=== PATIENT | male | born 1950 | race Caucasian/White ===

== ENCOUNTER 2021-01-14 12:41 | Inpatient (IN) ==
[2021-01-14] MEDS: MAGNESIUM SULFATE / D5W 1 GM/100 ML BAG IV SCH ×4 (13:26→14:55)
[2021-01-14] MEDS: METOPROLOL TARTRATE 1 MG/ML VIAL IV PRN ×3 (13:26→18:02)
--- NOTE | 2021-01-14 13:27 | XRay Report ---
XR chest 1V portable HISTORY: Atypical Chest Pain COMPARISON: None. FINDINGS: The cardiac silhouette is mildly enlarged. There is a tortuous thoracic aorta. No focal russell g consolidations to suggest pneumonia. No evidence for pulmonary edema. No pleural effusions. No pneu mothorax. Right retrocardiac linear density may represent a normal pulmonary vessel or subsegmental a telectasis. IMPRESSION: Mild cardiomegaly. Otherwise, no acute process within the chest. ACT 112: Negative or not required by law. Electronically signed by: Onel Tracy M.D. 01/14/2021 1:26 PM
[2021-01-14 13:32] LABS: Basophils # (auto) 0.01 K/uL (0-0.2); Basophils % (auto) 0.1 %; Hematocrit (blood only) 45.2 % (42-52); Hemoglobin 15.1 g/dL (14.0-18.0); Immature Granulocytes # (auto) 0.06 K/uL (0.00-0.02); Immature Granulocytes % (auto) 0.5 %; Lymphocytes # (auto) 2.52 K/uL (1.2-3.4); Lymphocytes % (auto) 22.1 %; Mean Corpuscular Hemoglobin 32.4 pg (25-34); Mean Corpuscular Hgb Conc 33.4 g/dL (32-36); Mean Platelet Volume 12.5 fL (7.4-10.4); Neutrophils # (auto) 8.01 K/uL (1.4-6.5); Neutrophils % (auto) 70.3 %; Platelet Count 274 K/uL (130-400); RDW Coefficient of Variation 13.9 % (11.5-14.5); RDW Standard Deviation 49.3 fL (36.4-46.3); Red Blood Count 4.66 M/uL (4.7-6.1)
[2021-01-14 13:39] LABS: INR 1.1 (0.9-1.1); Partial Thromboplastin Time 25.2 Seconds (21.0-31.0); Prothrombin Time 11.3 Seconds (9.0-12.0)
[2021-01-14 13:48] LABS: Albumin Level 3.7 gm/dl (3.4-5.0); BUN Creatinine Ratio 20.4 (10-20); Calcium 8.8 mg/dl (8.5-10.1); Creatinine Clr Calc Pharmacy 78.2 ml/min; Est GFR (Non-African American) 66.4 ml/min; Potassium 4.3 mmol/L (3.5-5.1)
[2021-01-14 14:03] LABS: Albumin Globulin Ratio 1.5 (0.9-2); Creatine Kinase MB 4.1 ng/ml (0.5-3.6); Globulin 2.5 gm/dl (2.5-4.0); Total Protein 6.2 gm/dl (6.4-8.2); Troponin I 0.048 ng/ml (0-0.045)
[2021-01-14] MEDS ORDERED: Heparin IV Adult Wt-Based Standard *NO* Bolus Protocol IV ONE (14:03)
[2021-01-14] MEDS: HEPARIN SODIUM/DEXTROSE 25,000 UNITS/500 ML BAG IV SCH (14:54)
[2021-01-14] MEDS ORDERED: FUROSEMIDE 40 MG/4 ML VIAL IV STA (15:24)
--- NOTE | 2021-01-14 16:51 | Emergency Department Note ---
Impression & Plan Atrial fibrillation with rapid ventricular response, Elevated troponin ED Provider Note NAME: RITU PEÑA AGE: 70 SEX: M : 1950 ARRIVES VIA: Walk-In INFORMANT: Patient, ED PROVIDER(S): Nabor Perdue MD CHIEF COMPLAINT: SOB, afib HPI: This is a 70-year-old male who presents emergency department complaining of shortness of breath. The patient reports he was diagnosed with atrial fibrillation by his primary care physician on Thursday. At that time the patient was prescribed Eliquis as well as metoprolol. The patient did not take any of his medications as he thought he was only supposed to take them if he was feeling short of breath. The patient reports he feels short of breath anytime he exerts himself. He reports rest makes this better. He reports that this sensation has been ongoing for months. 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 Prior to arriving in the emergency department the patient started his metoprolol. ROS: See above HPI for pertinent positives & negatives. A total of 10 systems reviewed and were otherwise negative. PAST MEDICAL HISTORY: See Below PAST SURGICAL HISTORY: See Below FAMILY HISTORY: See Below SOCIAL HISTORY: See Below HOME MEDICATIONS: See Below ALLERGIES: See Below VITALS: See Below PHYSICAL EXAMINATION: VITAL SIGNS - Vital signs and nursing notes were reviewed. GENERAL - 70-year-old male appearing stated age who is in no acute distress. Communicates well with provider and answers questions appropriately. SKIN - Without rashes. HEAD - NC/AT. EYES - PERRL with EOMI bilaterally. Sclera anicteric. Palpebral conjunctiva pink and moist with no injection noted. EARS - No deformities of external structures noted on gross examination bilaterally. NOSE - Midline and without cyanosis. No epistaxis or purulent drainage noted. Septum midline without deviation or septal hematoma noted. MOUTH/OROPHARYNX - Without perioral cyanosis. Buccal mucosa pink and moist and without leukoplakia. Tongue midline with equal elevation of palate bilaterally. No tonsillar hypertrophy, erythema, or exudates noted. NECK - Neck with FROM. Supple to palpation. No nuchal rigidity. LUNGS - Chest wall symmetric without accessory muscle use, intercostals retractions, or central cyanosis. Normal vesicular breath sounds CTA B/L. No wheezes, rales, or rhonchi appreciated. CARDIAC - RRR with S1/S2. No murmur, rubs, or gallops appreciated. ABDOMEN - Abdominal contour without pulsations or visible masses. BS normoactive all four quadrants. No tenderness, palpable masses, hepatosplenomegaly, or ascites noted. EXTREMITIES - No clubbing or peripheral cyanosis. No pretibial edema present. +3/5 radial, posterior tibial, and dorsalis pedis pulses palpated throughout. +5/5 strength noted in UE/LE bilaterally. NEUROLOGIC - Cranial nerves II through XII grossly intact. Sensory intact to light touch throughout. Patellar reflexes +2/4. PSYCH - A&Ox3 and cooperates fully with examiner. Pt is very pleasant and interacts well with examiner. MEDICAL DECISION MAKING: Patient was seen and evaluated as above in room A3. Review was performed of nursing notes and vital signs. I did review pertinent previous visits and patie nt history. After obtaining a thorough history and physical examination the above work up was performed. This is a 70-year-old male sent in to the emergency department over concerns about A. fib with RVR. The patient took metoprolol prior to coming into the emergency department. For this reason he was given IV Lopressor here in the emergency department. He was also given 4 g of magnesium and started on a heparin drip. Patient does have an elevation in his troponin I did discuss the case with the medicine service who did agree to meet the patient. Chest x-ray was interpreted by me does not show any evidence of pneumonia congestion pneumothorax. An order was placed for continuous cardiac monitoring. The monitor shows a rate of 167 with Afib rhythm. The patient was evaluated during a period of high volume and high acuity during the global COVID-19 pandemic, and that diagnosis was suspected/considered upon their initial presentation. Their evaluation, treatment and testing was consistent with current guidelines for patients who present with complaints or symptoms that may be related to COVID-19. Patient was seen while provider was wearing PPE. Triage Nursing notes reviewed. Prior medical records reviewed Vital Signs: reviewed and remarkable for no significant abnormalities Differential diagnosis: Reactive airway disease, pneumonia, pneumothorax, COPD, CHF, infections, cardiac ischemia, pulmonary embolism, musculoskeletal, gastrointestinal, as well as other pathologies. ER treatment provided: See below Diagnostics interpreted by me: ECG: A. fib with RVR with PVC old anterior infarct no ST elevation or depression QTC is 448 ventricular rate is [address] elevation or depression no previous EKG available. Laboratory studies: As stated above and show below. Imaging studies: See below Consultation(s): Internal Medicine Critical Care: I have personally spent greater than 30 minutes of critical care time in the direct management of this patient. This includes bedside care, interpretation of diagnostic studies, and testing, discussion with consultants, patient, and family members, and other required patient management activities. This 30 minutes is in excess of all separately billable procedures. 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 Beliefs That Will Affect Care: None Current Living Situation: Alone Other Information That Helps Us Care for You: No Feels Safe at Home: Yes Safety Concerns: Feels Safe At This Time Assistive Devices: None Allergies Allergies Allergy/AdvReac Type Severity Reaction Status Date / Time No Known Allergies Allergy Unverified 01/14/21 14:14 Home Meds Home Medications Medication Instructions Recorded Confirmed apixaban 5 mg tablet (Eliquis) 5 mg PO BID 01/14/21 01/14/21 fenofibrate nanocrystallized 145 145 mg PO DAILY 01/14/21 01/14/21 mg tablet lisinopril 40 mg tablet 40 mg PO DAILY 01/14/21 01/14/21 metoprolol tartrate 25 mg tablet 25 mg PO TID 01/14/21 01/14/21 prednisone 10 mg tablet 10 mg PO DAILY PRN 01/14/21 01/14/21 Results & Data (ED) Vital Signs Vital Signs - 24 hr 01/14/21 12:53 01/14/21 13:00 01/14/21 13:17 Temperature 36.6 C Temperature Source Skin Pulse Rate 150 H Pulse Rate [Finger] 151 H Respiratory Rate 18 20 Respiratory Effort / Characteristics Non-Labored Spontaneous Respiratory Depth Normal Respiratory Pattern Regular Blood Pressure 122/73 Blood Pressure [Left Arm] Blood Pressure [Right Arm] 113/90 Blood Pressure Mean 89 Blood Pressure Mean [Left Arm] Blood Pressure Mean [Right Arm] 97 Blood Pressure Position [Right Arm] Sitting Pulse Oximetry 95 97 Oxygen Delivery Method Room Air Room Air Sepsis Recent Fever Within 48 Hours No Sepsis New/Unexplained Change in Mental Status No Sepsis Action Taken by Nursing No Action Required 01/14/21 13:26 01/14/21 14:04 01/14/21 14:09 Temperature Temperature Source Pulse Rate 144 H 144 H Pulse Rate [Finger] 132 H Respiratory Rate 20 Respiratory Effort / Characteristics Non-Labored Spontaneous Respiratory Depth Normal Respiratory Pattern Regular Blood Pressure 113/90 109/80 Blood Pressure [Left Arm] Blood Pressure [Right Arm] 101/81 Blood Pressure Mean Blood Pressure Mean [Left Arm] Blood Pressure Mean [Right Arm] 87 Blood Pressure Position [Right Arm] Pulse Oximetry 97 Oxygen Delivery Method Room Air Sepsis Recent Fever Within 48 Hours Sepsis New/Unexplained Change in Mental Status Sepsis Action Taken by Nursing 01/14/21 15:00 01/14/21 15:18 01/14/21 16:46 Temperature Temperature Source Pulse Rate Pulse Rate [Finger] 138 H 120 H 129 H Respiratory Rate 21 20 22 Respiratory Effort / Characteristics Non-Labored Spontaneous Non-Labored Non-Labored Respiratory Depth Normal Normal Normal Respiratory Pattern Regular Blood Pressure Blood Pressure [Left Arm] 103/73 Blood Pressure [Right Arm] 104/69 98/63 L 103/73 Blood Pressure Mean Blood Pressure Mean [Left Arm] 83 Blood Pressure Mean [Right Arm] 80 74 83 Blood Pressure Position [Right Arm] Pulse Oximetry 97 96 95 Oxygen Delivery Method Room Air Room Air Room Air Sepsis Recent Fever Within 48 Hours Sepsis New/Unexplained Change in Mental Status Sepsis Action Taken by Nursing Laboratory Data Result diagrams: 01/18/21 07:02 01/18/21 07:02 Lab Results 01/14/21 01/14/21 01/14/21 Range/Units 13:13 13:13 13:13 WBC 11.40 H (4.8-10.8) K/uL RBC 4.66 L (4.7-6.1) M/uL Hgb 15.1 (14.0-18.0) g/dL Hct 45.2 (42-52) % MCV 97.0 (80-100) fL MCH 32.4 (25-34) pg MCHC 33.4 (32-36) g/dL RDW Std Deviation 49.3 H (36.4-46.3) fL RDW Coeff of Racheal 13.9 (11.5-14.5) % Plt Count 274 (130-400) K/uL MPV 12.5 H (7.4-10.4) fL Immature Gran % (Auto) 0.5 % Neut % (Auto) 70.3 % Lymph % (Auto) 22.1 % Placer % (Auto) 7.0 % Eos % (Auto) 0.0 % Baso % (Auto) 0.1 % Neut # (Auto) 8.01 H (1.4-6.5) K/uL Lymph # (Auto) 2.52 (1.2-3.4) K/uL Placer # (Auto) 0.80 H (0.11-0.59) K/uL Eos # (Auto) 0.00 (0-0.5) K/uL Baso # (Auto) 0.01 (0-0.2) K/uL Immature Gran # (Auto) 0.06 H (0.00-0.02) K/uL PT 11.3 (9.0-12.0) Seconds INR 1.1 (0.9-1.1) APTT 25.2 (21.0-31.0) Seconds PTT Ratio 1.0 Sodium 129 L (136-145) mmol/L Potassium 4.3 (3.5-5.1) mmol/L Chloride 102 (98-107) mmol/L Carbon Dioxide 24 (21-32) mmol/L Anion Gap 3.0 (3-11) BUN 23 H (7-18) mg/dl Creatinine 1.13 (0.6-1.4) mg/dl Est Cr Clr Drug Dosing 78.2 ml/min Est GFR ( Amer) 77.0 ml/min Est GFR (Non-Af Amer) 66.4 ml/min BUN/Creatinine Ratio 20.4 H (10-20) Glucose 103 H (70-99) mg/dl Calcium 8.8 (8.5-10.1) mg/dl Total Bilirubin 1.0 (0.2-1) mg/dl AST 101 H (15-37) U/L ALT 94 H (12-78) U/L Alkaline Phosphatase 50 (45-117) U/L Total Creatine Kinase 100 (39-308) U/L CK-MB (CK-2) 4.1 H (0.5-3.6) ng/ml CK/CKMB % Calc 4.1 H (0-3.0) Troponin I 0.048 H* (0-0.045) ng/ml NT-Pro-B Natriuret Pep 4963 H (0-900) pg/ml Total Protein 6.2 L (6.4-8.2) gm/dl Albumin 3.7 (3.4-5.0) gm/dl Globulin 2.5 (2.5-4.0) gm/dl Albumin/Globulin Ratio 1.5 (0.9-2) COVID-19 Eval Order SARS-CoV-2 (PCR) (Negative) 01/14/21 01/14/21 Range/Units 13:56 13:56 WBC (4.8-10.8) K/uL RBC (4.7-6.1) M/uL Hgb (14.0-18.0) g/dL Hct (42-52) % MCV (80-100) fL MCH (25-34) pg MCHC (32-36) g/dL RDW Std Deviation (36.4-46.3) fL RDW Coeff of Racheal (11.5-14.5) % Plt Count (130-400) K/uL MPV (7.4-10.4) fL Immature Gran % (Auto) % Neut % (Auto) % Lymph % (Auto) % Placer % (Auto) % Eos % (Auto) % Baso % (Auto) % Neut # (Auto) (1.4-6.5) K/uL Lymph # (Auto) (1.2-3.4) K/uL Placer # (Auto) (0.11-0.59) K/uL Eos # (Auto) (0-0.5) K/uL Baso # (Auto) (0-0.2) K/uL Immature Gran # (Auto) (0.00-0.02) K/uL PT (9.0-12.0) Seconds INR (0.9-1.1) APTT (21.0-31.0) Seconds PTT Ratio Sodium (136-145) mmol/L Potassium (3.5-5.1) mmol/L Chloride (98-107) mmol/L Carbon Dioxide (21-32) mmol/L Anion Gap (3-11) BUN (7-18) mg/dl Creatinine (0.6-1.4) mg/dl Est Cr Clr Drug Dosing ml/min Est GFR ( Amer) ml/min Est GFR (Non-Af Amer) ml/min BUN/Creatinine Ratio (10-20) Glucose (70-99) mg/dl Calcium (8.5-10.1) mg/dl Total Bilirubin (0.2-1) mg/dl AST (15-37) U/L ALT (12-78) U/L Alkaline Phosphatase (45-117) U/L Total Creatine Kinase (39-308) U/L CK-MB (CK-2) (0.5-3.6) ng/ml CK/CKMB % Calc (0-3.0) Troponin I (0-0.045) ng/ml NT-Pro-B Natriuret Pep (0-900) pg/ml Total Protein (6.4-8.2) gm/dl Albumin (3.4-5.0) gm/dl Globulin (2.5-4.0) gm/dl Albumin/Globulin Ratio (0.9-2) COVID-19 Eval Order Covid19 at [facility] SARS-CoV-2 (PCR) NEGATIVE (Negative) Administered Medications Apixaban (Apixaban 5 Mg Tablet) 5 mg PO BID FORMERLY [facility], 1928[facility]1983 Stop: 02/15/21 20:59 Last Admin: 01/18/21 08:05 Dose: 5 mg Documented by: [id number] Admin: 01/17/21 19:58 Dose: 5 mg Documented by: [id number] Admin: 01/17/21 09:11 Dose: 5 mg Documented by: [id number] Admin: 01/16/21 20:41 Dose: 5 mg Documented by: [id number] Digoxin (Digoxin 0.125 Mg Tab) 0.125 mg PO DAILY@1600 FOR[facility]LY [facility], [facility]–1983 Stop: 02/15/21 15:59 Last Admin: 01/18/21 15:47 Dose: 0.125 mg Documented by: [id number] Admin: 01/17/21 16:57 Dose: 0.125 mg Documented by: [id number] Admin: 01/16/21 16:30 Dose: 0.125 mg Documented by: [id number] Folic Acid (Folic Acid 1 Mg Tab) 1 mg PO QAM TERRY Stop: 02/14/21 12:29 Last Admin: 01/18/21 08:05 Dose: 1 mg Documented by: [id number] Admin: 01/17/21 09:11 Dose: 1 mg Documented by: [id number] Admin: 01/16/21 07:41 Dose: 1 mg Documented by: [id number] Admin: 01/15/21 13:31 Dose: 1 mg Documented by: [id number] Guaifenesin/Dextromethorphan (Guaifenesin/Dextrom Syrup 100mg/10mg 5ml Udc) 5 ml PO Q6H PRN PRN Reason: Cough Stop: 02/17/21 18:51 Last Admin: 01/18/21 19:29 Dose: 5 ml Documented by: [id number] Thiamine HCl (Thiamine Hcl 100 Mg Tab) 100 mg PO QAM TERRY Stop: 02/14/21 12:29 Last Admin: 01/18/21 08:05 Dose: 100 mg Documented by: [id number] Admin: 01/17/21 09:10 Dose: 100 mg Documented by: [id number] Admin: 01/16/21 07:41 Dose: 100 mg Documented by: [id number] Admin: 01/15/21 13:31 Dose: 100 mg Documented by: [id number] Discontinued Medications Amiodarone HCl (Amiodarone Iv Bolus & Drip) 1 ea IV NOW STA; Protocol Stop: 01/14/21 18:34 Last Admin: 01/14/21 19:45 Dose: Not Given Documented by: [id number] Apixaban (Apixaban 2.5 Mg Tab) 5 mg PO BID TERRY Stop: 02/14/21 08:59 Last Admin: 01/16/21 07:40 Dose: 5 mg Documented by: [id number] Admin: 01/15/21 20:46 Dose: 5 mg Documented by: [id number] Admin: 01/15/21 09:13 Dose: 5 mg Documented by: [id number] Benzocaine/Butamben/Tetracaine HCl (Benzocain/Tetraca/Butam Knott 200 Appln/20 Gm Decherd) Confirm Administered Dose 1 appln EXT .STK-MED ONE Stop: 01/16/21 12:05 Last Admin: 01/16/21 13:57 Dose: Not Given Documented by: [id number] Benzocaine/Butamben/Tetracaine HCl (Benzocain/Tetraca/Butam Knott 200 Appln/20 Gm Decherd) Confirm Administered Dose 1 appln EXT .STK-MED ONE Stop: 01/16/21 12:06 Last Admin: 01/16/21 13:57 Dose: Not Given Documented by: [id number] Fenofibrate (Fenofibrate Nanocrystallized 145 Mg Tablet) 145 mg PO HS [facility], [facility]1983 Stop: 02/13/21 23:29 Last Admin: 01/15/21 20:43 Dose: 145 mg Documented by: [id number] Admin: 01/14/21 23:31 Dose: 145 mg Documented by: [id number] Fentanyl Citrate (Fentanyl Citrate 100 Mcg/2 Ml Vial) Confirm Administered Dose 100 mcg .ROUTE .STK-MED ONE Stop: 01/16/21 11:29 Last Admin: 01/16/21 13:56 Dose: Not Given Documented by: [id number] Furosemide (Furosemide 40 Mg/4 Ml Vial) 40 mg IV NOW STA Stop: 01/14/21 15:25 Last Admin: 01/14/21 15:40 Dose: 40 mg Documented by: [id number] Furosemide (Furosemide 40 Mg Tab) 40 mg PO QAM [facility], [facility]1983 Stop: 02/17/21 08:59 Last Admin: 01/18/21 08:05 Dose: 40 mg Documented by: [id number] Heparin Sodium/Dextrose (Heparin Iv Adult Wt-Based Standard *No* Bolus Protocol) 1 ea IV ONE ONE; Protocol Stop: 01/14/21 14:04 Last Admin: 01/14/21 14:54 Dose: Not Given Documented by: [id number] Magnesium Sulfate/Dextrose (Magnesium Sulfate / D5w) 1 gm in 100 mls @ 200 mls/hr IV Q30M TERRY Stop: 01/14/21 14:18 Last Infusion: 01/14/21 15:25 Dose: 0 mls/hr Documented by: [id number] Admin: 01/14/21 14:55 Dose: 200 mls/hr Documented by: [id number] Infusion: 01/14/21 14:46 Dose: 0 mls/hr Documented by: [id number] Admin: 01/14/21 13:26 Dose: 200 mls/hr Documented by: [id number] Magnesium Sulfate/Dextrose (Magnesium Sulfate / D5w) 1 gm in 100 mls @ 200 mls/hr IV Q30M TERRY Stop: 01/14/21 14:19 Last Infusion: 01/14/21 16:48 Dose: 0 mls/hr Documented by: [id number] Admin: 01/14/21 14:55 Dose: 200 mls/hr Documented by: [id number] Infusion: 01/14/21 14:46 Dose: 0 mls/hr Documented by: [id number] Admin: 01/14/21 13:26 Dose: 200 mls/hr Documented by: [id number] Heparin Sodium/Dextrose (Heparin Sodium/Dextrose) 25,000 units in 500 mls @ 30 mls/hr IV .[id number] FOR[facility], [facility]; Protocol Stop: 02/13/21 14:29 Last Titration: 01/15/21 09:11 Dose: 0 units/hr, 0 mls/hr Documented by: [id number] Cosigned by: [id number] Admin: 01/15/21 06:38 Dose: 1,500 units/hr, 30 mls/hr Documented by: [id number] Cosigned by: [id number] Titration: 01/15/21 06:38 Dose: 1,500 units/hr, 30 mls/hr Documented by: [id number] Cosigned by: [id number] Titration: 01/15/21 02:37 Dose: 1,500 units/hr, 30 mls/hr Documented by: [id number] Cosigned by: [id number] Titration: 01/14/21 21:43 Dose: 1,600 units/hr, 32 mls/hr Documented by: [id number] Cosigned by: [id number] Admin: 01/14/21 14:54 Dose: 1,600 units/hr, 32 mls/hr Documented by: [id number] Cosigned by: [id number] Amiodarone HCl/Dextrose (Nexterone / D5w) 150 mg in 100 mls @ 600 mls/hr IV NOW [facility] Stop: 01/14/21 18:42 Last Infusion: 01/14/21 19:19 Dose: 0 mls/hr Documented by: [id number] Cosigned by: [id number] Admin: 01/14/21 19:08 Dose: 600 mls/hr Documented by: [id number] Cosigned by: [id number] Amiodarone HCl/Dextrose (Nexterone / D5w) 360 mg in 200 mls @ 33.333 mls/hr IV ONE ONE Stop: 01/15/21 00:38 Last Admin: 01/14/21 19:47 Dose: Not Given Documented by: [id number] Digoxin 250 mcg/ Syringe 10 mls @ 2 mls/min IV ONE ONE Stop: 01/15/21 08:49 Last Admin: 01/15/21 09:14 Dose: 2 mls/min Documented by: [id number] Furosemide 40 mg/ Syringe 4 mls @ 4 mls/min IV ONE ONE Stop: 01/15/21 09:01 Last Admin: 01/15/21 09:13 Dose: 4 mls/min Documented by: [id number] Digoxin 250 mcg/ Syringe 10 mls @ 2 mls/min IV Q8H [facility], [facility]1983 Stop: 01/16/21 07:00 Last Admin: 01/16/21 02:21 Dose: 2 mls/min Documented by: [id number] Admin: 01/15/21 18:12 Dose: 2 mls/min Documented by: [id number] Admin: 01/15/21 12:16 Dose: 2 mls/min Documented by: [id number] Furosemide 40 mg/ Syringe 5 mls @ 4 mls/min IV [id number] [facility], [facility]–1983 Stop: 02/14/21 16:59 Last Admin: 01/17/21 09:11 Dose: 4 mls/min Documented by: [id number] Admin: 01/16/21 16:28 Dose: 4 mls/min Documented by: [id number] Admin: 01/16/21 07:42 Dose: 4 mls/min Documented by: [id number] Admin: 01/15/21 17:06 Dose: 4 mls/min Documented by: [id number] Magnesium Sulfate/Dextrose (Magnesium Sulfate / D5w) 1 gm in 100 mls @ 50 mls/hr IV Q2H TERRY Stop: 01/16/21 16:29 Last Infusion: 01/16/21 17:43 Dose: 0 mls/hr Documented by: [id number] Admin: 01/16/21 15:23 Dose: 50 mls/hr Documented by: [id number] Infusion: 01/16/21 15:18 Dose: 50 mls/hr Documented by: [id number] Admin: 01/16/21 13:18 Dose: 50 mls/hr Documented by: [id number] Magnesium Sulfate/Dextrose (Magnesium Sulfate / D5w) 1 gm in 100 mls @ 50 mls/hr IV ONE ONE Stop: 01/17/21 12:59 Last Infusion: 01/17/21 13:21 Dose: 0 mls/hr Documented by: [id number] Admin: 01/17/21 11:12 Dose: 50 mls/hr Documented by: [id number] Lidocaine HCl (Lidocaine 2% 2 Ml Vial/Amp(20mg/Ml)) Confirm Administered Dose 4 ml INFIL .STK-MED ONE Stop: 01/16/21 11:29 Last Admin: 01/16/21 13:57 Dose: Not Given Documented by: [id number] Metoprolol Tartrate (Metoprolol Tartrate 1 Mg/Ml Vial) 5 mg IV Q5M PRN PRN Reason: Tachycardia Stop: 02/13/21 13:18 Last Admin: 01/14/21 18:02 Dose: 5 mg Documented by: [id number] Admin: 01/14/21 14:09 Dose: 5 mg Documented by: [id number] Admin: 01/14/21 13:26 Dose: 5 mg Documented by: [id number] Metoprolol Tartrate (Metoprolol Tartrate 25 Mg Tab) 25 mg PO Q6H TERRY Stop: 02/13/21 19:29 Last Admin: 01/16/21 18:28 Dose: 25 mg Documented by: [id number] Admin: 01/16/21 14:03 Dose: 25 mg Documented by: [id number] Admin: 01/16/21 06:30 Dose: 25 mg Documented by: [id number] Admin: 01/16/21 01:34 Dose: Not Given Documented by: [id number] Admin: 01/15/21 18:35 Dose: 25 mg Documented by: [id number] Admin: 01/15/21 13:31 Dose: 25 mg Documented by: [id number] Admin: 01/15/21 06:01 Dose: 25 mg Documented by: [id number] Admin: 01/15/21 02:01 Dose: Not Given Documented by: [id number] Admin: 01/14/21 20:42 Dose: 25 mg Documented by: [id number] Metoprolol Tartrate (Metoprolol Tartrate 25 Mg Tab) 25 mg PO Q6H PRN PRN Reason: HR >140 Stop: 02/13/21 19:29 Last Admin: 01/16/21 10:25 Dose: 25 mg Documented by: [id number] Admin: 01/15/21 18:11 Dose: 25 mg Documented by: [id number] Metoprolol Tartrate (Metoprolol Tartrate 25 Mg Tab) 25 mg PO QAM ONE Stop: 01/18/21 13:51 Last Admin: 01/18/21 14:56 Dose: 25 mg Documented by: [id number] Miscellaneous (Stat Iv Infusion Titration Per Protocol) 1 ea N/A NOW STA Stop: 01/14/21 18:34 Last Admin: 01/14/21 19:46 Dose: Not Given Documented by: [id number] Phenylephrine HCl (Phenylephrine Hcl 10 Mg/Ml Vial) Confirm Administered Dose 10 mg .ROUTE .STK-MED ONE Stop: 01/16/21 11:29 Last Admin: 01/16/21 13:57 Dose: Not Given Documented by: [id number] Potassium Chloride (Potassium Chloride Crtab 20 Meq Tabcr) 40 meq PO ONE ONE Stop: 01/15/21 17:01 Last Admin: 01/15/21 17:05 Dose: 40 meq Documented by: [id number] Potassium Chloride (Potassium Chloride Crtab 20 Meq Tabcr) 40 meq PO NOW STA Stop: 01/16/21 12:14 Last Admin: 01/16/21 13:18 Dose: 40 meq Documented by: [id number] Potassium Chloride (Potassium Chloride Crtab 20 Meq Tabcr) 40 meq PO NOW STA Stop: 01/16/21 17:49 Last Admin: 01/16/21 18:08 Dose: 40 meq Documented by: [id number] Potassium Chloride (Potassium Chloride Crtab 20 Meq Tabcr) 40 meq PO NOW STA Stop: 01/17/21 10:34 Last Admin: 01/17/21 11:13 Dose: 40 meq Documented by: [id number] Propofol (Propofol Iv Emulsion 10 Mg/Ml 20 Ml Vial) Confirm Administered Dose 400 mg IV .STK-MED ONE Stop: 01/16/21 11:29 Last Admin: 01/16/21 13:57 Dose: Not Given Documented by: [id number] Sotalol HCl (Sotalol Hcl 80 Mg Tab) 80 mg PO Q12 TERRY Stop: 02/15/21 20:59 Last Admin: 01/18/21 08:05 Dose: 80 mg Documented by: [id number] Admin: 01/17/21 19:59 Dose: 80 mg Documented by: [id number] Admin: 01/17/21 09:10 Dose: 80 mg Documented by: [id number] Admin: 01/16/21 20:41 Dose: 80 mg Documented by: [id number] Imaging Data Radiologist's Impression: Chest X-Ray 01/14/21 13:04 XR chest 1V portable HISTORY: Atypical Chest Pain COMPARISON: None. FINDINGS: The cardiac silhouette is mildly enlarged. There is a tortuous t horacic aorta. No focal lung consolidations to suggest pneumonia. No evidence for pulmonary edema. No pleural effusions. No pneumothorax. Right retrocardiac linear density may represent a normal pulmonary vessel or subsegmental atelectasis. IMPRESSION: Mild cardiomegaly. Otherwise, no acute process within the chest. ACT 112: Negative or not required by law. Electronically signed by: Onel Tracy M.D. 01/14/2021 1:26 PM Discharge Plan Visit Data Chief Complaint: Swelling/Edema to Extremity Stated Complaint: bi-lat leg swelling, ref by ED Provider: Nabor Perdue Discharge Problem: Atrial fibrillation with rapid ventricular response, Elevated troponin Discharge Instructions Interventions: ED Discharge Assessment Last Done: 01/14/21 18:58
--- NOTE | 2021-01-14 18:12 | Electrocardiogram Report ---
Test Reason : Blood Pressure : / mmHG Vent. Rate : 150 BPM Atrial Rate : 174 BPM P-R Int : 000 ms QRS Dur : 084 ms QT Int : 284 ms P-R-T Axes : 000 065 167 degrees QTc Int : 448 ms Atrial fibrillation with rapid ventricular response with premature ventricular or aberrantly conducte d complexes Abnormal ECG No previous ECGs available Confirmed by Feliciano Stewart ([id number]) on 01/14/2021 6:12:05 PM Referred By: REFERRED SELF Confirmed By:Enrrique Stewart
--- NOTE | 2021-01-14 18:23 | History & Physical Report ---
Date of Service January 14, 2021 Assessment & Plan (1) Atrial fibrillation with rapid ventricular response: Plan: Jorge A Recinos is a 70 yo male with PMHx significant for HTN and dyslipidemia who was will be admitted to [facility] on 01/14 for new a-fib with RVR and associated hyper volemia. Atrial Fibrillation with Rapid Ventricular Response New diagnosis as of 01/11. Rates uncontrolled despite several doses of IV BBs and Mg. Suspect acute CHF was brought on by this (see below). - will initiate Amiodarone bolus + gtt - continue Heparin gtt for now - CHADS-VASc score of 2 - would recommend chronic anti-coagulation - Cardiology consulted - appreciate recs Hypervolemia Several weeks of progressive orthopnea/dyspnea/LE edema, hypervolemic on exam, CXR with cardiomegaly, BNP 4963. Suspect acute CHF in context of uncontrolled a- fib. - TTE ordered - pending - will defer Lasix for now given hypotensive; suspect volume status will improve with control of a-fib - Cardiology consulted as stated above Elevated Troponin No chest pain and EKG with ST/T changes but Troponin elevated at 0.048. Suspect demand ischemia in setting of a-fib with RVR and acute CHF. - trend Troponin to peak - SL Nitro PRN for chest pain - EKG PRN for chest pain Transaminitis Per [facility] records, patient's LFTs were normal one week ago. Now AST 101 and ALT 94. Suspect hepatic congestion in setting of above. - RUQ US ordered - pending - trend LFTs in the AM Hyponatremia Likely due to hypervolemia. - trend BMP daily HTN/Dyslipidemia - held home Lisinopril due to hypotension - continue home fenofibrate FEN/GI: heart-healthy diet DVT Prophylaxis: Heparin gtt Code Status: full code, discussed with patient Disposition: PCU with tele (2) Transaminitis: (3) Hypertension: (4) Dyslipidemia: (5) Gout: History of Present Illness Chief Complaint: a-fib with RVR Primary Care Provider: Dr. Lilia Jeffers Jorge A Recinos is a 70 yo male with PMHx significant for HTN and dyslipidemia who was sent to [facility] ED by [facility] for new a-fib with RVR. He was diagnosed by PCP (Dr. Jeffers - [facility]) on 01/11. He was prescribed Metoprolol tartrate 50mg PO TID and took this several times over the course of 3 days; was also prescribed Eliquis but did not take this. Presented to [facility] (Melba Riley) on 01/14 in a-fib with RVR and was sent to [facility] ED. En route to the ED he took another dose of home Metoprolol. Patient reports ~one month of progressive dyspnea on exertion, PND, orthopnea and LE edema. He denies chest pain or palpitations and reports he was unaware of his rapid heart beat. Denies previous history of heart disease or atrial fibrillation. Denies recent changes in medications. Denies recent illnesses or sick contacts, fever/chills, cough, wheezing, N/V, abdominal pain, rash. In the ED the patient was in a-fib with RVR, rates of 140s-150s. He received two doses of Lopressor 5mg IV and two doses of Magnesium IV but rates only slightly improved to 130s, and he became borderline hypotensive at 92/68. He was started on Heparin gtt and we were consulted for admission. Allergies Allergy/AdvReac Type Severity Reaction Status Date / Time No Known Allergies Allergy Unverified 01/14/21 14:14 Home Medications Medication Instructions Recorded Confirmed Type apixaban 5 mg tablet (Eliquis) 5 mg PO BID 01/14/21 01/14/21 History fenofibrate nanocrystallized 145 145 mg PO DAILY 01/14/21 01/14/21 History mg tablet lisinopril 40 mg tablet 40 mg PO DAILY 01/14/21 01/14/21 History metoprolol tartrate 25 mg tablet 25 mg PO TID 01/14/21 01/14/21 History prednisone 10 mg tablet 10 mg PO DAILY PRN 01/14/21 01/14/21 History Past Med/Surg History Social History Smoking Status: Never smoker Feels Safe at Home: Yes Review of Systems Review of Systems: All systems reviewed & are unremarkable except as noted in Subjective Physical Exam Physical Exam: General: A&Ox3. NAD. Cooperative. HEENT: Atraumatic, normocephalic. Pulm: CTAB A&P. -wheezes, -rales, -rhonchi. Symmetrical chest rise. No increase work of breathing. No respiratory distress. Cardiac: irregularly irregular rhythm and tachycardic rate. +S3. Radial pulses intact and symmetrical. 3+ pitting edema up to knees bilaterally. +JVD. Abdominal: soft, non-tender, non-distended, BS x 4 Skin: warm, dry, no rash Results & Data Results & Data ([facility]) Vital Signs (Past 12 Hours) Vital Signs Temp Pulse Pulse Resp BP BP BP 01/14/21 18:02 142 H 106/86 01/14/21 18:00 142 H 18 106/86 106/86 01/14/21 16:46 129 H 22 103/73 103/73 01/14/21 15:18 120 H 20 98/63 L 01/14/21 15:00 138 H 21 104/69 01/14/21 14:09 144 H 109/80 01/14/21 14:04 132 H 20 101/81 01/14/21 13:26 144 H 113/90 01/14/21 13:00 151 H 20 113/90 01/14/21 12:53 36.6 C 150 H 18 122/73 Pulse Ox 01/14/21 18:02 01/14/21 18:00 99 01/14/21 16:46 95 01/14/21 15:18 96 01/14/21 15:00 97 01/14/21 14:09 01/14/21 14:04 97 01/14/21 13:26 01/14/21 13:00 97 01/14/21 12:53 95 Supervising Physician Co-Signing Physician Notes Patient seen and examined, chart reviewed, case discussed with Dr. Lazcano and I agree with the assessment and plan as above except as otherwise noted above. General: A&Ox3. NAD. Cooperative. HEENT: Atraumatic, normocephalic. PERLAA. Pulm: CTAB A&P. -wheezes, -rales, -rhonchi. Symmetrical chest rise. No increase work of breathing. No respiratory distress. Cardiac: Tachycardic, -mrg. Radial pulses intact and symmetrical. 3+ pitting edema of the lower extremities bilaterally, JVD to 2 cm above the clavicle noted. Abdominal: Nontender, nondistended, soft. BS present. All labs and images reviewed Jorge A Recinos is a 70-year-old male with a past medical history of A. fib with RVR and hypertension who presents to the emergency department with A. fib RVR and evidence of rate related pulmonary and hepatic congestion. Patient took a dose of metoprolol just prior to arriving to the emergency department. Given borderline hypotension, no evidence of failure, and inadequate rate control will admit on amiodarone drip. Patient had not taken outpatient DOAC, will admit on heparin GTT for A. fib thrombus prophylaxis. Mild troponin, 0.048 elevation suspect rate related. Will trend overnight, clinically asymptomatic at time of bedside assessment. TTE pending. Resident Activity Tracking Resident Involvement: Resident Care Provided Care Provided: Adult Hospital Medicine
[2021-01-14] MEDS ORDERED: STAT IV Infusion **Titration per Protocol STA (18:33)
[2021-01-14] MEDS ORDERED: NITROGLYCERIN SL 0.4 MG/TAB TAB SL PRN (18:33)
[2021-01-14] MEDS ORDERED: AMIODARONE IV BOLUS & DRIP IV STA (18:33)
[2021-01-14] MEDS ORDERED: AMIODARONE / D5W 150 MG/100 ML BAG IV STA (18:33)
[2021-01-14] MEDS: AMIODARONE / D5W 360 MG/200 ML BAG IV ONE ×2 (19:02→19:47)
[2021-01-14] MEDS ORDERED: LORazepam 1 MG TAB PO PRN (19:31)
[2021-01-14] MEDS ORDERED: ACETAMINOPHEN 325 MG TAB PO PRN (19:32)
[2021-01-14] MEDS ORDERED: 0.2 MICRON FILTER SET 1 EA IV ONE (19:32)
[2021-01-14] MEDS: METOPROLOL TARTRATE 25 MG TAB PO SCH (20:42)
[2021-01-14] MEDS ORDERED: Nursing to Pharmacy Communication SCH (20:45)
[2021-01-14 21:31] LABS: Partial Thromboplastin Ratio 1.9
[2021-01-14 21:37] LABS: Partial Thromboplastin Time 50.3 Seconds (21.0-31.0)
[2021-01-14] MEDS: FENOFIBRATE NANOCRYSTALLIZED 145 MG TABLET PO SCH (23:31)
[2021-01-15] MEDS ORDERED: AMIODARONE / D5W 360 MG/200 ML BAG IV SCH (00:30)
[2021-01-15] MEDS: METOPROLOL TARTRATE 25 MG TAB PO SCH ×4 (02:01→18:35)
[2021-01-15 02:08] LABS: Eosinophils # (auto) 0.02 K/uL (0-0.5); Eosinophils % (auto) 0.2 %; Hematocrit (blood only) 42.5 % (42-52); Hemoglobin 14.5 g/dL (14.0-18.0); Immature Granulocytes # (auto) 0.09 K/uL (0.00-0.02); Immature Granulocytes % (auto) 0.8 %; Lymphocytes # (auto) 2.33 K/uL (1.2-3.4); Lymphocytes % (auto) 20.9 %; Mean Corpuscular Hemoglobin 32.7 pg (25-34); Mean Corpuscular Hgb Conc 34.1 g/dL (32-36); Mean Corpuscular Volume 95.7 fL (80-100); Mean Platelet Volume 12.6 fL (7.4-10.4); Monocytes # (auto) 0.76 K/uL (0.11-0.59); Monocytes % (auto) 6.8 %; Neutrophils # (auto) 7.96 K/uL (1.4-6.5); Neutrophils % (auto) 71.3 %; Platelet Count 231 K/uL (130-400); RDW Coefficient of Variation 13.8 % (11.5-14.5); RDW Standard Deviation 48.3 fL (36.4-46.3); Red Blood Count 4.44 M/uL (4.7-6.1); White Blood Count 11.16 K/uL (4.8-10.8)
[2021-01-15 02:29] LABS: Albumin Level 3.2 gm/dl (3.4-5.0); BUN Creatinine Ratio 23.9 (10-20); Calcium 8.3 mg/dl (8.5-10.1); Creatinine Clr Calc Pharmacy 74.7 ml/min; Est GFR (African American) 73.1 ml/min; Potassium 4.1 mmol/L (3.5-5.1)
[2021-01-15 02:31] LABS: INR 1.2 (0.9-1.1); Partial Thromboplastin Ratio 3.1; Prothrombin Time 12.3 Seconds (9.0-12.0)
[2021-01-15 02:33] LABS: Partial Thromboplastin Time 81.4 Seconds (21.0-31.0)
[2021-01-15 02:42] LABS: Albumin Globulin Ratio 1.4 (0.9-2); Bilirubin,Total 1.2 mg/dl (0.2-1); Globulin 2.3 gm/dl (2.5-4.0); Total Protein 5.5 gm/dl (6.4-8.2); Troponin I 0.06 ng/ml (0-0.045)
[2021-01-15] MEDS: HEPARIN SODIUM/DEXTROSE 25,000 UNITS/500 ML BAG IV SCH (06:38)
--- NOTE | 2021-01-15 07:24 | Ultrasound Report ---
US liver HISTORY: 70 years-old Male transaminitis acutely elevated LFTs COMPARISON: None TECHNIQUE: Multiple real-time sonographic images of the abdominal right upper quadrant were obtained assessing grayscale appearance and color flow FINDINGS: The imaged pancreas is unremarkable. Coarsened echotexture of the liver with mild marginal nodularity . Trace perihepatic ascites. The liver measures up to 15.1 cm in length. 7 mm left hepatic lobe cyst. Questioned hypoechoic lesion versus heterogeneous parenchyma measures 9 mm within the right hepatic lobe on image 64 without color flow. Partial distention of the gallbladder with wall thickening measuring up to 5 mm. No shadowing choleli thiasis. Negative sonographic Soliman's sign. Minimal echogenic foci of the gallbladder wall is artifa ct suggestive of adenomyomatosis. Normal common bile duct, 5 mm. The imaged right kidney is unremarkable without hydronephrosis. IMPRESSION: 1. Coarsened echotexture of the liver with marginal nodularity suggestive of cirrhosis. Trace perihep atic ascites. 2. Gallbladder wall thickening with partial distention may be secondary to hepatocellular disease. No cholelithiasis identified. 3. Suggested adenomyomatosis of the gallbladder. 4. Indeterminate 9 mm hypoechoic lesion of the right hepatic lobe. ACT 112: Negative or not required by law. The above report was generated using voice recognition software. It may contain grammatical, syntax o r spelling errors. Electronically signed by: Angel Lindquist M.D. 01/15/2021 7:23 AM
[2021-01-15] MEDS ORDERED: DIGOXIN 250 MCG in SYRINGE 9 ML IV ONE (08:45)
--- NOTE | 2021-01-15 08:47 | Cardiology Consultation ---
Date of Consultation January 15, 2021 Assessment & Plan (1) Atrial fibrillation with rapid ventricular response: Impressions: Impression: 1. A fib RVR 2. Heart failure secondary to rapid rate - echo pending 3. Htn 4. Alcohol abuse with apparent cirrhosis on ultrasound this admission Mr. Recinos is overall tolerating his higher heart rates fairly well. His blood pressures are stable to mildly hypotensive. Continue with metoprolol 25 mg po qid. I will add digoxin .25 x 3 doses today to try and get him slowed down a bit without causing further hypotension. He can discontinue the heparin gtt and start po Eliquis. We had discussed risks and benefits of anticoagulation and his CHADS-VASc risk in the office - initially calculated at 2 but with heart failure exacerbation now 3. I will give another 40 mg IV furosemide, hopefully his pressure will tolerate but he was quite fluid overloaded with a bnp over 4,000 and would probably benefit with another dose of diuretic. We can likely discontinue further diuresis after that as his BUN is trending upward. Unfortunately, his EF is 15%. Getting his rate under control is going to be a significant challenge. We discussed with EP. Amiodarone would not be a great option given his newly diagnosed cirrhosis. Dr. Stewart will see him today and likely proceed with a sotalol load with cardioversion or Thursday. Obviously alcohol cessation is going to be very important once we get him past this acute stage. History of Present Illness Attending Physician: Joy Cowan MD History of Present Illness Mr. Recinos presented to the cardiology clinic to establish care for new a fib. He was discovered to be in A fib RVR at his pcp's office on Thursday with a heart rate in the 170s. He was placed on Eliquis and given a pill in pocket of 25 mg metoprolol tid for elevated heart rate. He had taken about 5 doses of metoprolol over the weekend. He began noticing decreased exercise tolerance about a month ago with sob when previously he had been walking about 3-6 miles per day at his work site without difficulty. A week and a half ago he noticed swelling in his lower extremities and could not longer get his boots on. He has also been feeling that his pants were tighter and belly mcmanus but he had less appetite and was eating less. His left foot was hurting and swollen so he was self dosing prednisone to treat gout. He did not have any sensation of palpitations. He was to start Eliquis after seeing his pcp but misunderstood and was taking it prn when his heart rate was fast this weekend. He does snore and sleeps poorly awakening frequently. No dizziness. In the clinic his heart rate was 150 with clear fluid overload and so he was referred to the ED. Today he has no complaints. His heart rate continues to be tachycardic in the 120s-150s on the monitor. He has noticed his edema is significantly decreased. Hx htn, and hypertriglycerides, Social: half a bottle of wine and a mixed drink daily, drinks a pot of coffee per day, never smoker, works as a contractor Allergies Allergy/AdvReac Type Severity Reaction Status Date / Time No Known Allergies Allergy Unverified 01/14/21 14:14 Home Medications Medication Instructions Recorded Confirmed Type apixaban 5 mg tablet (Eliquis) 5 mg PO BID 01/14/21 01/14/21 History fenofibrate nanocrystallized 145 145 mg PO DAILY 01/14/21 01/14/21 History mg tablet lisinopril 40 mg tablet 40 mg PO DAILY 01/14/21 01/14/21 History metoprolol tartrate 25 mg tablet 25 mg PO TID 01/14/21 01/14/21 History prednisone 10 mg tablet 10 mg PO DAILY PRN 01/14/21 01/14/21 History Patient History Social History Smoking Status: Never smoker Hx Alcohol Use: Yes Alcohol type: wine Hx Substance Use: No Preferred Language: Cambodian Communication Ability: Effective Sole Cementer Required: No Beliefs That Will Affect Care: None Current Living Situation: Alone Other Information That Helps Us Care for You: No Feels Safe at Home: Yes Safety Concerns: Feels Safe At This Time Assistive Devices: None Review of Systems Review of Systems: All systems reviewed & are unremarkable except as noted in HPI & below Physical Exam Constitutional: WD/WN, vitals as above Respiratory: normal respiratory effort, lungs clear to auscultation Cardiovascular: Rate/Rhythm: + abnormal rate and + abnormal rhythm Heart Sounds: normal S1 and normal S2; no murmur Extremities: + edema (trace) Results & Data ([facility]) Vital Signs (Past 12 Hours) Vital Signs Temp Pulse Pulse Resp BP BP Pulse Ox 01/15/21 08:03 36.5 C 126 H 16 111/76 100 01/15/21 06:00 116/74 01/15/21 03:30 36.5 C 131 H 18 98/78 L 97 01/15/21 01:39 92/65 L 01/14/21 23:41 144 H 01/14/21 23:19 36.4 C L 126 H 17 91/63 L 98
[2021-01-15] MEDS ORDERED: FENOFIBRATE NANOCRYSTALLIZED 145 MG TABLET PO SCH (09:00)
[2021-01-15] MEDS ORDERED: FUROSEMIDE 40 MG in SYRINGE 0 ML IV ONE (09:00)
[2021-01-15 09:08] LABS: Partial Thromboplastin Ratio 3.9
[2021-01-15] MEDS: APIXABAN 2.5 MG TAB PO SCH ×2 (09:13→20:46)
[2021-01-15 09:14] LABS: Partial Thromboplastin Time 102.5 Seconds (21.0-31.0)
--- NOTE | 2021-01-15 11:43 | XCELERA ---
[id number]
[2021-01-15] MEDS: DIGOXIN 250 MCG in SYRINGE 9 ML IV SCH ×2 (12:16→18:12)
--- NOTE | 2021-01-15 12:20 | Hospitalist Progress Note ---
Date of Service January 15, 2021 Assessment & Plan (1) Atrial fibrillation with rapid ventricular response: Plan: Jorge A Recinos is a 70 yo male with PMHx significant for HTN and dyslipidemia who was is admitted to [facility] on 01/14 for new a-fib with RVR and associated hypervolemia. Atrial Fibrillation with Rapid Ventricular Response New diagnosis as of 01/11, but patient reports he has been feeling dyspneic on exertion for several weeks as well as development of lower extremity swelling in the last 2 weeks. Rates uncontrolled despite several doses of IV BBs and Mg. Suspect acute systolic CHF was brought on by this (see below). Rates continue to be rapid despite addition of p.o. metoprolol and electrolyte repletion Appreciate cardiology consultation Echocardiogram with severely reduced EF 15% With evidence of cirrhosis on imaging and elevated LFTs indicating chronic liver disease -Loading with digoxin -Hold off on antiarrhythmics until after PAWAN performed in the morning -N.p.o. after midnight for PAWAN -Plan for sotalol load and possible DC cardioversion later this week if sotalol unsuccessful - CHADS-VASc score of 2 - would recommend chronic zzcm-gebxgepvnfa-Mffesfj drip converted to Eliquis today by cardiology -Continue monitoring telemetry Continue to follow BMP magnesium and replace as needed -Check TSH (2) Acute systolic (congestive) heart failure: Plan: Several weeks of progressive orthopnea/dyspnea/LE edema, hypervolemic on exam, CXR with cardiomegaly, BNP 4963. Suspect acute CHF in context of uncontrolled a- fib. - TTE shows severely reduced EF 15% -Continue IV Lasix today as ordered by cardiology -Follow BMP and magnesium and replete -Add on low-sodium diet, fluid restrict 1500 mL/day Daily weights -Could be from tachyarrhythmia. He has no previous anginal symptoms and was quite active prior to the last few weeks so seems unlikely to be ischemic in nature although troponin is mildly elevated -Checking TSH -Rate and rhythm control as above and will need to reassess echocardiogram in 1 to 2 months (3) Transaminitis: Plan: Per [facility] records from outpatient, patient's LFTs were normal one week ago. Now AST 101 and ALT 94. Suspect hepatic congestion in setting of acute CHF, however he does have evidence of cirrhosis on right upper quadrant ultrasound liver Admits to significant alcohol use - RUQ US with cirrhosis noted but no blockage, there is a suggested adenomyomatosis of the gallbladder and a 9 mm indeterminate hypoechoic lesion of the right liver lobe which will need to be followed - trend LFTs in the AM -Hopefully diuresis will help with this -Counseled to abstain from alcohol -AWSS in case of alcohol withdrawal scale ordered in case of withdrawal -Add on thiamine and folic acid p.o. (4) Hypertension: Plan: Blood pressures are low normal at times Holding home lisinopril while titrating beta-cristopher Continue metoprolol 25 mg 4 times daily as above for rate control -Diuresing with IV Lasix (5) Dyslipidemia: Plan: Continue fenofibrate (6) Cirrhosis: Plan: As noted above We will need outpatient follow-up with GI Cessation from all alcohol is recommended (7) Elevated troponin: Plan: Elevated Troponin No chest pain and EKG with ST/T changes but Troponin elevated at 0.048 and was in rapid atrial fibrillation. Suspect demand ischemia in setting of a-fib with RVR and acute CHF. Troponin stable at 0.06x3 - SL Nitro PRN for chest pain - EKG PRN for chest pain At some point may need ischemic evaluation (8) Hyponatremia: Plan: Hyponatremia-stable today but remains mildly low at 130 Likely due to hypervolemia. Diuresing with Lasix - trend BMP daily (9) Gout: Plan: No ongoing issues Recommend alcohol cessation (10) DVT prophylaxis: Plan: Eliquis Disposition-continued stay in PCU Admission and Anticipated Discharge Date Admission Date: January 14, 2021 Subjective Patient reports feeling fairly well. He says his weight and swelling are down significantly from previous. He denies shortness of breath at rest. Denies chest pain ever. 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 He is very surprised to hear all of the findings about what is going on with his heart and his liver. He does have a trip to [place] next week that he was looking forward to and is still hoping to go to, but knows that he should not drink any alcohol. Telemetry remains with rapid atrial fibrillation with rates in the 120s to 170s at times. I discussed his care with cardiology on multiple occasions today. Patient denies any history of bleeding except for occasional minor hemorrhoid bleeding. Denies hematuria or history of peptic ulcer disease or bleeding of any kind otherwise. Review of Systems Review of Systems: All systems reviewed & are unremarkable except as noted in HPI & below Physical Exam Constitutional: WD/WN, vitals as above Eyes: + anicteric sclerae Neck: trachea midline, no thyromegaly Respiratory: normal respiratory effort, lungs clear to auscultation Cardiovascular: Rate/Rhythm: + tachycardic and + irregularly irregular Heart Sounds: no murmur Extremities: + edema (2+ pitting edema to the knees right greater than left legs) Chest (Breasts): Chest: normal inspection of chest Gastrointestinal (Abdomen): normal bowel sounds, soft, nontender, no hepatosplenomegaly Musculoskeletal: Extremities: extremities normal to inspection; no cyanosis and no clubbing Skin: no rashes, warm and dry Neurologic: moves all extremities and awake; no focal motor deficits Psychiatric: A+Ox3, euthymic affect Lymphatic: no lymphedema Results & Data Results & Data ([facility]) Vital Signs (Past 12 Hours) Vital Signs Temp Pulse Pulse Resp BP BP Pulse Ox 01/15/21 10:04 156 H 105/58 L 01/15/21 09:24 149 H 01/15/21 08:03 36.5 C 126 H 16 111/76 100 01/15/21 06:00 116/74 01/15/21 03:30 36.5 C 131 H 18 98/78 L 97 01/15/21 01:39 92/65 L Laboratory Results 01/15/21 01/15/21 01/15/21 Range/Units 08:31 08:31 01:51 WBC (4.8-10.8) K/uL RBC (4.7-6.1) M/uL Hgb (14.0-18.0) g/dL Hct (42-52) % MCV (80-100) fL MCH (25-34) pg MCHC (32-36) g/dL RDW Std Deviation (36.4-46.3) fL RDW Coeff of Racheal (11.5-14.5) % Plt Count (130-400) K/uL MPV (7.4-10.4) fL Immature Gran % (Auto) % Neut % (Auto) % Lymph % (Auto) % [place] % (Auto) % Eos % (Auto) % Baso % (Auto) % Neut # (Auto) (1.4-6.5) K/uL Lymph # (Auto) (1.2-3.4) K/uL [place] # (Auto) (0.11-0.59) K/uL Eos # (Auto) (0-0.5) K/uL Baso # (Auto) (0-0.2) K/uL Immature Gran # (Auto) (0.00-0.02) K/uL PT 12.3 H (9.0-12.0) Seconds INR 1.2 H (0.9-1.1) APTT 102.5 H* 81.4 H* (21.0-31.0) Seconds PTT Ratio 3.9 3.1 Sodium (136-145) mmol/L Potassium (3.5-5.1) mmol/L Chloride (98-107) mmol/L Carbon Dioxide (21-32) mmol/L Anion Gap (3-11) BUN (7-18) mg/dl Creatinine (0.6-1.4) mg/dl Est Cr Clr Drug Dosing ml/min Est GFR ( Amer) ml/min Est GFR (Non-Af Amer) ml/min BUN/Creatinine Ratio (10-20) Glucose (70-99) mg/dl Calcium (8.5-10.1) mg/dl Total Bilirubin (0.2-1) mg/dl AST (15-37) U/L ALT (12-78) U/L Alkaline Phosphatase (45-117) U/L Total Creatine Kinase (39-308) U/L CK-MB (CK-2) (0.5-3.6) ng/ml CK/CKMB % Calc (0-3.0) Troponin I 0.044 (0-0.045) ng/ml NT-Pro-B Natriuret Pep (0-900) pg/ml Total Protein (6.4-8.2) gm/dl Albumin (3.4-5.0) gm/dl Globulin (2.5-4.0) gm/dl Albumin/Globulin Ratio (0.9-2) COVID-19 Eval Order SARS-CoV-2 (PCR) (Negative) 01/15/21 01/15/21 01/14/21 Range/Units 01:51 01:51 20:52 WBC 11.16 H (4.8-10.8) K/uL RBC 4.44 L (4.7-6.1) M/uL Hgb 14.5 (14.0-18.0) g/dL Hct 42.5 (42-52) % MCV 95.7 (80-100) fL MCH 32.7 (25-34) pg MCHC 34.1 (32-36) g/dL RDW Std Deviation 48.3 H (36.4-46.3) fL RDW Coeff of Racheal 13.8 (11.5-14.5) % Plt Count 231 (130-400) K/uL MPV 12.6 H (7.4-10.4) fL Immature Gran % (Auto) 0.8 % Neut % (Auto) 71.3 % Lymph % (Auto) 20.9 % [place] % (Auto) 6.8 % Eos % (Auto) 0.2 % Baso % (Auto) 0.0 % Neut # (Auto) 7.96 H (1.4-6.5) K/uL Lymph # (Auto) 2.33 (1.2-3.4) K/uL [place] # (Auto) 0.76 H (0.11-0.59) K/uL Eos # (Auto) 0.02 (0-0.5) K/uL Baso # (Auto) 0.00 (0-0.2) K/uL Immature Gran # (Auto) 0.09 H (0.00-0.02) K/uL PT (9.0-12.0) Seconds INR (0.9-1.1) APTT 50.3 H* (21.0-31.0) Seconds PTT Ratio 1.9 Sodium 130 L (136-145) mmol/L Potassium 4.1 (3.5-5.1) mmol/L Chloride 103 (98-107) mmol/L Carbon Dioxide 22 (21-32) mmol/L Anion Gap 5.0 (3-11) BUN 28 H (7-18) mg/dl Creatinine 1.18 (0.6-1.4) mg/dl Est Cr Clr Drug Dosing 74.7 ml/min Est GFR ( Amer) 73.1 ml/min Est GFR (Non-Af Amer) 63.0 ml/min BUN/Creatinine Ratio 23.9 H (10-20) Glucose 122 H (70-99) mg/dl Calcium 8.3 L (8.5-10.1) mg/dl Total Bilirubin 1.2 H (0.2-1) mg/dl AST 87 H (15-37) U/L ALT 94 H (12-78) U/L Alkaline Phosphatase 34 L (45-117) U/L Total Creatine Kinase (39-308) U/L CK-MB (CK-2) (0.5-3.6) ng/ml CK/CKMB % Calc (0-3.0) Troponin I 0.060 H* (0-0.045) ng/ml NT-Pro-B Natriuret Pep (0-900) pg/ml Total Protein 5.5 L (6.4-8.2) gm/dl Albumin 3.2 L (3.4-5.0) gm/dl Globulin 2.3 L (2.5-4.0) gm/dl Albumin/Globulin Ratio 1.4 (0.9-2) COVID-19 Eval Order SARS-CoV-2 (PCR) (Negative) 01/14/21 01/14/21 01/14/21 Range/Units 19:47 13:56 13:56 WBC (4.8-10.8) K/uL RBC (4.7-6.1) M/uL Hgb (14.0-18.0) g/dL Hct (42-52) % MCV (80-100) fL MCH (25-34) pg MCHC (32-36) g/dL RDW Std Deviation (36.4-46.3) fL RDW Coeff of Racheal (11.5-14.5) % Plt Count (130-400) K/uL MPV (7.4-10.4) fL Immature Gran % (Auto) % Neut % (Auto) % Lymph % (Auto) % [place] % (Auto) % Eos % (Auto) % Baso % (Auto) % Neut # (Auto) (1.4-6.5) K/uL Lymph # (Auto) (1.2-3.4) K/uL [place] # (Auto) (0.11-0.59) K/uL Eos # (Auto) (0-0.5) K/uL Baso # (Auto) (0-0.2) K/uL Immature Gran # (Auto) (0.00-0.02) K/uL PT (9.0-12.0) Seconds INR (0.9-1.1) APTT (21.0-31.0) Seconds PTT Ratio Sodium (136-145) mmol/L Potassium (3.5-5.1) mmol/L Chloride (98-107) mmol/L Carbon Dioxide (21-32) mmol/L Anion Gap (3-11) BUN (7-18) mg/dl Creatinine (0.6-1.4) mg/dl Est Cr Clr Drug Dosing ml/min Est GFR ( Amer) ml/min Est GFR (Non-Af Amer) ml/min BUN/Creatinine Ratio (10-20) Glucose (70-99) mg/dl Calcium (8.5-10.1) mg/dl Total Bilirubin (0.2-1) mg/dl AST (15-37) U/L ALT (12-78) U/L Alkaline Phosphatase (45-117) U/L Total Creatine Kinase (39-308) U/L CK-MB (CK-2) (0.5-3.6) ng/ml CK/CKMB % Calc (0-3.0) Troponin I 0.065 H* (0-0.045) ng/ml NT-Pro-B Natriuret Pep (0-900) pg/ml Total Protein (6.4-8.2) gm/dl Albumin (3.4-5.0) gm/dl Globulin (2.5-4.0) gm/dl Albumin/Globulin Ratio (0.9-2) COVID-19 Eval Order Covid19 at [facility] SARS-CoV-2 (PCR) NEGATIVE (Negative) 01/14/21 01/14/21 01/14/21 Range/Units 13:13 13:13 13:13 WBC 11.40 H (4.8-10.8) K/uL RBC 4.66 L (4.7-6.1) M/uL Hgb 15.1 (14.0-18.0) g/dL Hct 45.2 (42-52) % MCV 97.0 (80-100) fL MCH 32.4 (25-34) pg MCHC 33.4 (32-36) g/dL RDW Std Deviation 49.3 H (36.4-46.3) fL RDW Coeff of Racheal 13.9 (11.5-14.5) % Plt Count 274 (130-400) K/uL MPV 12.5 H (7.4-10.4) fL Immature Gran % (Auto) 0.5 % Neut % (Auto) 70.3 % Lymph % (Auto) 22.1 % [place] % (Auto) 7.0 % Eos % (Auto) 0.0 % Baso % (Auto) 0.1 % Neut # (Auto) 8.01 H (1.4-6.5) K/uL Lymph # (Auto) 2.52 (1.2-3.4) K/uL [place] # (Auto) 0.80 H (0.11-0.59) K/uL Eos # (Auto) 0.00 (0-0.5) K/uL Baso # (Auto) 0.01 (0-0.2) K/uL Immature Gran # (Auto) 0.06 H (0.00-0.02) K/uL PT 11.3 (9.0-12.0) Seconds INR 1.1 (0.9-1.1) APTT 25.2 (21.0-31.0) Seconds PTT Ratio 1.0 Sodium 129 L (136-145) mmol/L Potassium 4.3 (3.5-5.1) mmol/L Chloride 102 (98-107) mmol/L Carbon Dioxide 24 (21-32) mmol/L Anion Gap 3.0 (3-11) BUN 23 H (7-18) mg/dl Creatinine 1.13 (0.6-1.4) mg/dl Est Cr Clr Drug Dosing 78.2 ml/min Est GFR ( Amer) 77.0 ml/min Est GFR (Non-Af Amer) 66.4 ml/min BUN/Creatinine Ratio 20.4 H (10-20) Glucose 103 H (70-99) mg/dl Calcium 8.8 (8.5-10.1) mg/dl Total Bilirubin 1.0 (0.2-1) mg/dl AST 101 H (15-37) U/L ALT 94 H (12-78) U/L Alkaline Phosphatase 50 (45-117) U/L Total Creatine Kinase 100 (39-308) U/L CK-MB (CK-2) 4.1 H (0.5-3.6) ng/ml CK/CKMB % Calc 4.1 H (0-3.0) Troponin I 0.048 H* (0-0.045) ng/ml NT-Pro-B Natriuret Pep 4963 H (0-900) pg/ml Total Protein 6.2 L (6.4-8.2) gm/dl Albumin 3.7 (3.4-5.0) gm/dl Globulin 2.5 (2.5-4.0) gm/dl Albumin/Globulin Ratio 1.5 (0.9-2) COVID-19 Eval Order SARS-CoV-2 (PCR) (Negative) PG Care Time/CCT Total # of Minutes Spent Total Time Spent with Patient: Total time spent is greater than 50% in coordination of care (as documented) at patient's floor/unit and/or counseling patient: Coding Level of Care Code 00913 Subseq Hosp Care Lvl 3 Diagnoses Atrial fibrillation with rapid ventricular response I48.91 Transaminitis R74.01 Hypertension I10 Dyslipidemia E78.5 Gout M10.9 Acute systolic (congestive) heart failure I50.21 DVT prophylaxis Z29.9 Cirrhosis K74.60 Elevated troponin R77.8 Hyponatremia E87.1
[2021-01-15] MEDS: THIAMINE HCL 100 MG TAB PO SCH (13:31)
[2021-01-15] MEDS: FOLIC ACID 1 MG TAB PO SCH (13:31)
[2021-01-15] MEDS ORDERED: DIGOXIN 250 MCG in SYRINGE 9 ML IV SCH (16:00)
[2021-01-15] MEDS ORDERED: POTASSIUM CHLORIDE CRTAB 20 MEQ TABCR PO ONE (17:00)
[2021-01-15] MEDS: FUROSEMIDE 40 MG in SYRINGE 1 ML IV SCH (17:06)
--- NOTE | 2021-01-15 17:33 | Cardiology Consultation ---
Date of Consultation January 15, 2021 Assessment & Plan (1) Atrial fibrillation with rapid ventricular response: The duration of his atrial fibrillation is unclear. I suspect this is been fairly longstanding in nature. He is generally not aware of the palpitations. He is not accustomed to taking his heart rate or pulse. In fact, after the diagnosis he did buy a pulse oximeter which continued to give him erroneously readings. He is more symptomatic from the associated edema and exercise intolerance likely due to reduced LV function and high ventricular rates. Attempts at rate control have been initiated, but have not been very successful. I think he would benefit from return to sinus rhythm both for improved symptoms and the likelihood of improving his LV function. However, given his decompensated state and cardiomyopathy the chance of maintaining sinus rhythm without antiarrhythmic medications seems small. Therefore, I think we should initiate antiarrhythmic therapy. In most circumstances we would initiate amiodarone at least in the short term in order to affect a period of sinus rhythm. However, given his known liver disease we will try sotalol as an alternative. As he has not been adequately anticoagulated and there is a small chance of conversion with antiarrhythmic therapy our plan is for a transesophageal echocardiogram tomorrow. This will be followed by sotalol initiation and plans for cardioversion in 2 days. (2) Cardiomyopathy: Patient does have a fairly extensive history of heavy alcohol use. 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 Is next assignment reportedly will be working at a [employer] in [place]. I think there is reasonable chance however that his cardiomyopathy is simply tachycardia mediated. I suspect he has had high ventricular rates for several weeks at least. His progressive exercise intolerance was likely related to failing LV function and persistently high ventricular rates. Hopefully with a return to sinus rhythm in a period of controlled heart rates we will see improvement in his LV function. History of Present Illness Reason for Consultation: Atrial fibrillation Requesting Physician: Jazmin Attending Physician: Joy Cowan MD History of Present Illness The patient is a 62-year-old gentleman recently diagnosed with atrial fibrillation and admitted to the hospital for evidence of congestive heart failu re and atrial fibrillation with high ventricular rates. Seems that over the past couple of months the patient has had an element of progressive exercise intolerance. He did not describe overt dyspnea and in fact was fairly adamant that shortness of breath was not 1 of his recent symptoms. 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 He also noticed an element of edema which she characterized as initially mild but progressive to involve more notable lower extremity swelling. He did not report orthopnea or paroxysmal nocturnal dyspnea. He has not had symptoms of chest discomfort. He has not been aware of palpitations and generally was not aware of elevated heart rates into the presented to his primary care physician's office for routine evaluation which had previously been scheduled. He was noted to have elevated heart rates at that time. Atrial fibrillation was confirmed and he was started on metoprolol and Eliquis. The patient was referred to Cardiology and presented with persistent symptoms and elevated heart rates prompting hospital evaluation. Allergies Allergy/AdvReac Type Severity Reaction Status Date / Time No Known Allergies Allergy Unverified 01/14/21 14:14 Home Medications Medication Instructions Recorded Confirmed Type apixaban 5 mg tablet (Eliquis) 5 mg PO BID 01/14/21 01/14/21 History fenofibrate nanocrystallized 145 145 mg PO DAILY 01/14/21 01/14/21 History mg tablet prednisone 10 mg tablet 10 mg PO DAILY PRN 01/14/21 01/14/21 History furosemide 20 mg tablet 20 mg PO QAM PRN #30 tab 01/21/21 Rx sotalol 160 mg tablet 160 mg PO BID #60 tab 01/21/21 Rx Patient History Medical History Acute systolic (congestive) heart failure EF 15% Atrial fibrillation with rapid ventricular response Cirrhosis Dyslipidemia Gout Hypertension Mitral regurgitation Surgical History History of transesophageal echocardiography (PAWAN) Social History Smoking Status: Never smoker Hx Alcohol Use: Yes Alcohol type: wine Hx Substance Use: No Preferred Language: Polish Communication Ability: Effective Science Instructor Required: No Beliefs That Will Affect Care: None Current Living Situation: Alone Feels Safe at Home: Yes Assistive Devices: None Review of Systems Review of Systems: All systems reviewed & are unremarkable except as noted in HPI & below Physical Exam Physical Exam: The patient is alert and oriented. Mood and affect appeared normal. He answered all questions appropriately. HEENT: Pupils are equal and reactive to light and accommodation. Extraocular movements are intact. The sclerae are anicteric. Neuro: Cranial nerves intact Neck: Patient's neck is supple. Lungs: Clear to auscultation bilaterally. He has good air movement without use of accessory muscles. No rales wheezes or rhonchi. Cardiac: Irregular rhythm with elevated heart rate. Normal S1 and S2. Holosystolic murmur of variable intensity Pulses: The patient has palpable radial pulses bilaterally that are equal in intensity Extremities: There was no evidence of hypoperfusion. There is no cyanosis or clubbing. Mild to moderate lower extremity edema Skin: I did not appreciate any rashes on examination today. Results & Data ([facility]) Vital Signs (Past 12 Hours) Vital Signs Temp Pulse Pulse Pulse Resp BP BP 01/15/21 16:44 134 H 01/15/21 15:52 36.6 C 66 20 115/82 01/15/21 12:16 150 H 01/15/21 11:56 36.5 C 93 H 19 107/72 01/15/21 10:04 156 H 105/58 L 01/15/21 09:24 149 H 01/15/21 08:03 36.5 C 126 H 16 111/76 01/15/21 06:00 116/74 Pulse Ox 01/15/21 16:44 01/15/21 15:52 96 01/15/21 12:16 01/15/21 11:56 98 01/15/21 10:04 01/15/21 09:24 01/15/21 08:03 100 01/15/21 06:00 Laboratory Results Abnormal Lab Results 01/14/21 01/14/21 01/15/21 19:47 20:52 01:51 WBC RBC Hgb Hct MCV MCH MCHC RDW Std Deviation RDW Coeff of Racheal Plt Count MPV Immature Gran % (Auto) Neut % (Auto) Lymph % (Auto) [place] % (Auto) Eos % (Auto) Baso % (Auto) Neut # (Auto) Lymph # (Auto) [place] # (Auto) Eos # (Auto) Baso # (Auto) Immature Gran # (Auto) PT INR APTT 50.3 H* PTT Ratio 1.9 Sodium 130 L Potassium 4.1 Chloride 103 Carbon Dioxide 22 Anion Gap 5.0 BUN 28 H Creatinine 1.18 Est Cr Clr Drug Dosing 74.7 Est GFR ( Amer) 73.1 Est GFR (Non-Af Amer) 63.0 BUN/Creatinine Ratio 23.9 H Glucose 122 H Calcium 8.3 L Total Bilirubin 1.2 H AST 87 H ALT 94 H Alkaline Phosphatase 34 L Troponin I 0.065 H* 0.060 H* Total Protein 5.5 L Albumin 3.2 L Globulin 2.3 L Albumin/Globulin Ratio 1.4 [facility] 01/15/21 01/15/21 01/15/21 01:51 01:51 08:31 WBC 11.16 H RBC 4.44 L Hgb 14.5 Hct 42.5 MCV 95.7 MCH 32.7 MCHC 34.1 RDW Std Deviation 48.3 H RDW Coeff of Racheal 13.8 Plt Count 231 MPV 12.6 H Immature Gran % (Auto) 0.8 Neut % (Auto) 71.3 Lymph % (Auto) 20.9 [place] % (Auto) 6.8 Eos % (Auto) 0.2 Baso % (Auto) 0.0 Neut # (Auto) 7.96 H Lymph # (Auto) 2.33 [place] # (Auto) 0.76 H Eos # (Auto) 0.02 Baso # (Auto) 0.00 Immature Gran # (Auto) 0.09 H PT 12.3 H INR 1.2 H APTT 81.4 H* PTT Ratio 3.1 Sodium Potassium Chloride Carbon Dioxide Anion Gap BUN Creatinine Est Cr Clr Drug Dosing Est GFR ( Amer) Est GFR (Non-Af Amer) BUN/Creatinine Ratio Glucose Calcium Total Bilirubin AST ALT Alkaline Phosphatase Troponin I 0.044 Total Protein Albumin Globulin Albumin/Globulin Ratio [facility] 01/15/21 01/15/21 08:31 08:36 WBC RBC Hgb Hct MCV MCH MCHC RDW Std Deviation RDW Coeff of Racheal Plt Count MPV Immature Gran % (Auto) Neut % (Auto) Lymph % (Auto) [place] % (Auto) Eos % (Auto) Baso % (Auto) Neut # (Auto) Lymph # (Auto) [place] # (Auto) Eos # (Auto) Baso # (Auto) Immature Gran # (Auto) PT INR APTT 102.5 H* PTT Ratio 3.9 Sodium Potassium Chloride Carbon Dioxide Anion Gap BUN Creatinine Est Cr Clr Drug Dosing Est GFR ( Amer) Est GFR (Non-Af Amer) BUN/Creatinine Ratio Glucose Calcium Total Bilirubin AST ALT Alkaline Phosphatase Troponin I Total Protein Albumin Globulin Albumin/Globulin Ratio TSH 1.490 Diagnostic Findings Echocardiogram demonstrated severely reduced LV systolic function with severe global hypokinesis and ventricular dilation. There was biatrial dilation. Moderate mitral regurgitation. Abdominal ultrasound suggestive of cirrhosis ECG Additional Comments: EKG obtained the time admission revealed atrial fibrillation, rapid ventricular response and nonspecific ST and T-wave changes, T-wave inversions in the lateral precordial leads. PG Care Time/CCT Total # of Minutes Spent Total Time Spent with Patient: Total time spent is greater than 50% in coordination of care (as documented) at patient's floor/unit and/or counseling patient: Coding Level of Care Code 61862 Initial Inpt Care Lvl 3 Diagnoses Atrial fibrillation with rapid ventricular response I48.91 Cardiomyopathy I42.9
[2021-01-15] MEDS: METOPROLOL TARTRATE 25 MG TAB PO PRN (18:11)
[2021-01-15] MEDS: FENOFIBRATE NANOCRYSTALLIZED 145 MG TABLET PO SCH (20:43)
[2021-01-16] MEDS: METOPROLOL TARTRATE 25 MG TAB PO SCH ×4 (01:34→18:28)
[2021-01-16] MEDS: DIGOXIN 250 MCG in SYRINGE 9 ML IV SCH (02:21)
[2021-01-16] MEDS: APIXABAN 2.5 MG TAB PO SCH (07:40)
[2021-01-16] MEDS: FOLIC ACID 1 MG TAB PO SCH (07:41)
[2021-01-16] MEDS: THIAMINE HCL 100 MG TAB PO SCH (07:41)
[2021-01-16] MEDS: FUROSEMIDE 40 MG in SYRINGE 1 ML IV SCH ×2 (07:42→16:28)
[2021-01-16 08:47] LABS: Basophils # (auto) 0.01 K/uL (0-0.2); Basophils % (auto) 0.1 %; Eosinophils # (auto) 0.06 K/uL (0-0.5); Eosinophils % (auto) 0.7 %; Hematocrit (blood only) 43.8 % (42-52); Hemoglobin 14.8 g/dL (14.0-18.0); Immature Granulocytes # (auto) 0.04 K/uL (0.00-0.02); Immature Granulocytes % (auto) 0.5 %; Lymphocytes # (auto) 2.24 K/uL (1.2-3.4); Lymphocytes % (auto) 27.3 %; Mean Corpuscular Hemoglobin 32.6 pg (25-34); Mean Corpuscular Hgb Conc 33.8 g/dL (32-36); Mean Corpuscular Volume 96.5 fL (80-100); Mean Platelet Volume 12.5 fL (7.4-10.4); Monocytes # (auto) 0.83 K/uL (0.11-0.59); Monocytes % (auto) 10.1 %; Neutrophils # (auto) 5.02 K/uL (1.4-6.5); Neutrophils % (auto) 61.3 %; Platelet Count 227 K/uL (130-400); RDW Coefficient of Variation 13.8 % (11.5-14.5); RDW Standard Deviation 48.6 fL (36.4-46.3); Red Blood Count 4.54 M/uL (4.7-6.1)
--- NOTE | 2021-01-16 09:18 | Cardiology Progress Note ---
Date of Service January 16, 2021 Assessment & Plan Admission and Anticipated Discharge Date Admission Date: January 14, 2021 Subjective He is feeling better this morning. His lower extremity edema has is markedly improved his abdominal distention has improved as well his appetite is improved. He notes in retrospect he has had early satiety and fatigue and shortness of breath with activity for at least a month. He denies any lightheadedness or dizziness this morning. He denies a cough fevers chills or sweats. Denies any chest discomfort or chest pressure. He is unaware of any palpitations or fluttering. Results & Data ([facility]) Vital Signs (Past 12 Hours) Vital Signs Temp Pulse Pulse Resp BP Pulse Ox 01/16/21 07:21 36.7 C 84 20 132/75 97 01/16/21 03:50 36.9 C 132 H 18 127/78 99 01/16/21 01:33 131 H 95/56 L 01/16/21 00:00 135 H 01/15/21 23:15 37 C 133 H 16 97/68 L 93 he is awake alert and oriented x3 is in no acute distress HEENT severely reduced carotid upstrokes no evidence of carotid bruits Lungs: Clear to auscultation bilaterally no rales rhonchi or wheezing Heart: Irregular rate and rhythm no appreciable murmurs or rubs Abdomen: Soft mildly distended positive bowel sounds nontender Extremities: Mild bilateral lower extremity edema Psychiatric: His affect appeared appropriate IMPRESSIONS: 1. Acute systolic heart failure 2. Severe nonischemic cardiomyopathy either secondary to atrial fibrillation with a rapid ventricular response for an extended period of time or secondary to extensive alcohol consumption 3. Severe LV dysfunction with an EF less than 15% 4. Significant alcohol consumption with a new diagnosis of cirrhosis and elevated LFTs 5. Atrial fibrillation with a rapid ventricular response currently anticoagulated with apixaban 6. Moderate mitral regurgitation 7. Hyponatremia which appears chronic I appreciate Dr. Stewart's input. He and I discussed the case in detail. The plan will be transesophageal echocardiography today then sotalol loading given the fact we cannot use amiodarone with his newly diagnosed liver disease. Once sotalol loaded he then could be cardioverted. The hope is that this is just a tachycardia induced cardiomyopathy and with sikhism of sinus rhythm his LV function will improve with appropriate heart failure therapy. Unfortunately there is the possibility that he has alcohol induced cardiomyopathy and this may not significantly improved. He has moderate mitral regurgitation likely on the basis of LV annular dilation. I would continue with his diuretics. His BMP is pending this morning he has lost a fair amount of weight and we can adjust his diuretics according to his renal function. He is currently anticoagulated and tolerating it. I would stop his fenofibrate given the potential liver toxicity associated with it. The question with his hyponatremia is this related just to chronic alcohol use and/or heart failure. We did discuss a low-salt diet and daily weights with regards to heart failure we also discussed that all of his symptoms he was complaining about before he came to the hospital are consistent with heart failure symptoms. Ultimately he may need fluid restriction to help his sodium in addition to abstaining from all alcohol.
[2021-01-16 09:25] LABS: Albumin Globulin Ratio 1.4 (0.9-2); Albumin Level 3.3 gm/dl (3.4-5.0); BUN Creatinine Ratio 21.7 (10-20); Bilirubin,Total 0.7 mg/dl (0.2-1); Calcium 8.5 mg/dl (8.5-10.1); Creatinine Clr Calc Pharmacy 67.9 ml/min; Est GFR (African American) 67.5 ml/min; Est GFR (Non-African American) 58.2 ml/min; Globulin 2.4 gm/dl (2.5-4.0); Magnesium 1.7 mg/dl (1.8-2.4); Phosphorus 3.2 mg/dl (2.5-4.9); Potassium 3.6 mmol/L (3.5-5.1); Total Protein 5.7 gm/dl (6.4-8.2)
[2021-01-16] MEDS: METOPROLOL TARTRATE 25 MG TAB PO PRN (10:25)
[2021-01-16] MEDS ORDERED: fentaNYL citrate 100 MCG/2 ML VIAL ONE (11:28)
[2021-01-16] MEDS ORDERED: PHENYLEPHRINE HCL 10 MG/ML VIAL ONE (11:28)
[2021-01-16] MEDS ORDERED: PROPOFOL IV EMULSION 10 MG/ML 20 ML VIAL IV ONE (11:28)
[2021-01-16] MEDS ORDERED: LIDOCAINE 2% 2 ML VIAL/AMP(20MG/ML) INFIL ONE (11:28)
[2021-01-16] MEDS ORDERED: BENZOCAIN/TETRACA/BUTAM SPRAY 200 APPLN/20 GM SPRY EXT ONE ×2 (12:04→12:05)
[2021-01-16] MEDS ORDERED: POTASSIUM CHLORIDE CRTAB 20 MEQ TABCR PO STA ×2 (12:13→17:48)
--- NOTE | 2021-01-16 12:28 | Anesthesiology Consultation ---
Date of Service January 16, 2021 Assessment & Plan Chart Review Chart Review: Acceptable Risk for Surgery and Patient NOT seen in Pre Admission Testing Consults Requested none ASA ASA4 Proposed Anesthesia Anesthesia Type: MAC Risk / Benefits Reviewed With: PT / POA / Parent / Guardian, Accepts Plan and Informed Consent Obtained History Surgery Operation Date: 01/16/21 12:00 Proposed Procedures p Transesophageal Echo w/Anesthesia - Soto Stewrat MD Height/Weight Height: 6 ft Weight: 97.4 kg Allergies Allergy/AdvReac Type Severity Reaction Status Date / Time No Known Allergies Allergy Unverified 01/14/21 14:14 Medications Home Medications Medication Instructions Recorded Confirmed Last Taken apixaban 5 mg tablet (Eliquis) 5 mg PO BID 01/14/21 01/14/21 Unknown fenofibrate nanocrystallized 145 145 mg PO DAILY 01/14/21 01/14/21 Unknown mg tablet lisinopril 40 mg tablet 40 mg PO DAILY 01/14/21 01/14/21 Unknown metoprolol tartrate 25 mg tablet 25 mg PO TID 01/14/21 01/14/21 01/14/21 prednisone 10 mg tablet 10 mg PO DAILY PRN 01/14/21 01/14/21 Unknown Active Medications Generic Name Dose Route Start Last Admin Trade Name Freq PRN Reason Stop Dose Admin Folic Acid 1 mg 01/15/21 12:30 01/16/21 07:41 Folic Acid 1 Mg Tab PO 02/14/21 12:29 1 mg QAM TERRY Administration Furosemide 40 mg/ Syringe 5 mls @ 4 mls/min 01/15/21 17:00 01/16/21 07:42 IV 02/14/21 16:59 4 mls/min [id number] TERRY Administration Metoprolol Tartrate 25 mg 01/14/21 19:30 01/16/21 06:30 Metoprolol Tartrate 25 Mg Tab PO 02/13/21 19:29 25 mg Q6H TERRY Administration Metoprolol Tartrate 25 mg 01/14/21 19:29 01/16/21 10:25 Metoprolol Tartrate 25 Mg Tab PO 02/13/21 19:29 25 mg Q6H PRN Administration HR >140 Thiamine HCl 100 mg 01/15/21 12:30 01/16/21 07:41 Thiamine Hcl 100 Mg Tab PO 02/14/21 12:29 100 mg QAM TERRY Administration NPO Date Last Intake of Fluids: 01/15/21 Time Last Intake of Fluids: 20:00 Date Last Intake of Solids: 01/15/21 Time Last Intake of Solids: 20:00 Past Medical History Medical History (Updated 01/15/21 @ 17:29 by Soto Stewart MD) Acute systolic (congestive) heart failure Atrial fibrillation with rapid ventricular response Cirrhosis Dyslipidemia Gout Hypertension Exercise / Class Metabolic Activity III < 4 Walking/Shop/Light housework Past Anesthesia History No Hx of Anesthesia Complications and No Family Hx of Anesthesia Complications History of PONV No Hx of PONV and No Hx of Motion Sickness Social History Smoking Status: Never smoker Hx Alcohol Use: Yes Alcohol type: wine alcohol intake frequency: 0-2 drinks per day Hx Substance Use: No Physical Exam Vital Signs Last Vital Signs Temp 37.3 C 01/16/21 11:20 Pulse 53 L 01/16/21 11:20 Resp 18 01/16/21 11:20 BP 121/75 01/16/21 11:20 Pulse Ox 99 01/16/21 11:20 ENMT Mouth: no dentition abnormality Thyromental Distance: > or= 3.5 Finger Breadths Mallampati Class: II Neck normal visual inspection Respiratory normal respiratory effort Auscultation: lungs clear to auscultation bilaterally Cardiovascular Rate/Rhythm: + tachycardic; + abnormal rhythm Extremities: + edema (1-2) Psychiatric Orientation: alert Testing Laboratory Results 01/16/21 08:03 01/16/21 08:03 PT 12.3 Seconds (9.0-12.0) H 01/15/21 01:51 INR 1.2 (0.9-1.1) H 01/15/21 01:51 APTT 102.5 Seconds (21.0-31.0) H* 01/15/21 08:31
--- NOTE | 2021-01-16 12:32 | Anesthesiology Progress Note ---
Date of Service January 16, 2021 Anesthesia Post Procedure Vital Signs Vital Signs: Temp Pulse Pulse Pulse Resp BP BP 01/16/21 12:20 115 H 16 109/68 01/16/21 11:20 37.3 C 53 L 18 121/75 01/16/21 10:27 156 H 112/83 01/16/21 07:21 36.7 C 84 20 132/75 01/16/21 07:06 122 H 01/16/21 03:50 36.9 C 132 H 18 127/78 01/16/21 01:33 131 H 95/56 L 01/16/21 00:00 135 H 01/15/21 23:15 37 C 133 H 16 97/68 L 01/15/21 19:59 36.7 C 92 H 16 103/73 01/15/21 18:30 128/86 01/15/21 16:44 134 H 01/15/21 16:00 113/81 01/15/21 15:52 36.6 C 66 20 115/82 Pulse Ox 01/16/21 12:20 98 01/16/21 11:20 99 01/16/21 10:27 01/16/21 07:21 97 01/16/21 07:06 01/16/21 03:50 99 01/16/21 01:33 01/16/21 00:00 01/15/21 23:15 93 01/15/21 19:59 138 H 01/15/21 18:30 01/15/21 16:44 01/15/21 16:00 01/15/21 15:52 96 Transfer of Care Handoff Completed per policy Notes Mental Status: alert / awake / arousable Patient Amnestic to Procedure: Yes Nausea / Vomiting: adequately controlled Pain: adequately controlled Airway Patency, RR, SpO2: stable & adequate BP & HR: stable & adequate Hydration State: stable & adequate Anesthetic Complications: no major complications apparent
[2021-01-16] MEDS: MAGNESIUM SULFATE / D5W 1 GM/100 ML BAG IV SCH ×2 (13:18→15:23)
--- NOTE | 2021-01-16 14:37 | Hospitalist Progress Note ---
Date of Service January 16, 2021 Assessment & Plan (1) Atrial fibrillation with rapid ventricular response: Plan: Jorge A Recinos is a 70 yo male with PMHx significant for HTN and dyslipidemia who was is admitted to [facility] on 01/14 for new a-fib with RVR and associated hypervolemia. Atrial Fibrillation with Rapid Ventricular Response New diagnosis as of 01/11, but patient reports he has been feeling dyspneic on exertion for several weeks as well as development of lower extremity swelling in the last 2 weeks. Rates uncontrolled despite several doses of IV BBs and Mg. Suspect acute systolic CHF was brought on by this (see below). Rates continue to be rapid despite addition of p.o. metoprolol and electrolyte repletion Appreciate cardiology consultation Echocardiogram with severely reduced EF 15% With evidence of cirrhosis on imaging and elevated LFTs indicating chronic liver disease TSH normal Does have heavy alcohol use -Loaded with digoxin and will continue 0.125 mg once daily -PAWAN without thrombus on 01/16 -Plan for sotalol load starting this evening and DC cardioversion later this week - CHADS-VASc score of 2 - would recommend chronic fnmw-xrywpsyfgdi-vgthixdt Eliquis -Continue monitoring telemetry Continue to follow BMP magnesium and replace as needed -Discontinue metoprolol in the morning after starting sotalol (2) Acute systolic (congestive) heart failure: Plan: Several weeks of progressive orthopnea/dyspnea/LE edema, hypervolemic on exam, CXR with cardiomegaly, BNP 4963. Suspect acute CHF in context of uncontrolled a- fib. - TTE shows severely reduced EF 15% This may be tachyarrhythmia induced cardiomyopathy versus alcohol induced cardiomyopathy. No history of anginal symptoms so unlikely to be ischemic in nature although troponin mildly elevated TSH normal Diuresing well with IV Lasix, weight is down 6 kg and edema is improving -Continue IV Lasix 40 mg twice daily -Follow BMP and magnesium and replete-give 40 twice daily potassium chloride -Continue low-sodium diet, fluid restrict 1500 mL/day Daily weights -Rate and rhythm control as above and will need to reassess echocardiogram in 1 to 2 months (3) Transaminitis: Plan: Per [facility] records from outpatient, patient's LFTs were normal one week ago. Now AST 101 and ALT 94 upon admission. Suspect hepatic congestion in setting of acute CHF, however he does have evidence of cirrhosis on right upper quadrant ultrasound liver Admits to significant alcohol use - RUQ US with cirrhosis noted but no blockage, there is a suggested adenomyomatosis of the gallbladder and a 9 mm indeterminate hypoechoic lesion of the right liver lobe which will need to be followed LFTs trending downward today - trend LFTs in the AM -Hopefully diuresis will help with this -Counseled to abstain from alcohol -AWSS in case of alcohol withdrawal scale ordered in case of withdrawal -Continue on thiamine and folic acid p.o. -Discontinue fenofibrate (4) Hypertension: Plan: Blood pressures are low normal at times Holding home lisinopril while titrating beta-cristopher Discontinue metoprolol once sotalol starts -Diuresing with IV Lasix (5) Dyslipidemia: Plan: Discontinue fenofibrate to avoid further liver toxicity (6) Cirrhosis: Plan: As noted above Will need outpatient follow-up with GI Cessation from all alcohol is recommended (7) Elevated troponin: Plan: No chest pain and EKG with ST/T changes but Troponin elevated at 0.048 and was in rapid atrial fibrillation. Suspect demand ischemia in setting of a-fib with RVR and acute CHF. Troponin stable at 0.06x3 - SL Nitro PRN for chest pain - EKG PRN for chest pain At some point may need ischemic evaluation (8) Hyponatremia: Plan: Sodium 129 admission and now improved with diuresis to 136. Secondary to congestive heart failure and volume overload Continue diuresing with Lasix - trend BMP daily (9) Mitral regurgitation: Plan: Moderate on echocardiogram, could be secondary to LV dysfunction versus volume overload Continue diuresis (10) Gout: Plan: No ongoing issues Recommend alcohol cessation (11) DVT prophylaxis: Plan: Eliquis Disposition-continued stay in PCU Admission and Anticipated Discharge Date Admission Date: January 14, 2021 Subjective Patient reports feeling improved since admission and swelling in legs is down. He had his PAWAN this morning which showed no thrombus in the left atrial appendage. He denies chest pain or shortness of breath. 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 tach He is making plenty of urine I discussed his care with cardiology. Review of Systems Review of Systems: All systems reviewed & are unremarkable except as noted in HPI & below Physical Exam Constitutional: WD/WN, vitals as above Eyes: + anicteric sclerae Neck: trachea midline, no thyromegaly Respiratory: normal respiratory effort, lungs clear to auscultation Cardiovascular: Rate/Rhythm: + tachycardic and + irregularly irregular Heart Sounds: no murmur Extremities: + edema (1+ pitting edema to the knees right greater than left legs-improved) Chest (Breasts): Chest: normal inspection of chest Gastrointestinal (Abdomen): normal bowel sounds, soft, nontender, no hepatosplenomegaly Musculoskeletal: Extremities: extremities normal to inspection; no cyanosis a nd no clubbing Skin: no rashes, warm and dry Neurologic: moves all extremities and awake; no focal motor deficits Psychiatric: A+Ox3, euthymic affect Lymphatic: no lymphedema Results & Data Results & Data ([facility]) Vital Signs (Past 12 Hours) Vital Signs Temp Pulse Pulse Resp BP BP Pulse Ox 01/16/21 14:26 36.8 C 85 18 89/58 L 93 01/16/21 13:10 119 H 01/16/21 12:40 116 H 16 106/68 98 01/16/21 12:30 110 H 16 104/68 98 01/16/21 12:20 115 H 16 109/68 98 01/16/21 11:20 37.3 C 53 L 18 121/75 99 01/16/21 10:27 156 H 112/83 01/16/21 07:21 36.7 C 84 20 132/75 97 01/16/21 07:06 122 H 01/16/21 03:50 36.9 C 132 H 18 127/78 99 Laboratory Results 01/16/21 01/16/21 Range/Units 08:03 08:03 WBC 8.20 (4.8-10.8) K/uL RBC 4.54 L (4.7-6.1) M/uL Hgb 14.8 (14.0-18.0) g/dL Hct 43.8 (42-52) % MCV 96.5 (80-100) fL MCH 32.6 (25-34) pg MCHC 33.8 (32-36) g/dL RDW Std Deviation 48.6 H (36.4-46.3) fL RDW Coeff of Racheal 13.8 (11.5-14.5) % Plt Count 227 (130-400) K/uL MPV 12.5 H (7.4-10.4) fL Immature Gran % (Auto) 0.5 % Neut % (Auto) 61.3 % Lymph % (Auto) 27.3 % [place] % (Auto) 10.1 % Eos % (Auto) 0.7 % Baso % (Auto) 0.1 % Neut # (Auto) 5.02 (1.4-6.5) K/uL Lymph # (Auto) 2.24 (1.2-3.4) K/uL [place] # (Auto) 0.83 H (0.11-0.59) K/uL Eos # (Auto) 0.06 (0-0.5) K/uL Baso # (Auto) 0.01 (0-0.2) K/uL Immature Gran # (Auto) 0.04 H (0.00-0.02) K/uL Sodium 136 (136-145) mmol/L Potassium 3.6 (3.5-5.1) mmol/L Chloride 101 (98-107) mmol/L Carbon Dioxide 28 (21-32) mmol/L Anion Gap 7.0 (3-11) BUN 27 H (7-18) mg/dl Creatinine 1.26 (0.6-1.4) mg/dl Est Cr Clr Drug Dosing 67.9 ml/min Est GFR ( Amer) 67.5 ml/min Est GFR (Non-Af Amer) 58.2 ml/min BUN/Creatinine Ratio 21.7 H (10-20) Glucose 71 (70-99) mg/dl Calcium 8.5 (8.5-10.1) mg/dl Phosphorus 3.2 (2.5-4.9) mg/dl Magnesium 1.7 L (1.8-2.4) mg/dl Total Bilirubin 0.7 D (0.2-1) mg/dl AST 77 H (15-37) U/L ALT 103 H (12-78) U/L Alkaline Phosphatase 36 L (45-117) U/L Total Protein 5.7 L (6.4-8.2) gm/dl Albumin 3.3 L (3.4-5.0) gm/dl Globulin 2.4 L (2.5-4.0) gm/dl Albumin/Globulin Ratio 1.4 (0.9-2) PG Care Time/CCT Total # of Minutes Spent Total Time Spent with Patient: Total time spent is greater than 50% in coordination of care (as documented) at patient's floor/unit and/or counseling patient: Coding Level of Care Code 50787 Subseq Hosp Care Lvl 3 Diagnoses Atrial fibrillation with rapid ventricular response I48.91 Acute systolic (congestive) heart failure I50.21 Transaminitis R74.01 Hypertension I10 Dyslipidemia E78.5 Cirrhosis K74.60 Elevated troponin R77.8 Hyponatremia E87.1 Gout M10.9 DVT prophylaxis Z29.9 Mitral regurgitation I34.0
[2021-01-16] MEDS: DIGOXIN 0.125 MG TAB PO SCH (16:30)
[2021-01-16] MEDS: APIXABAN 5 MG TABLET PO SCH (20:41)
[2021-01-16] MEDS: SOTALOL HCL 80 MG TAB PO SCH (20:41)
[2021-01-16] MEDS ORDERED: DIGOXIN 0.125 MG TAB PO SCH (21:00)
--- NOTE | 2021-01-17 08:25 | Electrocardiogram Report ---
Test Reason : Blood Pressure : / mmHG Vent. Rate : 138 BPM Atrial Rate : 147 BPM P-R Int : 000 ms QRS Dur : 084 ms QT Int : 310 ms P-R-T Axes : 000 030 179 degrees QTc Int : 469 ms Poor data quality, interpretation may be adversely affected Atrial fibrillation with rapid ventricular response with premature ventricular or aberrantly conducte d complexes Possible Inferior infarct , age undetermined Abnormal ECG When compared with ECG of 14-JAN-2021 13:07, Criteria for Anterior infarct are no longer Present ST now depressed in Anterior leads Confirmed by Feliciano Stewart ([id number]) on 01/17/2021 8:24:42 AM Referred By: REFERRED SELF Confirmed By:Enrrique Stewart
--- NOTE | 2021-01-17 08:34 | Cardiology Progress Note ---
Date of Service January 17, 2021 Assessment & Plan (1) Atrial fibrillation with rapid ventricular response: Plan: IMPRESSIONS: 1. Acute systolic heart failure 2. Severe nonischemic cardiomyopathy either secondary to atrial fibrillation with a rapid ventricular response for an extended period of time or secondary to extensive alcohol consumption 3. Severe LV dysfunction with an EF less than 15% 4. Significant alcohol consumption with a new diagnosis of cirrhosis and elevated LFTs 5. Atrial fibrillation with a rapid ventricular response currently anticoagulated with apixaban 6. Moderate mitral regurgitation 7. Hyponatremia which appears chronic Mr. Recinos had a transesophageal echocardiography 01/16 with initiation of sotalol loading following. Sotalol was selected given his comorbidities and amiodarone being a worse choice given his newly diagnosed cirrhosis. Once sotalol is loaded he then could be cardioverted. Hopefully, htis is tachycardia induced cardiomyopathy and that with hinduism of sinus rhythm his LV function will improve with appropriate heart failure therapy. Unfortunately, there is the possibility that he has alcohol induced cardiomyopathy and this may not significantly improve. He has moderate mitral regurgitation likely on the basis of LV annular dilation. Diuretics should continue and adjust according to his renal function. He is currently anticoagulated and tolerating it. Fenofibrate was discontinued given the potential liver toxicity associated with it. If he is able to discontinue alcohol consumption he may see an improvement in his triglycerides. The question with his hyponatremia is this related just to chronic alcohol use and/or heart failure. He should maintain a low-salt diet and track daily weights with regards to heart failure. He was not tolerating the 1500 ml fluid restriction very well so I increased it to 1800 mls for now especially as his sodium had normalized yesterday. BMP is pending. Admission and Anticipated Discharge Date Admission Date: January 14, 2021 Subjective Mr. Recinos is feeling well, no complaints. He has diuresed well, down 7 kgs. Continues to be Afib RVR on the monitor with rates 1teens to 120s. Review of Systems Review of Systems: All systems reviewed & are unremarkable except as noted in HPI & below Physical Exam Constitutional: WD/WN, vitals as above Respiratory: normal respiratory effort, lungs clear to auscultation Cardiovascular: Rate/Rhythm: + abnormal rate and + abnormal rhythm Heart Sounds: normal S1 and normal S2; no murmur Extremities: + edema (trace) Skin: no rashes, warm and dry Neurologic: moves all extremities and awake Psychiatric: Orientation: alert and oriented x 3 Results & Data ([facility]) Vital Signs (Past 12 Hours) Vital Signs Temp Pulse Pulse Resp BP BP Pulse Ox 01/17/21 07:10 36.9 C 74 17 107/88 97 01/17/21 04:05 37.3 C 120 H 18 105/71 96 01/17/21 00:01 115 H 01/16/21 23:01 37.3 C 79 18 102/68 94
[2021-01-17] MEDS: THIAMINE HCL 100 MG TAB PO SCH (09:10)
[2021-01-17] MEDS: SOTALOL HCL 80 MG TAB PO SCH ×2 (09:10→19:59)
[2021-01-17] MEDS: FOLIC ACID 1 MG TAB PO SCH (09:11)
[2021-01-17] MEDS: APIXABAN 5 MG TABLET PO SCH ×2 (09:11→19:58)
[2021-01-17] MEDS: FUROSEMIDE 40 MG in SYRINGE 1 ML IV SCH (09:11)
[2021-01-17 10:10] LABS: Calcium 8.5 mg/dl (8.5-10.1); Creatinine Clr Calc Pharmacy 66.3 ml/min; Est GFR (African American) 73.8 ml/min; Est GFR (Non-African American) 63.7 ml/min; Potassium 3.9 mmol/L (3.5-5.1)
[2021-01-17 10:11] LABS: Magnesium 1.8 mg/dl (1.8-2.4)
[2021-01-17] MEDS ORDERED: POTASSIUM CHLORIDE CRTAB 20 MEQ TABCR PO STA (10:33)
[2021-01-17] MEDS ORDERED: MAGNESIUM SULFATE / D5W 1 GM/100 ML BAG IV ONE (11:00)
--- NOTE | 2021-01-17 11:32 | Hospitalist Progress Note ---
Date of Service January 17, 2021 Assessment & Plan (1) Atrial fibrillation with rapid ventricular response: Plan: Jorge A Recinos is a 70 yo male with PMHx significant for HTN and dyslipidemia who was is admitted to [facility] on 01/14 for new a-fib with RVR and associated hypervolemia. Atrial Fibrillation with Rapid Ventricular Response New diagnosis as of 01/11, but patient reports he has been feeling dyspneic on exertion for several weeks as well as development of lower extremity swelling in the last 2 weeks. Rates uncontrolled despite several doses of IV BBs and Mg. Suspect acute systolic CHF was brought on by this (see below). Rates continued to be rapid despite addition of p.o. metoprolol and electrolyte repletion Appreciate cardiology consultation Echocardiogram with severely reduced EF 15% With evidence of cirrhosis on imaging and elevated LFTs indicating chronic liver disease TSH normal Does have heavy alcohol use Rates improving today after starting sotalol and dc metoprolol-rates 100-120s -Loaded with digoxin and will continue 0.125 mg once daily -PAWAN without thrombus on 01/16 -continue sotalol and DC cardioversion later this week - CHADS-VASc score of 2 - would recommend chronic [id number] Eliquis -Continue monitoring telemetry Continue to follow BMP magnesium and replace as needed-give magnesium and po KCl today (2) Acute systolic (congestive) heart failure: Plan: Several weeks of progressive orthopnea/dyspnea/LE edema, hypervolemic on exam, CXR with cardiomegaly, BNP 4963. Suspect acute CHF in context of uncontrolled a- fib. - TTE shows severely reduced EF 15% This may be tachyarrhythmia induced cardiomyopathy versus alcohol induced cardiomyopathy. No history of anginal symptoms so unlikely to be ischemic in nature although troponin mildly elevated TSH normal Diuresing well with IV Lasix, weight is down 11 kg and edema is much improved having leg and arm cramps now -dc IV Lasix 40 mg twice daily and start lasix 40mg po qAM -Follow BMP and magnesium and replete-giving Mag and K today -Continue low-sodium diet, fluid restrict 1500 mL/day Daily weights -Rate and rhythm control as above and will need to reassess echocardiogram in 1 to 2 months (3) Transaminitis: Plan: Per Power[facility] records from outpatient, patient's LFTs were normal one week ago. Now AST 101 and ALT 94 upon admission. Suspect hepatic congestion in setting of acute CHF, however he does have evidence of cirrhosis on right upper quadrant ultrasound liver Admits to significant alcohol use - RUQ US with cirrhosis noted but no blockage, there is a suggested adenomyomatosis of the gallbladder and a 9 mm indeterminate hypoechoic lesion of the right liver lobe which will need to be followed LFTs continue to be trending downward today - trend LFTs in the AM - diuresis will help with this as well as abstaining from EtOH -Counseled to abstain from alcohol -AWSS in case of alcohol withdrawal scale ordered in case of withdrawal -Continue on thiamine and folic acid p.o. -Discontinued fenofibrate (4) Hypertension: Plan: Blood pressures are low normal at times Holding home lisinopril while titrating beta-cristopher on sotalol now -Diuresing with IV Lasix (5) Dyslipidemia: Plan: Discontinue fenofibrate to avoid further liver toxicity (6) Cirrhosis: Plan: As noted above Will need outpatient follow-up with GI Cessation from all alcohol is recommended (7) Elevated troponin: Plan: No chest pain and EKG with ST/T changes but Troponin elevated at 0.048 and was in rapid atrial fibrillation. Suspect demand ischemia in setting of a-fib with RVR and acute CHF. Troponin stable at 0.06x3 - SL Nitro PRN for chest pain - EKG PRN for chest pain At some point may need ischemic evaluation (8) Hyponatremia: Plan: Sodium 129 admission and now improved with diuresis to 135. Secondary to congestive heart failure and volume overload Continue diuresing with Lasix - trend BMP daily (9) Mitral regurgitation: Plan: Moderate on echocardiogram, could be secondary to LV dysfunction versus volume overload Continue diuresis (10) Gout: Plan: No ongoing issues Recommend alcohol cessation (11) DVT prophylaxis: Plan: Eliquis Disposition-continued stay in PCU Admission and Anticipated Discharge Date Admission Date: January 14, 2021 Subjective Pt feels well. Is having some intermittent cramping in his left arm and left thigh that is painful. Is urinating quite a bit and weight is down significnatly. Denies LOUIS, no CP. He is moving his bowels 3 times today but had been slightly constipated prior. Tele with Afib, rates improved down to 100-120s Review of Systems Review of Systems: All systems reviewed & are unremarkable except as noted in HPI & below Physical Exam Constitutional: WD/WN, vitals as above Eyes: + anicteric sclerae Neck: trachea midline, no thyromegaly Respiratory: normal respiratory effort, lungs clear to auscultation Cardiovascular: Rate/Rhythm: + tachycardic and + irregularly irregular Heart Sounds: no murmur Extremities: + edema (trace pitting edema to mid leg right greater than left legs-improved) Chest (Breasts): Chest: normal inspection of chest Gastrointestinal (Abdomen): normal bowel sounds, soft, nontender, no hepatosplenomegaly Musculoskeletal: Extremities: extremities normal to inspection; no cyanosis and no clubbing Skin: no rashes, warm and dry Neurologic: moves all extremities and awake; no focal motor deficits Psychiatric: A+Ox3, euthymic affect Lymphatic: no lymphedema Results & Data Results & Data ([facility]) Vital Signs (Past 12 Hours) Vital Signs Temp Pulse Pulse Pulse Resp BP BP 01/17/21 11:00 36.8 C 100 H 18 96/66 L 01/17/21 08:00 121 H 01/17/21 07:10 36.9 C 74 17 107/88 01/17/21 04:05 37.3 C 120 H 18 105/71 01/17/21 00:01 115 H Pulse Ox 01/17/21 11:00 96 01/17/21 08:00 01/17/21 07:10 97 01/17/21 04:05 96 01/17/21 00:01 Laboratory Results 01/17/21 Range/Units 09:08 Sodium 135 L (136-145) mmol/L Potassium 3.9 (3.5-5.1) mmol/L Chloride 102 (98-107) mmol/L Carbon Dioxide 29 (21-32) mmol/L Anion Gap 4.0 (3-11) BUN 23 H (7-18) mg/dl Creatinine 1.17 (0.6-1.4) mg/dl Est Cr Clr Drug Dosing 66.3 ml/min Est GFR ( Amer) 73.8 ml/min Est GFR (Non-Af Amer) 63.7 ml/min BUN/Creatinine Ratio 20.0 (10-20) Glucose 141 H (70-99) mg/dl Calcium 8.5 (8.5-10.1) mg/dl Magnesium 1.8 (1.8-2.4) mg/dl PG Care Time/CCT Total # of Minutes Spent Total Time Spent with Patient: Total time spent is greater than 50% in coordination of care (as documented) at patient's floor/unit and/or counseling patient: Coding Level of Care Code 40845 Subseq Hosp Care Lvl 3 Diagnoses Atrial fibrillation with rapid ventricular response I48.91 Acute systolic (congestive) heart failure I50.21 Transaminitis R74.01 Hypertension I10 Dyslipidemia E78.5 Cirrhosis K74.60 Elevated troponin R77.8 Hyponatremia E87.1 Mitral regurgitation I34.0 Gout M10.9 DVT prophylaxis Z29.9
--- NOTE | 2021-01-17 13:23 | Electrocardiogram Report ---
Test Reason : Blood Pressure : / mmHG Vent. Rate : 117 BPM Atrial Rate : 197 BPM P-R Int : 000 ms QRS Dur : 084 ms QT Int : 288 ms P-R-T Axes : 000 061 233 degrees QTc Int : 401 ms Atrial fibrillation with rapid ventricular response with premature ventricular or aberrantly conducte d complexes T wave abnormality, consider lateral ischemia Abnormal ECG When compared with ECG of 16-JAN-2021 14:31, Borderline criteria for Inferior infarct are no longer Present ST no longer depressed in Anterior leads T wave inversion less evident in Anterolateral leads Confirmed by Feliciano Stewart ([id number]) on 01/17/2021 1:22:50 PM Referred By: REFERRED SELF Confirmed By:Enrrique Stewart
[2021-01-17] MEDS: DIGOXIN 0.125 MG TAB PO SCH (16:57)
[2021-01-18 07:27] LABS: Basophils # (auto) 0.01 K/uL (0-0.2); Basophils % (auto) 0.2 %; Eosinophils % (auto) 1.5 %; Hemoglobin 14.9 g/dL (14.0-18.0); Immature Granulocytes # (auto) 0.03 K/uL (0.00-0.02); Immature Granulocytes % (auto) 0.5 %; Lymphocytes # (auto) 1.92 K/uL (1.2-3.4); Lymphocytes % (auto) 29.1 %; Mean Corpuscular Hgb Conc 33.1 g/dL (32-36); Mean Corpuscular Volume 96.8 fL (80-100); Mean Platelet Volume 12.2 fL (7.4-10.4); Monocytes # (auto) 1.11 K/uL (0.11-0.59); Monocytes % (auto) 16.8 %; Neutrophils # (auto) 3.43 K/uL (1.4-6.5); Neutrophils % (auto) 51.9 %; Platelet Count 177 K/uL (130-400); RDW Coefficient of Variation 13.8 % (11.5-14.5); Red Blood Count 4.65 M/uL (4.7-6.1)
[2021-01-18 08:02] LABS: Calcium 8.4 mg/dl (8.5-10.1); Creatinine Clr Calc Pharmacy 64.1 ml/min; Est GFR (African American) 70.9 ml/min; Est GFR (Non-African American) 61.1 ml/min; Magnesium 2.1 mg/dl (1.8-2.4); Potassium 4.3 mmol/L (3.5-5.1)
[2021-01-18 08:05] LABS: Albumin Globulin Ratio 1.3 (0.9-2); Bilirubin,Total 0.6 mg/dl (0.2-1); Globulin 2.3 gm/dl (2.5-4.0); Total Protein 5.3 gm/dl (6.4-8.2)
[2021-01-18] MEDS: SOTALOL HCL 80 MG TAB PO SCH ×2 (08:05→20:47)
[2021-01-18] MEDS: APIXABAN 5 MG TABLET PO SCH ×2 (08:05→20:47)
[2021-01-18] MEDS: FOLIC ACID 1 MG TAB PO SCH (08:05)
[2021-01-18] MEDS: THIAMINE HCL 100 MG TAB PO SCH (08:05)
--- NOTE | 2021-01-18 08:24 | Anesthesiology Consultation ---
Date of Service January 18, 2021 Assessment & Plan (1) Encounter for pre-operative examination: Chart Review Chart Review: Acceptable Risk for Surgery History Surgery Operation Date: 01/16/21 12:00 Proposed Procedures p Transesophageal Echo w/Anesthesia - Soto Stewart MD Height/Weight Height: 6 ft Weight: 91.6 kg Allergies Allergy/AdvReac Type Severity Reaction Status Date / Time No Known Allergies Allergy Unverified 01/14/21 14:14 Medications Home Medications Medication Instructions Recorded Confirmed Last Taken apixaban 5 mg tablet (Eliquis) 5 mg PO BID 01/14/21 01/14/21 Unknown fenofibrate nanocrystallized 145 145 mg PO DAILY 01/14/21 01/14/21 Unknown mg tablet lisinopril 40 mg tablet 40 mg PO DAILY 01/14/21 01/14/21 Unknown metoprolol tartrate 25 mg tablet 25 mg PO TID 01/14/21 01/14/21 01/14/21 prednisone 10 mg tablet 10 mg PO DAILY PRN 01/14/21 01/14/21 Unknown Active Medications Generic Name Dose Route Start Last Admin Trade Name Freq PRN Reason Stop Dose Admin Apixaban 5 mg 01/16/21 21:00 01/18/21 08:05 Apixaban 5 Mg Tablet PO 02/15/21 20:59 5 mg BID TERRY Administration Digoxin 0.125 mg 01/16/21 16:00 01/17/21 16:57 Digoxin 0.125 Mg Tab PO 02/15/21 15:59 0.125 mg DAILY@1600 TERRY Administration Folic Acid 1 mg 01/15/21 12:30 01/18/21 08:05 Folic Acid 1 Mg Tab PO 02/14/21 12:29 1 mg QAM TERRY Administration Furosemide 40 mg 01/18/21 09:00 01/18/21 08:05 Furosemide 40 Mg Tab PO 02/17/21 08:59 40 mg QAM TERRY Administration Sotalol HCl 80 mg 01/16/21 21:00 01/18/21 08:05 Sotalol Hcl 80 Mg Tab PO 02/15/21 20:59 80 mg Q12 TERRY Administration Thiamine HCl 100 mg 01/15/21 12:30 01/18/21 08:05 Thiamine Hcl 100 Mg Tab PO 02/14/21 12:29 100 mg QAM TERRY Administration NPO Date Last Intake of Fluids: 01/15/21 Time Last Intake of Fluids: 20:00 Date Last Intake of Solids: 01/15/21 Time Last Intake of Solids: 20:00 Past Medical History Medical History (Updated 01/18/21 @ 08:24 by Rey Iyer MD) Acute systolic (congestive) heart failure EF 15% Atrial fibrillation with rapid ventricular response Cirrhosis Dyslipidemia Gout Hypertension Mitral regurgitation Past Surgical History Surgical History (Updated 01/18/21 @ 08:24 by Rey Iyer MD) History of transesophageal echocardiography (PAWAN) Social History Smoking Status: Never smoker Hx Alcohol Use: Yes Alcohol type: wine alcohol intake frequency: 0-2 drinks per day Hx Substance Use: No Physical Exam Vital Signs Last Vital Signs Temp 36.6 C 01/18/21 08:03 Pulse 111 H 01/18/21 08:03 Resp 14 01/18/21 08:03 BP 143/96 H 01/18/21 08:03 Pulse Ox 100 01/18/21 08:03 Testing Laboratory Results 01/18/21 07:02 01/18/21 07:02 PT 12.3 Seconds (9.0-12.0) H 01/15/21 01:51 INR 1.2 (0.9-1.1) H 01/15/21 01:51 APTT 102.5 Seconds (21.0-31.0) H* 01/15/21 08:31
[2021-01-18] MEDS ORDERED: FUROSEMIDE 40 MG TAB PO SCH (09:00)
[2021-01-18] MEDS ORDERED: PROPOFOL IV EMULSION 10 MG/ML 20 ML VIAL IV ONE (10:42)
--- NOTE | 2021-01-18 11:40 | Cardioversion ---
Date of Service January 18, 2021 PG Electrical Cardioversion Rp Electrical Cardioversion Report Procedure performed: Cardioversion Indication: The patient is a 70-year-old gentleman with a history of persistent atrial fibrillation and cardiomyopathy. Staff radio script writer: Feliciano Stewart MD Procedure in detail: The patient was informed of the risks benefits and alternatives to the intended procedure. He understood such which proceed. He was taken to the cardiac catheterization suite holding area. A general anesthetic was administered by the Anesthesiology Service. Once appropriately anesthetized, the patient was cardioverted using 200 joules delivered in a biphasic fashion. This returned the patient to sinus rhythm. The patient tolerated procedure well, there were no immediate complications. Patient was neurologically intact subsequent to the procedure. Impression: Successful cardioversion from atrial fibrillation to normal sinus rhythm Coding Level of Care Code Cardioversion, elective Additional Codes Electrical Cardioversion Report ([id number])
--- NOTE | 2021-01-18 11:47 | Anesthesiology Progress Note ---
Date of Service January 18, 2021 Anesthesia Post Procedure Vital Signs Vital Signs: Temp Pulse Pulse Pulse Resp BP Pulse Ox 01/18/21 11:07 36.7 C 114 H 16 117/71 97 01/18/21 08:03 36.6 C 111 H 14 143/96 H 100 01/18/21 07:21 122 H 01/18/21 03:01 36.8 C 123 H 20 123/87 98 01/17/21 23:13 36.5 C 110 H 20 114/79 95 01/17/21 19:27 36.5 C 106 H 20 120/85 95 01/17/21 17:07 121 H 01/17/21 16:57 125 H 01/17/21 15:37 36.6 C 103 H 18 97/53 L 99 Transfer of Care Handoff Completed per policy Notes Mental Status: alert / awake / arousable and participated in evaluation Patient Amnestic to Procedure: Yes Nausea / Vomiting: adequately controlled Pain: adequately controlled Airway Patency, RR, SpO2: stable & adequate BP & HR: stable & adequate Hydration State: stable & adequate Anesthetic Complications: no major complications apparent
--- NOTE | 2021-01-18 13:15 | XCELERA ---
[id number]
[2021-01-18] MEDS ORDERED: METOPROLOL TARTRATE 25 MG TAB PO ONE (13:50)
[2021-01-18] MEDS: DIGOXIN 0.125 MG TAB PO SCH (15:47)
--- NOTE | 2021-01-18 17:43 | Electrocardiogram Report ---
Test Reason : Blood Pressure : / mmHG Vent. Rate : 083 BPM Atrial Rate : 083 BPM P-R Int : 152 ms QRS Dur : 084 ms QT Int : 406 ms P-R-T Axes : 048 003 128 degrees QTc Int : 477 ms Sinus rhythm with frequent , and consecutive Premature ventricular complexes and Premature atrial com plexes T wave abnormality, consider anterolateral ischemia Abnormal ECG When compared with ECG of 17-JAN-2021 06:37, Sinus rhythm has replaced Atrial fibrillation Confirmed by Feliciano Stewart ([id number]) on 01/18/2021 5:43:05 PM Referred By: REFERRED SELF Confirmed By:Enrrique Stewart
--- NOTE | 2021-01-18 17:44 | Electrocardiogram Report ---
Test Reason : Blood Pressure : / mmHG Vent. Rate : 151 BPM Atrial Rate : 302 BPM P-R Int : 000 ms QRS Dur : 074 ms QT Int : 212 ms P-R-T Axes : -71 -18 266 degrees QTc Int : 336 ms Atrial flutter with 2:1 A-V conduction Abnormal ECG When compared with ECG of 18-JAN-2021 11:19, (unconfirmed) Atrial flutter has replaced sinsu rhythm Confirmed by Feliciano Stewart ([id number]) on 01/18/2021 5:44:16 PM Referred By: REFERRED SELF Confirmed By:Enrrique Stewart
--- NOTE | 2021-01-18 18:54 | Hospitalist Progress Note ---
Date of Service January 18, 2021 Assessment & Plan (1) Atrial fibrillation with rapid ventricular response: Plan: Jorge A Recinos is a 70 yo male with PMHx significant for HTN and dyslipidemia who was is admitted to [facility] on 01/14 for new a-fib with RVR and associated hypervolemia. Atrial Fibrillation with Rapid Ventricular Response New diagnosis as of 01/11, but patient reports he has been feeling dyspneic on exertion for several weeks as well as development of lower extremity swelling in the last 2 weeks. Rates uncontrolled despite several doses of IV BBs and Mg. Suspect acute systolic CHF was brought on by this (see below). Rates continued to be rapid despite addition of p.o. metoprolol and electrolyte repletion Appreciate cardiology consultation Echocardiogram with severely reduced EF 15% With evidence of cirrhosis on imaging and elevated LFTs indicating chronic liver disease TSH normal Does have heavy alcohol use Rates only slightly improved after starting sotalol -Loaded with digoxin and will continue 0.125 mg once daily -PAWAN without thrombus on 01/16 -continue sotalol and DC cardioversion performed on 01/18--> converted to NSR x 20 min, then flipped into atrial flutter at rate 160 where he has remained ever since --continue Eliquis -Continue monitoring telemetry Continue to follow BMP magnesium and replace as needed -plan to increase sotalol to 120mg po bid this evening and repeat DCCV on Thursday -continue metoprolol po prn tachycardia (2) Acute systolic (congestive) heart failure: Plan: Several weeks of progressive orthopnea/dyspnea/LE edema, hypervolemic on exam, CXR with cardiomegaly, BNP 4963. Suspect acute CHF in context of uncontrolled a- fib. - TTE shows severely reduced EF 15% This may be tachyarrhythmia induced cardiomyopathy versus alcohol induced cardiomyopathy. No history of anginal symptoms so unlikely to be ischemic in nature although troponin mildly elevated TSH normal Diuresed very well with IV Lasix, weight is down 13 kg and edema is much improved -continue lasix but decrease to 20mg po qAM -Follow BMP and magnesium and replete as needed -Continue low-sodium diet, fluid restrict 1500 mL/day Daily weights -Rate and rhythm control as above and will need to reassess echocardiogram in 1 to 2 months (3) Transaminitis: Plan: Per [facility] records from outpatient, patient's LFTs were normal one week ago. Now AST 101 and ALT 94 upon admission. Suspect hepatic congestion in setting of acute CHF, however he does have evidence of cirrhosis on right upper quadrant ultrasound liver Admits to significant alcohol use - RUQ US with cirrhosis noted but no blockage, there is a suggested adenomyomatosis of the gallbladder and a 9 mm indeterminate hypoechoic lesion of the right liver lobe which will need to be followed LFTs now normal - diuresis helped -Counseled to abstain from alcohol -AWSS in case of alcohol withdrawal scale ordered in case of withdrawal-none noted, can dc AWSS -Continue on thiamine and folic acid p.o. -Discontinued fenofibrate (4) Hypertension: Plan: Blood pressures are low normal at times Holding home lisinopril while titrating beta-cristopher on sotalol now (5) Dyslipidemia: Plan: Discontinue fenofibrate to avoid further liver toxicity (6) Cirrhosis: Plan: As noted above Will need outpatient follow-up with GI Cessation from all alcohol is recommended (7) Elevated troponin: Plan: No chest pain and EKG with ST/T changes but Troponin elevated at 0.048 and was in rapid atrial fibrillation. Suspect demand ischemia in setting of a-fib with RVR and acute CHF. Troponin stable at 0.06x3 - SL Nitro PRN for chest pain - EKG PRN for chest pain At some point may need ischemic evaluation (8) Hyponatremia: Plan: Sodium 129 admission and now improved with diuresis to 135. Secondary to congestive heart failure and volume overload Continue diuresing with Lasix - trend BMP daily (9) Mitral regurgitation: Plan: Moderate on echocardiogram, could be secondary to LV dysfunction versus volume overload Continue diuresis (10) Gout: Plan: No ongoing issues Recommend alcohol cessation (11) Cough: Plan: dry cough x 24 hrs COVID neg on admission a few days ago, afebrile start guaifenesin DM if worsens or fever, certainly repeat COVID (12) DVT prophylaxis: Plan: Eliquis Disposition-continued stay in PCU, needs repeat DCCV Thursday Admission and Anticipated Discharge Date Admission Date: January 14, 2021 Subjective Had DCCV today and was in sinus for 20 min and then converted to atrial flutter at 160 bpm where he has remained ever since. No CP or OSB. States "I feel like a million dollars." Did develop a dry nagging cough the last day or so. Reports he did have a cold about a month ago and had a cough and was taking Robitussin DM and requesting that now. Review of Systems Review of Systems: All systems reviewed & are unremarkable except as noted in HPI & below Physical Exam Constitutional: WD/WN, vitals as above Eyes: + anicteric sclerae Neck: trachea midline, no thyromegaly Respiratory: normal respiratory effort, lungs clear to auscultation Cardiovascular: Rate/Rhythm: regular rhythm and + tachycardic Heart Sounds: no murmur Extremities: + edema (trace pitting edema to mid leg right greater than left legs-improved) Chest (Breasts): Chest: normal inspection of chest Gastrointestinal (Abdomen): normal bowel sounds, soft, nontender, no hepatosplenomegaly Musculoskeletal: Extremities: extremities normal to inspection; no cyanosis and no clubbing Skin: no rashes, warm and dry Neurologic: moves all extremities and awake; no focal motor deficits Psychiatric: A+Ox3, euthymic affect Lymphatic: no lymphedema Results & Data Results & Data ([facility]) Vital Signs (Past 12 Hours) Vital Signs Temp Pulse Pulse Resp BP BP Pulse Ox 01/18/21 15:50 162 H 01/18/21 15:47 36.2 C L 162 H 163 H 16 105/72 97 01/18/21 12:00 36.7 C 153 H 18 100/74 96 01/18/21 11:45 154 H 16 89/71 L 95 01/18/21 11:40 117 H 16 87/66 L 93 01/18/21 11:35 68 16 86/67 L 97 01/18/21 11:30 76 16 88/69 L 95 01/18/21 11:25 74 16 88/71 L 100 01/18/21 11:07 36.7 C 114 H 16 117/71 97 01/18/21 08:03 36.6 C 111 H 14 143/96 H 100 01/18/21 07:21 122 H Laboratory Results 01/18/21 01/18/21 Range/Units 07:02 07:02 WBC 6.60 (4.8-10.8) K/uL RBC 4.65 L (4.7-6.1) M/uL Hgb 14.9 (14.0-18.0) g/dL Hct 45.0 (42-52) % MCV 96.8 (80-100) fL MCH 32.0 (25-34) pg MCHC 33.1 (32-36) g/dL RDW Std Deviation 49.0 H (36.4-46.3) fL RDW Coeff of Racheal 13.8 (11.5-14.5) % Plt Count 177 (130-400) K/uL MPV 12.2 H (7.4-10.4) fL Immature Gran % (Auto) 0.5 % Neut % (Auto) 51.9 % Lymph % (Auto) 29.1 % Mitchell % (Auto) 16.8 % Eos % (Auto) 1.5 % Baso % (Auto) 0.2 % Neut # (Auto) 3.43 (1.4-6.5) K/uL Lymph # (Auto) 1.92 (1.2-3.4) K/uL Mitchell # (Auto) 1.11 H (0.11-0.59) K/uL Eos # (Auto) 0.10 (0-0.5) K/uL Baso # (Auto) 0.01 (0-0.2) K/uL Immature Gran # (Auto) 0.03 H (0.00-0.02) K/uL Sodium 135 L (136-145) mmol/L Potassium 4.3 (3.5-5.1) mmol/L Chloride 103 (98-107) mmol/L Carbon Dioxide 30 (21-32) mmol/L Anion Gap 2.0 L (3-11) BUN 23 H (7-18) mg/dl Creatinine 1.21 (0.6-1.4) mg/dl Est Cr Clr Drug Dosing 64.1 ml/min Est GFR ( Amer) 70.9 ml/min Est GFR (Non-Af Amer) 61.1 ml/min BUN/Creatinine Ratio 19.0 (10-20) Glucose 85 (70-99) mg/dl Calcium 8.4 L (8.5-10.1) mg/dl Magnesium 2.1 (1.8-2.4) mg/dl Total Bilirubin 0.6 (0.2-1) mg/dl AST 23 (15-37) U/L ALT 56 (12-78) U/L Alkaline Phosphatase 35 L (45-117) U/L Total Protein 5.3 L (6.4-8.2) gm/dl Albumin 3.0 L (3.4-5.0) gm/dl Globulin 2.3 L (2.5-4.0) gm/dl Albumin/Globulin Ratio 1.3 (0.9-2) PG Care Time/CCT Total # of Minutes Spent Total Time Spent with Patient: Total time spent is greater than 50% in coordination of care (as documented) at patient's floor/unit and/or counseling patient: Coding Level of Care Code 47936 Subseq Hosp Care Lvl 3 Diagnoses Atrial fibrillation with rapid ventricular response I48.91 Acute systolic (congestive) heart failure I50.21 Transaminitis R74.01 Hypertension I10 Dyslipidemia E78.5 Cirrhosis K74.60 Elevated troponin R77.8 Hyponatremia E87.1 Mitral regurgitation I34.0 Gout M10.9 DVT prophylaxis Z29.9 Cough R05
[2021-01-18] MEDS: guaiFENesin/DEXTROM SYRUP 100MG/10MG 5ML UDC PO PRN (19:29)
[2021-01-19 06:39] LABS: Basophils # (auto) 0.02 K/uL (0-0.2); Basophils % (auto) 0.3 %; Eosinophils % (auto) 1.3 %; Hematocrit (blood only) 46.1 % (42-52); Hemoglobin 15.1 g/dL (14.0-18.0); Immature Granulocytes # (auto) 0.02 K/uL (0.00-0.02); Immature Granulocytes % (auto) 0.3 %; Lymphocytes # (auto) 2.37 K/uL (1.2-3.4); Lymphocytes % (auto) 29.9 %; Mean Corpuscular Hemoglobin 31.9 pg (25-34); Mean Corpuscular Hgb Conc 32.8 g/dL (32-36); Mean Corpuscular Volume 97.3 fL (80-100); Mean Platelet Volume 11.9 fL (7.4-10.4); Monocytes # (auto) 1.06 K/uL (0.11-0.59); Monocytes % (auto) 13.4 %; Neutrophils # (auto) 4.36 K/uL (1.4-6.5); Neutrophils % (auto) 54.8 %; Platelet Count 207 K/uL (130-400); RDW Coefficient of Variation 13.8 % (11.5-14.5); RDW Standard Deviation 49.6 fL (36.4-46.3); Red Blood Count 4.74 M/uL (4.7-6.1); White Blood Count 7.93 K/uL (4.8-10.8)
[2021-01-19 07:20] LABS: BUN Creatinine Ratio 19.1 (10-20); Calcium 8.5 mg/dl (8.5-10.1); Creatinine Clr Calc Pharmacy 62.1 ml/min; Est GFR (African American) 68.1 ml/min; Est GFR (Non-African American) 58.8 ml/min; Magnesium 2.5 mg/dl (1.8-2.4)
[2021-01-19] MEDS: THIAMINE HCL 100 MG TAB PO SCH (07:37)
[2021-01-19] MEDS: FUROSEMIDE 20 MG TAB PO SCH (07:37)
[2021-01-19] MEDS: guaiFENesin/DEXTROM SYRUP 100MG/10MG 5ML UDC PO PRN ×2 (07:37→13:32)
[2021-01-19] MEDS: APIXABAN 5 MG TABLET PO SCH ×2 (07:37→21:53)
[2021-01-19] MEDS: FOLIC ACID 1 MG TAB PO SCH (07:38)
[2021-01-19] MEDS: SOTALOL HCL 80 MG TAB PO SCH ×2 (09:24→21:54)
--- NOTE | 2021-01-19 12:09 | Electrocardiogram Report ---
Test Reason : Blood Pressure : / mmHG Vent. Rate : 164 BPM Atrial Rate : 328 BPM P-R Int : 000 ms QRS Dur : 084 ms QT Int : 250 ms P-R-T Axes : -71 -37 166 degrees QTc Int : 412 ms Atrial flutter with 2:1 A-V conduction Left axis deviation Abnormal ECG When compared with ECG of 18-JAN-2021 11:40, HR has increased by 13 bpm Otherwise no significant change Confirmed by Stu Mclean ([id number]) on 01/19/2021 12:09:01 PM Referred By: REFERRED SELF Confirmed By:Stu Mclean
[2021-01-19] MEDS ORDERED: DIGOXIN 250 MCG in SYRINGE 9 ML IV STA (16:23)
--- NOTE | 2021-01-19 16:30 | Hospitalist Progress Note ---
Date of Service January 19, 2021 Assessment & Plan (1) Atrial fibrillation with rapid ventricular response: Plan: Jorge A Recinos is a 70 yo male with PMHx significant for HTN and dyslipidemia who was is admitted to [facility] on 01/14 for new a-fib with RVR and associated hypervolemia. Atrial Fibrillation with Rapid Ventricular Response New diagnosis as of 01/11, but patient reports he has been feeling dyspneic on exertion for several weeks as well as development of lower extremity swelling in the last 2 weeks. Rates uncontrolled despite several doses of IV BBs and Mg on admission. With acute systolic CHF was brought on by this (see below). Rates continued to be rapid despite addition of p.o. metoprolol and electrolyte repletion Appreciate cardiology consultation Echocardiogram with severely reduced EF 15% With evidence of cirrhosis on imaging and elevated LFTs indicating chronic liver disease TSH normal Does have h/o heavy alcohol use Rates only slightly improved after starting sotalol -Loaded with digoxin and started on 0.125 mg once daily -PAWAN without thrombus on 01/16 -started sotalol and DC cardioversion performed on 01/18--> converted to NSR x 20 min, then flipped into atrial flutter at rate 160 where he has remained ever since -today increase sotalol to 160mg po bid -digoxin level checked 01/19 and low at 0.7--> give digoxin 0.250 mg IV x 1 now and increase daily dose for tomorrow to 250mcg po daily --continue Eliquis -Continue monitoring telemetry Continue to follow BMP magnesium and replace as needed -plan to repeat DCCV on Thursday (2) Acute systolic (congestive) heart failure: Plan: Several weeks of progressive orthopnea/dyspnea/LE edema, hypervolemic on exam, CXR with cardiomegaly, BNP 4963. Suspect acute CHF in context of uncontrolled a- fib. - TTE shows severely reduced EF 15% This may be tachyarrhythmia induced cardiomyopathy versus alcohol induced cardiomyopathy. No history of anginal symptoms so unlikely to be ischemic in nature although troponin mildly elevated TSH normal Diuresed very well with IV Lasix, weight is down 14 kg and edema is much improved -continue lasix 20mg po qAM -Follow BMP and magnesium and replete as needed -Continue low-sodium diet, fluid restrict 1500 mL/day Daily weights -Rate and rhythm control as above and will need to reassess echocardiogram in 1 to 2 months (3) Transaminitis: Plan: Per Power[facility] records from outpatient, patient's LFTs were normal one week ago. Now AST 101 and ALT 94 upon admission. Suspect hepatic congestion in setting of acute CHF, however he does have evidence of cirrhosis on right upper quadrant ultrasound liver Admits to significant alcohol use - RUQ US with cirrhosis noted but no blockage, there is a suggested adenomyomatosis of the gallbladder and a 9 mm indeterminate hypoechoic lesion of the right liver lobe which will need to be followed LFTs now normal - diuresis helped -Counseled to abstain from alcohol -He has had no signs of withdrawal here -Continue on thiamine and folic acid p.o. -Discontinued fenofibrate (4) Hypertension: Plan: Blood pressures are low normal at times but he is asymptomatic Holding home lisinopril while titrating beta-cristopher on sotalol now (5) Dyslipidemia: Plan: Discontinue fenofibrate to avoid further liver toxicity (6) Cirrhosis: Plan: As noted above Will need outpatient follow-up with GI Cessation from all alcohol is recommended (7) Elevated troponin: Plan: No chest pain and EKG with ST/T changes but Troponin elevated at 0.048 and was in rapid atrial fibrillation. Suspect demand ischemia in setting of a-fib with RVR and acute CHF. Troponin stable at 0.06x3 - SL Nitro PRN for chest pain - EKG PRN for chest pain At some point may need ischemic evaluation (8) Hyponatremia: Plan: Sodium 129 admission and now improved with diuresis to 136. Secondary to congestive heart failure and volume overload Continue diuresing with Lasix - trend BMP daily (9) Mitral regurgitation: Plan: Moderate on echocardiogram, could be secondary to LV dysfunction versus volume overload Continue diuresis (10) Gout: Plan: No ongoing issues Recommend alcohol cessation (11) Cough: Plan: dry cough x 2 days, annoying Possibly secondary to rapid atrial flutter COVID neg on admission a few days ago, afebrile started guaifenesin DM if worsens or fever, certainly repeat COVID (12) DVT prophylaxis: Plan: Eliquis Disposition-continued stay in PCU, needs repeat DCCV Thursday Admission and Anticipated Discharge Date Admission Date: January 14, 2021 Subjective Remains in atrial flutter with rates in 160s consistently. Still reports feeling very well. He has no chest pain or shortness of breath. No lightheadedness. He is eating drinking. Review of Systems Review of Systems: All systems reviewed & are unremarkable except as noted in HPI & below Physical Exam Constitutional: WD/WN, vitals as above Eyes: + anicteric sclerae Neck: trachea midline, no thyromegaly Respiratory: normal respiratory effort, lungs clear to auscultation Cardiovascular: Rate/Rhythm: regular rhythm and + tachycardic Heart Sounds: no murmur Extremities: no edema Chest (Breasts): Chest: normal inspection of chest Gastrointestinal (Abdomen): normal bowel sounds, soft, nontender, no hepatosplenomegaly Musculoskeletal: Extremities: extremities normal to inspection; no cyanosis and no clubbing Skin: no rashes, warm and dry Neurologic: moves all extremities and awake; no focal motor deficits Psychiatric: A+Ox3, euthymic affect Lymphatic: no lymphedema Results & Data Results & Data ([facility]) Vital Signs (Past 12 Hours) Vital Signs Temp Pulse Pulse Pulse Resp BP Pulse Ox 01/19/21 16:00 20 01/19/21 15:54 36.8 C 166 H 95/54 L 97 01/19/21 12:31 36.4 C L 160 H 18 90/59 L 97 01/19/21 08:43 159 H 01/19/21 07:13 35.8 C L 162 H 18 105/73 100 Laboratory Results 01/19/21 01/19/21 01/19/21 Range/Units 15:18 06:00 06:00 WBC 7.93 (4.8-10.8) K/uL RBC 4.74 (4.7-6.1) M/uL Hgb 15.1 (14.0-18.0) g/dL Hct 46.1 (42-52) % MCV 97.3 (80-100) fL MCH 31.9 (25-34) pg MCHC 32.8 (32-36) g/dL RDW Std Deviation 49.6 H (36.4-46.3) fL RDW Coeff of Racheal 13.8 (11.5-14.5) % Plt Count 207 (130-400) K/uL MPV 11.9 H (7.4-10.4) fL Immature Gran % (Auto) 0.3 % Neut % (Auto) 54.8 % Lymph % (Auto) 29.9 % [place] % (Auto) 13.4 % Eos % (Auto) 1.3 % Baso % (Auto) 0.3 % Neut # (Auto) 4.36 (1.4-6.5) K/uL Lymph # (Auto) 2.37 (1.2-3.4) K/uL [place] # (Auto) 1.06 H (0.11-0.59) K/uL Eos # (Auto) 0.10 (0-0.5) K/uL Baso # (Auto) 0.02 (0-0.2) K/uL Immature Gran # (Auto) 0.02 (0.00-0.02) K/uL Sodium 136 (136-145) mmol/L Potassium 4.0 (3.5-5.1) mmol/L Chloride 103 (98-107) mmol/L Carbon Dioxide 27 (21-32) mmol/L Anion Gap 6.0 (3-11) BUN 24 H (7-18) mg/dl Creatinine 1.25 (0.6-1.4) mg/dl Est Cr Clr Drug Dosing 62.1 ml/min Est GFR ( Amer) 68.1 ml/min Est GFR (Non-Af Amer) 58.8 ml/min BUN/Creatinine Ratio 19.1 (10-20) Glucose 86 (70-99) mg/dl Calcium 8.5 (8.5-10.1) mg/dl Magnesium 2.5 H (1.8-2.4) mg/dl Digoxin 0.7 L (0.8-2.0) ng/ml PG Care Time/CCT Total # of Minutes Spent Total Time Spent with Patient: Total time spent is greater than 50% in coordination of care (as documented) at patient's floor/unit and/or counseling patient: Coding Level of Care Code 48295 Subseq Hosp Care Lvl 3 Diagnoses Atrial fibrillation with rapid ventricular response I48.91 Acute systolic (congestive) heart failure I50.21 Transaminitis R74.01 Hypertension I10 Dyslipidemia E78.5 Cirrhosis K74.60 Elevated troponin R77.8 Hyponatremia E87.1 Mitral regurgitation I34.0 Gout M10.9 Cough R05 DVT prophylaxis Z29.9
[2021-01-19] MEDS: DIGOXIN 0.125 MG TAB PO SCH (17:06)
[2021-01-20] MEDS: guaiFENesin/DEXTROM SYRUP 100MG/10MG 5ML UDC PO PRN ×4 (03:35→23:11)
[2021-01-20] MEDS: APIXABAN 5 MG TABLET PO SCH ×2 (08:17→19:36)
[2021-01-20] MEDS: SOTALOL HCL 80 MG TAB PO SCH ×2 (08:18→19:36)
[2021-01-20] MEDS: FUROSEMIDE 20 MG TAB PO SCH (08:18)
[2021-01-20] MEDS: FOLIC ACID 1 MG TAB PO SCH (08:18)
[2021-01-20] MEDS: THIAMINE HCL 100 MG TAB PO SCH (08:18)
[2021-01-20 09:49] LABS: Potassium 4.1 mmol/L (3.5-5.1)
[2021-01-20 10:00] LABS: Albumin Level 2.9 gm/dl (3.4-5.0); BUN Creatinine Ratio 21.1 (10-20); Calcium 8.6 mg/dl (8.5-10.1); Creatinine Clr Calc Pharmacy 74.6 ml/min; Est GFR (African American) 85.1 ml/min; Est GFR (Non-African American) 73.4 ml/min; Magnesium 1.8 mg/dl (1.8-2.4)
[2021-01-20 10:03] LABS: Albumin Globulin Ratio 1.1 (0.9-2); Bilirubin,Total 0.4 mg/dl (0.2-1); Globulin 2.6 gm/dl (2.5-4.0); Total Protein 5.5 gm/dl (6.4-8.2)
[2021-01-20] MEDS ORDERED: MAGNESIUM SULFATE / D5W 1 GM/100 ML BAG IV ONE ×2 (11:59→16:30)
[2021-01-20] MEDS ORDERED: DIGOXIN 0.25 MG TAB PO SCH (16:00)
--- NOTE | 2021-01-20 16:09 | Hospitalist Progress Note ---
Date of Service January 20, 2021 Assessment & Plan (1) Atrial fibrillation with rapid ventricular response: Plan: Jorge A Recinos is a 70 yo male with PMHx significant for HTN and dyslipidemia who was is admitted to [facility] on 01/14 for new a-fib with RVR and associated hypervolemia. Atrial Fibrillation with Rapid Ventricular Response New diagnosis as of 01/11, but patient reports he has been feeling dyspneic on exertion for several weeks as well as development of lower extremity swelling in the last 2 weeks prior to admission. Rates uncontrolled despite several doses of IV BBs and Mg on admission. With acute systolic CHF was brought on by this (see below). Rates continued to be rapid despite addition of p.o. metoprolol and electrolyte repletion Appreciate cardiology consultation Echocardiogram with severely reduced EF 15% With evidence of cirrhosis on imaging and elevated LFTs indicating chronic liver disease TSH normal Does have h/o heavy alcohol use Rates only slightly improved after starting sotalol -Loaded with digoxin and initially started on 0.125 mg once daily -PAWAN without thrombus on 01/16 -started sotalol and DC cardioversion performed on 01/18--> converted to NSR x 20 min, then flipped into atrial flutter at rate 160 where he has remained ever since -increased sotalol to 160mg po bid on evening of 01/19 -digoxin level checked 01/19 and low at 0.7--> reloaded again with digoxin 0.250 mg IV x 1 and increased daily dose to 250mcg po daily on 01/20 On 01/20, rates slowing down in A-flutter to 120-130s with very frequent PVCs, some runs of VT vs aberrancy ECG with prolonged QTc 500 on 01/20 -continue Eliquis -Continue monitoring telemetry -give 2 grams of IV Magnesium sulfate today, keep K and Mg at least at 4 and 2 -Continue to follow BMP magnesium in AM -plan to repeat DCCV on Thursday possibly, keep NPO after midnight (2) Atrial flutter with rapid ventricular response: Plan: as above (3) Acute systolic (congestive) heart failure: Plan: Several weeks of progressive orthopnea/dyspnea/LE edema, hypervolemic on exam, CXR with cardiomegaly, BNP 4963. Suspect acute CHF in context of uncontrolled a- fib. - TTE shows severely reduced EF 15% This may be tachyarrhythmia induced cardiomyopathy versus alcohol induced cardiomyopathy. No history of anginal symptoms so unlikely to be ischemic in nature although troponin mildly elevated TSH normal Diuresed very well with IV Lasix, weight is down 14 kg and edema is almost completely resolved -continue lasix 20mg po qAM -Follow BMP and magnesium and replete as needed -Continue low-sodium diet, fluid restrict 1800 mL/day -Daily weights -Rate and rhythm control as above and will need to reassess echocardiogram in 1 to 2 months (4) Transaminitis: Plan: Per [facility] records from outpatient, patient's LFTs were normal one week ago. Now AST 101 and ALT 94 upon admission. Suspect hepatic congestion in setting of acute CHF, however he does have evidence of cirrhosis on right upper quadrant ultrasound liver Admits to significant alcohol use - RUQ US with cirrhosis noted but no blockage, there is a suggested adenomyomatosis of the gallbladder and a 9 mm indeterminate hypoechoic lesion of the right liver lobe which will need to be followed LFTs now normal after diuresis -Counseled to abstain from alcohol -He has had no signs of withdrawal here -Continue on thiamine and folic acid p.o. -Discontinued fenofibrate (5) Hypertension: Plan: Blood pressures are low normal at times but he is asymptomatic Holding home lisinopril while titrating beta-cristopher on sotalol now (6) Dyslipidemia: Plan: Discontinue fenofibrate to avoid further liver toxicity (7) Cirrhosis: Plan: As noted above Will need outpatient follow-up with GI Cessation from all alcohol is recommended (8) Elevated troponin: Plan: No chest pain and EKG with ST/T changes but Troponin elevated at 0.048 and was in rapid atrial fibrillation. Suspect demand ischemia in setting of a-fib with RVR and acute CHF. Troponin stable at 0.06x3 - SL Nitro PRN for chest pain - EKG PRN for chest pain At some point may need ischemic evaluation (9) Hyponatremia: Plan: Sodium 129 admission and now improved with diuresis to 137. Secondary to congestive heart failure and volume overload Continue diuresing with Lasix 20mg po daily - trend BMP daily (10) Mitral regurgitation: Plan: Moderate on echocardiogram, could be secondary to LV dysfunction versus volume overload Continue diuresis (11) Gout: Plan: No ongoing issues Recommend alcohol cessation (12) Cough: Plan: dry cough x 3 days, annoying Likely bronchospasm from sotalol COVID neg on admission a few days ago, remains afebrile started guaifenesin DM prn if not improving or worsens, consider repeating COVID but if from sotalol, may need to consider changing to another antiarrhythmic (13) DVT prophylaxis: Plan: Tram Disposition-continued stay in PCU, needs repeat DCCV possibly Thursday. NPO after midnight Admission and Anticipated Discharge Date Admission Date: January 14, 2021 Subjective Pt feeling sad today because one of his good friends of 50 years yesterday he found out. He otherwise denies CP, SOB, lightheadedness. He is having atrial flutter but rates have slowed down to 120-130s today and has very frequent PVCs, a few runs of aberrancy vs VT. Still with persistent dry cough. Review of Systems Review of Systems: All systems reviewed & are unremarkable except as noted in HPI & below Physical Exam Constitutional: WD/WN, vitals as above Eyes: + anicteric sclerae Neck: trachea midline, no thyromegaly Respiratory: normal respiratory effort, lungs clear to auscultation Cardiovascular: Rate/Rhythm: + tachycardic and + irregularly irregular (with frequent ectopy) Heart Sounds: no murmur Extremities: no edema Chest (Breasts): Chest: normal inspection of chest Gastrointestinal (Abdomen): normal bowel sounds, soft, nontender, no hepatosplenomegaly Musculoskeletal: Extremities: extremities normal to inspection; no cyanosis and no clubbing Skin: no rashes, warm and dry Neurologic: moves all extremities and awake; no focal motor deficits Psychiatric: A+Ox3, euthymic affect Lymphatic: no lymphedema Results & Data Results & Data ([facility]) Vital Signs (Past 12 Hours) Vital Signs Temp Pulse Pulse Resp BP BP Pulse Ox 01/20/21 15:24 36.9 C 106 H 18 101/90 97 01/20/21 11:35 36.5 C 89 18 94/62 L 99 01/20/21 09:44 154 H 01/20/21 08:14 36.5 C 160 H 18 103/76 95 Laboratory Results 01/20/21 Range/Units 09:21 Sodium 137 (136-145) mmol/L Potassium 4.1 (3.5-5.1) mmol/L Chloride 104 (98-107) mmol/L Carbon Dioxide 29 (21-32) mmol/L Anion Gap 4.0 (3-11) BUN 22 H (7-18) mg/dl Creatinine 1.04 (0.6-1.4) mg/dl Est Cr Clr Drug Dosing 74.6 ml/min Est GFR ( Amer) 85.1 ml/min Est GFR (Non-Af Amer) 73.4 ml/min BUN/Creatinine Ratio 21.1 H (10-20) Glucose 130 H (70-99) mg/dl Calcium 8.6 (8.5-10.1) mg/dl Magnesium 1.8 (1.8-2.4) mg/dl Total Bilirubin 0.4 (0.2-1) mg/dl AST 25 (15-37) U/L ALT 43 (12-78) U/L Alkaline Phosphatase 35 L (45-117) U/L Total Protein 5.5 L (6.4-8.2) gm/dl Albumin 2.9 L (3.4-5.0) gm/dl Globulin 2.6 (2.5-4.0) gm/dl Albumin/Globulin Ratio 1.1 (0.9-2) PG Care Time/CCT Total # of Minutes Spent Total Time Spent with Patient: Total time spent is greater than 50% in coordination of care (as documented) at patient's floor/unit and/or counseling patient: Coding Level of Care Code 80351 Subseq Hosp Care Lvl 3 Diagnoses Atrial fibrillation with rapid ventricular response I48.91 Acute systolic (congestive) heart failure I50.21 Transaminitis R74.01 Hypertension I10 Dyslipidemia E78.5 Cirrhosis K74.60 Elevated troponin R77.8 Hyponatremia E87.1 Mitral regurgitation I34.0 Gout M10.9 Cough R05 DVT prophylaxis Z29.9 Atrial flutter with rapid ventricular response I48.92
[2021-01-21 07:00] LABS: Basophils # (auto) 0.02 K/uL (0-0.2); Basophils % (auto) 0.3 %; Eosinophils # (auto) 0.11 K/uL (0-0.5); Eosinophils % (auto) 1.5 %; Hematocrit (blood only) 43.4 % (42-52); Hemoglobin 14.1 g/dL (14.0-18.0); Immature Granulocytes # (auto) 0.02 K/uL (0.00-0.02); Immature Granulocytes % (auto) 0.3 %; Lymphocytes # (auto) 2.27 K/uL (1.2-3.4); Lymphocytes % (auto) 30.1 %; Mean Corpuscular Hemoglobin 31.6 pg (25-34); Mean Corpuscular Hgb Conc 32.5 g/dL (32-36); Mean Corpuscular Volume 97.3 fL (80-100); Mean Platelet Volume 11.6 fL (7.4-10.4); Monocytes # (auto) 1.08 K/uL (0.11-0.59); Monocytes % (auto) 14.3 %; Neutrophils # (auto) 4.05 K/uL (1.4-6.5); Neutrophils % (auto) 53.5 %; Platelet Count 194 K/uL (130-400); RDW Coefficient of Variation 13.7 % (11.5-14.5); RDW Standard Deviation 49.3 fL (36.4-46.3); Red Blood Count 4.46 M/uL (4.7-6.1); White Blood Count 7.55 K/uL (4.8-10.8)
[2021-01-21 07:33] LABS: BUN Creatinine Ratio 21.2 (10-20); Calcium 8.3 mg/dl (8.5-10.1); Creatinine Clr Calc Pharmacy 64.7 ml/min; Est GFR (African American) 71.6 ml/min; Est GFR (Non-African American) 61.8 ml/min; Magnesium 2.3 mg/dl (1.8-2.4); Phosphorus 3.1 mg/dl (2.5-4.9); Potassium 4.4 mmol/L (3.5-5.1)
[2021-01-21] MEDS: FUROSEMIDE 20 MG TAB PO SCH (08:03)
[2021-01-21] MEDS: SOTALOL HCL 80 MG TAB PO SCH (08:04)
[2021-01-21] MEDS: APIXABAN 5 MG TABLET PO SCH (08:04)
[2021-01-21] MEDS: FOLIC ACID 1 MG TAB PO SCH (08:04)
[2021-01-21] MEDS: THIAMINE HCL 100 MG TAB PO SCH (08:04)
[2021-01-21] MEDS: guaiFENesin/DEXTROM SYRUP 100MG/10MG 5ML UDC PO PRN (10:28)
--- NOTE | 2021-01-21 11:25 | Cardiology Progress Note ---
Date of Service January 21, 2021 Assessment & Plan (1) Atrial fibrillation with rapid ventricular response: Plan: -ventricular response to atrial flutter remains rapid despite increased doses of sotalol and digoxin. -will attempt electrical cardioversion today. -if electrical cardioversion not successful, we may need to consider an ablation. -tolerating Eliquis without difficulty. (2) Cardiomyopathy: Plan: -suspect a tachycardic induced cardiomyopathy. -alcoholic cardiomyopathy also a possibility. (3) Acute systolic (congestive) heart failure: Plan: -left ventricular ejection fraction of <20% on current study. -euvolemic on Lasix 20 mg daily. -may benefit from beta-cristopher therapy if blood pressure allows. -may benefit from ACEI/ARB if blood pressure allows. Admission and Anticipated Discharge Date Admission Date: January 14, 2021 Subjective The patient is resting comfortably in bed without complaints of chest pain, dyspnea, or palpitations. Physical Exam Physical Exam: In general this is a well-developed well-nourished white male in no acute distress. HEENT exam is negative. Neck is supple with full carotid upstrokes. No carotid bruits. Jugular venous pressure is flat at 90. There is no thyromegaly. Cardiovascular exam reveals an irregularly irregular rhythm with distant heart sounds. No obvious murmurs. Lungs are clear without rales, rhonchi or wheezes. Abdomen is soft and nontender without bruits extremities reveal intact radial artery pulses bilaterally. There is no peripheral edema. Results & Data ([facility]) Vital Signs (Past 12 Hours) Vital Signs Temp Pulse Pulse Resp BP BP Pulse Ox 01/21/21 09:47 157 H 01/21/21 08:13 36.5 C 162 H 18 103/71 98 01/21/21 03:38 36.5 C 156 H 20 108/82 97 01/20/21 23:28 36.3 C L 113 H 18 107/67 98 Diagnostic Findings desk monitor notes atrial flutter with 2-1 conduction currently. There was evidence of atrial flutter with a controlled ventricular response last evening. PG Care Time/CCT Total # of Minutes Spent Total Time Spent with Patient: Total time spent is greater than 50% in coordination of care (as documented) at patient's floor/unit and/or counseling patient: Coding Level of Care Code 26645 Subseq Hosp Care Lvl 3 Diagnoses Atrial fibrillation with rapid ventricular response I48.91 Cardiomyopathy I42.9 Acute systolic (congestive) heart failure I50.21
[2021-01-21] MEDS ORDERED: LIDOCAINE 2% 2 ML VIAL/AMP(20MG/ML) INFIL ONE (11:45)
[2021-01-21] MEDS ORDERED: PROPOFOL IV EMULSION 10 MG/ML 20 ML VIAL IV ONE (11:45)
--- NOTE | 2021-01-21 12:08 | Anesthesiology Consultation ---
Date of Service January 21, 2021 Assessment & Plan Chart Review Chart Review: Acceptable Risk for Surgery, Patient NOT seen in Pre Admission Testing and entry level paralegal initiated Consults Requested none History Surgery Operation Date: 01/16/21 12:00 Proposed Procedures p Transesophageal Echo w/Anesthesia - Soto Stewart MD Operation Date: 01/18/21 11:00 Proposed Procedures p Cardioversion Ssn/Ssbn Assistant Navigator w/Anesthesia - Soto Stewart MD Operation Date: 01/21/21 13:30 Proposed Procedures p Cardioversion - Genaro Landeros MD Height/Weight Height: 6 ft Weight: 90.9 kg Allergies Allergy/AdvReac Type Severity Reaction Status Date / Time No Known Allergies Allergy Unverified 01/14/21 14:14 Medications Home Medications Medication Instructions Recorded Confirmed Last Taken apixaban 5 mg tablet (Eliquis) 5 mg PO BID 01/14/21 01/14/21 Unknown fenofibrate nanocrystallized 145 145 mg PO DAILY 01/14/21 01/14/21 Unknown mg tablet lisinopril 40 mg tablet 40 mg PO DAILY 01/14/21 01/14/21 Unknown metoprolol tartrate 25 mg tablet 25 mg PO TID 01/14/21 01/14/21 01/14/21 prednisone 10 mg tablet 10 mg PO DAILY PRN 01/14/21 01/14/21 Unknown Active Medications Generic Name Dose Route Start Last Admin Trade Name Freq PRN Reason Stop Dose Admin Acetaminophen 650 mg 01/14/21 19:32 01/19/21 03:26 Acetaminophen 325 Mg Tab PO 02/13/21 19:31 650 mg Q4H PRN Administration Pain or Fever Apixaban 5 mg 01/16/21 21:00 01/21/21 08:04 Apixaban 5 Mg Tablet PO 02/15/21 20:59 5 mg BID TERRY Administration Digoxin 0.25 mg 01/20/21 16:00 01/20/21 17:03 Digoxin 0.25 Mg Tab PO 02/19/21 15:59 0.25 mg DAILY@1600 TERRY Administration Folic Acid 1 mg 01/15/21 12:30 01/21/21 08:04 Folic Acid 1 Mg Tab PO 02/14/21 12:29 1 mg QAM TERRY Administration Furosemide 20 mg 01/19/21 09:00 01/21/21 08:03 Furosemide 20 Mg Tab PO 02/18/21 08:59 20 mg QAM TERRY Administration Guaifenesin/Dextromethorphan 5 ml 01/18/21 18:52 01/21/21 10:28 Guaifenesin/Dextrom Syrup 100mg/10mg 5ml Udc PO 02/17/21 18:51 5 ml Q6H PRN Administration Cough Sotalol HCl 160 mg 01/19/21 21:00 01/21/21 08:04 Sotalol Hcl 80 Mg Tab PO 02/18/21 20:59 160 mg Q12 TERRY Administration Thiamine HCl 100 mg 01/15/21 12:30 01/21/21 08:04 Thiamine Hcl 100 Mg Tab PO 02/14/21 12:29 100 mg QAM TERRY Administration NPO Date Last Intake of Fluids: 01/15/21 Time Last Intake of Fluids: 20:00 Date Last Intake of Solids: 01/15/21 Time Last Intake of Solids: 20:00 Past Medical History Medical History Acute systolic (congestive) heart failure EF 15% Atrial fibrillation with rapid ventricular response Cirrhosis Dyslipidemia Gout Hypertension Mitral regurgitation Past Surgical History Surgical History History of transesophageal echocardiography (PAWAN) Social History Smoking Status: Never smoker Hx Alcohol Use: Yes Alcohol type: wine alcohol intake frequency: 0-2 drinks per day Hx Substance Use: No Physical Exam Vital Signs Last Vital Signs Temp 37.0 C 01/21/21 12:00 Pulse 91 H 01/21/21 12:00 Resp 18 01/21/21 12:00 BP 100/70 01/21/21 12:00 Pulse Ox 98 01/21/21 12:00 Testing Laboratory Results 01/21/21 06:46 01/21/21 06:46 PT 12.3 Seconds (9.0-12.0) H 01/15/21 01:51 INR 1.2 (0.9-1.1) H 01/15/21 01:51 APTT 102.5 Seconds (21.0-31.0) H* 01/15/21 08:31 Electrocardiogram Date: 01/21/2121-Jan-2021 05:51:09 [facility] ROUTINE RETRIEVAL Atrial flutter with 2:1 A-V conduction Left axis deviation Septal infarct (cited on or before 20-JAN-2021) S T & T wave abnormality, consider inferolateral ischemia Abnormal ECG When compared with ECG of 20-JAN-2021 06:24, (unconfirmed) No significant change was found Chest X-Ray Date: 01/14/21 XR chest 1V portable HISTORY: Atypical Chest Pain COMPARISON: None. FINDINGS: The cardiac silhouette is mildly enlarged. There is a tortuous thoracic aorta. No focal lung consolidations to suggest pneumonia. No evidence for pulmonary edema. No pleural effusions. No pneumothorax. Right retrocardiac linear density may represent a normal pulmonary vessel or subsegmental atelectasis. IMPRESSION: Mild cardiomegaly. Otherwise, no acute process within the chest. Echocardiogram Date: 01/15/21 EF: <15% LV Function: dysfunctional (Severe global hypokinesis)
[2021-01-21] MEDS ORDERED: ETOMIDATE 2 MG/ML 20 ML VIAL IV ONE (13:24)
--- NOTE | 2021-01-21 14:10 | Cardioversion ---
Date of Service January 21, 2021 PG Electrical Cardioversion Rp Electrical Cardioversion Report Date of procedure: January 21, 2021 Procedure: Elective electrical cardioversion Indication: Refractory atrial fibrillation and atrial flutter Protocol: After informed consent and a time-out performed, the patient was sedated smoothly by Anesthesia. The patient was monitored continuously by telemetry, end-tidal CO2, pulse oximetry, and sphygmomanometry. Once asleep, the patient was given 125 joules of synchronized biphasic energy via hands-off paddles. The patient successfully converted to sinus rhythm. Following the procedure, the patient was hemodynamically stable and without complaints. There were no complications. Conclusions: 1. Successful conversion to sinus rhythm. 2. No complications. Coding Level of Care Code Cardioversion, elective Additional Codes Electrical Cardioversion Report ([id number]) Time Spent (min) 45
--- NOTE | 2021-01-21 14:59 | Anesthesiology Progress Note ---
Date of Service January 21, 2021 Anesthesia Post Procedure Vital Signs Vital Signs: Temp Pulse Pulse Resp BP BP Pulse Ox 01/21/21 14:50 37.0 C 73 20 108/82 99/70 L 98 01/21/21 14:19 75 73 20 99/70 L 98 01/21/21 14:05 77 15 92/66 L 96 01/21/21 14:00 78 15 92/68 L 99 01/21/21 13:50 76 15 103/69 98 01/21/21 13:45 70 15 95/61 L 98 01/21/21 13:31 89 16 107/82 89 L 01/21/21 12:00 37.0 C 91 H 18 100/70 98 01/21/21 09:47 157 H 01/21/21 08:13 36.5 C 162 H 18 103/71 98 01/21/21 03:38 36.5 C 156 H 20 108/82 97 01/20/21 23:28 36.3 C L 113 H 18 107/67 98 01/20/21 19:26 37.4 C 168 H 20 102/69 96 01/20/21 17:03 155 H 01/20/21 17:00 163 H 01/20/21 15:24 36.9 C 106 H 18 101/90 97 Transfer of Care Handoff Completed per policy Notes Mental Status: alert / awake / arousable and participated in evaluation Patient Amnestic to Procedure: Yes Nausea / Vomiting: adequately controlled Pain: adequately controlled Airway Patency, RR, SpO2: stable & adequate BP & HR: stable & adequate Hydration State: stable & adequate Anesthetic Complications: no major complications apparent and Pt Satisfied with anesthetic care
--- NOTE | 2021-01-21 15:50 | Electrocardiogram Report ---
Test Reason : Blood Pressure : / mmHG Vent. Rate : 159 BPM Atrial Rate : 318 BPM P-R Int : 000 ms QRS Dur : 090 ms QT Int : 308 ms P-R-T Axes : -84 -48 234 degrees QTc Int : 501 ms Atrial flutter with 2:1 A-V conduction Left axis deviation Poor R wave progression, consider anterior ME vs. lead placement vs. LVH Abnormal ECG When compared with ECG of 19-JAN-2021 07:45, No significant change Confirmed by Genaro Landeros ([id number]) on 01/21/2021 3:49:44 PM Referred By: REFERRED SELF Confirmed By:Genaro Landeros
--- NOTE | 2021-01-21 16:28 | Electrocardiogram Report ---
Test Reason : Blood Pressure : / mmHG Vent. Rate : 157 BPM Atrial Rate : 314 BPM P-R Int : 000 ms QRS Dur : 090 ms QT Int : 320 ms P-R-T Axes : -84 -48 240 degrees QTc Int : 517 ms Atrial flutter with 2:1 A-V conduction Left axis deviation Septal infarct (cited on or before 20-JAN-2021) Abnormal ECG When compared with ECG of 20-JAN-2021 06:24, (unconfirmed) No significant change was found Confirmed by Genaro Landeros ([id number]) on 01/21/2021 4:28:18 PM Referred By: REFERRED SELF Confirmed By:Genaro Landeros
--- NOTE | 2021-01-21 16:40 | Electrocardiogram Report ---
Test Reason : Blood Pressure : / mmHG Vent. Rate : 076 BPM Atrial Rate : 076 BPM P-R Int : 162 ms QRS Dur : 088 ms QT Int : 384 ms P-R-T Axes : 055 -06 258 degrees QTc Int : 432 ms Normal sinus rhythm Possible Inferior infarct , age undetermined Abnormal ECG When compared with ECG of 21-JAN-2021 05:51, (unconfirmed) Significant changes have occurred Confirmed by Genaro Landeros ([id number]) on 01/21/2021 4:39:48 PM Referred By: REFERRED SELF Confirmed By:Genaro Landeros
--- NOTE | 2021-01-21 17:01 | Discharge Summary ---
Date of Service January 21, 2021 Admission HPI Per Admitting Provider Jorge A Recinos is a 70 yo male with PMHx significant for HTN and dyslipidemia who was sent to [facility] ED by [facility] for new a-fib with RVR. He was diagnosed by PCP (Dr. Jeffers - [facility]) on 01/11. He was prescribed Metoprolol tartrate 50mg PO TID and took this several times over the course of 3 days; was also prescribed Eliquis but did not take this. Presented to [facility] (Melba Riley) on 01/14 in a-fib with RVR and was sent to [facility] ED. En route to the ED he took another dose of home Metoprolol. Patient reports ~one month of progressive dyspnea on exertion, PND, orthopnea and LE edema. He denies chest pain or palpitations and reports he was unaware of his rapid heart beat. Denies previous history of heart disease or atrial fibrillation. Denies recent changes in medications. Denies recent illnesses or sick contacts, fever/chills, cough, wheezing, N/V, abdominal pain, rash. In the ED the patient was in a-fib with RVR, rates of 140s-150s. He received two doses of Lopressor 5mg IV and two doses of Magnesium IV but rates only slightly improved to 130s, and he became borderline hypotensive at 92/68. He was started on Heparin gtt and we were consulted for admission. Principal Diagnosis Atrial fibrillation / atrial flutter Discharge Exam Constitutional WD/WN, vitals as above Eyes EOM intact bilaterally; no conjunctival abnormality ENMT external ear and nose normal, oropharynx normal Neck trachea midline, no thyromegaly normal visual inspection Respiratory normal respiratory effort, lungs clear to auscultation no respiratory distress Cardiovascular RRR, no murmur, no edema Gastrointestinal (Abdomen) Inspection/Auscultation: abdomen normal to inspection; abdomen not distended Musculoskeletal no cyanosis or clubbing, extremities motor strength 5/5 Skin no rashes, warm and dry Neurologic moves all extremities and awake Psychiatric Orientation: alert, oriented to person and cooperative Discharge Data Allergies Allergy/AdvReac Type Severity Reaction Status Date / Time No Known Allergies Allergy Unverified 01/14/21 14:14 Consultations 01/14/21 15:58 ED Decision to Admit Stat 01/14/21 19:32 Consult Cardiology Routine 01/15/21 11:05 Consult Cardiology Routine 01/15/21 17:34 Consult Anesthesiology Routine Procedures Performed Operation Date: 01/16/21 12:00 Actual Procedures p Echo Transesophageal - Soto Stewart MD s Echo Color Flow - Soto Stewart MD s Echo Doppler Complete - Soto Stewart MD Operation Date: 01/18/21 11:00 Actual Procedures p Cardioversion - Soto Stewart MD Operation Date: 01/21/21 13:30 Actual Procedures p Cardioversion - Genaro Landeros MD Ordered Studies 01/15/21 liver Stat Hospital Course (1) Atrial fibrillation with rapid ventricular response: Jorge A Recinos is a 70 yo male with PMHx significant for HTN and dyslipidemia who was is admitted to [facility] on 01/14 for new a-fib with RVR and associated hypervolemia. Atrial Fibrillation with Rapid Ventricular Response New diagnosis as of 01/11, but patient reports he has been feeling dyspneic on exertion for several weeks as well as development of lower extremity swelling in the last 2 weeks prior to admission. Rates uncontrolled despite several doses of IV BBs and Mg on admission. With acute systolic CHF was brought on by this (see below). Rates continued to be rapid despite addition of p.o. metoprolol and electrolyte repletion Appreciate cardiology consultation Echocardiogram with severely reduced EF 15% With evidence of cirrhosis on imaging and elevated LFTs indicating chronic liver disease TSH normal Does have h/o heavy alcohol use Rates only slightly improved after starting sotalol -Loaded with digoxin and initially started on 0.125 mg once daily -PAWAN without thrombus on 01/16 -started sotalol and DC cardioversion performed on 01/18--> converted to NSR x 20 min, then flipped into atrial flutter at rate 160 where he has remained ever since -increased sotalol to 160mg po bid on evening of 01/19 -digoxin level checked 01/19 and low at 0.7--> reloaded again with digoxin 0.250 mg IV x 1 and increased daily dose to 250mcg po daily on 01/20 On 01/20, rates slowing down in A-flutter to 120-130s with very frequent PVCs, some runs of VT vs aberrancy ECG with prolonged QTc 500 on 8/15 -continue Eliquis -Continue monitoring telemetry -give 2 grams of IV Magnesium sulfate today, keep K and Mg at least at 4 and 2 -Continue to follow BMP magnesium in AM - Repeated DCCV on Thursday and held in sinus rhythm. Discharged on sotalol and Lasix PRN with follow up with Dr. Wu's office. (2) Atrial flutter with rapid ventricular response: as above (3) Acute systolic (congestive) heart failure: Several weeks of progressive orthopnea/dyspnea/LE edema, hypervolemic on exam, CXR with cardiomegaly, BNP 4963. Suspect acute CHF in context of uncontrolled a- fib. - TTE shows severely reduced EF 15% This may be tachyarrhythmia induced cardiomyopathy versus alcohol induced cardiomyopathy. No history of anginal symptoms so unlikely to be ischemic in nature although troponin mildly elevated TSH normal Diuresed very well with IV Lasix, weight is down 14 kg and edema is almost completely resolved -continue lasix 20mg po qAM -Follow BMP and magnesium and replete as needed -Continue low-sodium diet, fluid restrict 1800 mL/day -Daily weights -Rate and rhythm control as above and will need to reassess echocardiogram in 1 to 2 months - Discussed with Dr. Landeros on discharge day. Defer ACEi/ARB due to low BP after cardioversion. Hold any other AV cyn blocking agent given powerful effect of sotalol. After cardioversion, HR was in the 60s already. - Given appearance of euvolemia and hopeful return of LV function given his cardioversion, we moved Lasix to PRN dosing. 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 (4) Transaminitis: Per [facility] records from outpatient, patient's LFTs were normal one week ago. Now AST 101 and ALT 94 upon admission. Suspect hepatic congestion in setting of acute CHF, however he does have evidence of cirrhosis on right upper quadrant ultrasound liver Admits to significant alcohol use - RUQ US with cirrhosis noted but no blockage, there is a suggested adenomyomatosis of the gallbladder and a 9 mm indeterminate hypoechoic lesion of the right liver lobe which will need to be followed LFTs now normal after diuresis -Counseled to abstain from alcohol -He has had no signs of withdrawal here -Continue on thiamine and folic acid p.o. -Discontinued fenofibrate (5) Hypertension: Blood pressures are low normal at times but he is asymptomatic Held home lisinopril while titrating beta-cristopher. on sotalol now (6) Dyslipidemia: Discontinue fenofibrate to avoid further liver toxicity (7) Cirrhosis: As noted above Will need outpatient follow-up with GI Cessation from all alcohol is recommended (8) Elevated troponin: No chest pain and EKG with ST/T changes but Troponin elevated at 0.048 and was in rapid atrial fibrillation. Suspect demand ischemia in setting of a-fib with RVR and acute CHF. Troponin stable at 0.06x3 - SL Nitro PRN for chest pain - EKG PRN for chest pain At some point may need ischemic evaluation (9) Hyponatremia: Sodium 129 admission and now improved with diuresis to 137. Secondary to congestive heart failure and volume overload Continue diuresing with Lasix 20mg po daily - trend BMP daily (10) Mitral regurgitation: Moderate on echocardiogram, could be secondary to LV dysfunction versus volume overload Continue diuresis (11) Gout: No ongoing issues Recommend alcohol cessation (12) Cough: dry cough x 3 days, annoying Likely bronchospasm from sotalol vs. CHF. COVID neg on admission a few days ago, remains afebrile started guaifenesin DM prn if not improving or worsens, consider repeating COVID but if from sotalol, may need to consider changing to another antiarrhythmic (13) DVT prophylaxis: Eliquis Total Time Total Time Spent Total Time Spent (In Minutes): 35 Discharge Plan Discharge Items Patient Disposition: Home - Self-Care Reason For Visit: NEW A-FIB WITH RVR Discharge Diagnosis: Atrial fibrillation and atrial flutter Activity: Resume your previous activity Non-emergency contact: Primary Care Provider and [employer] Call non-emergency contact if: your symptoms worsen Follow-up/Referrals: Luis Felipe Wu, DO [Physician] - (Please return to Dr. Wu or Ms. Riley this week before your trip if able to make sure you are doing ok. Otherwise, see them as soon as you are back. DR PARKS OFFICE WILL CALL YOU WITH A FOLLOW UP APT.) PCP,NO [Primary Care Provider] - Diet: Heart Healthy Addtl Attending Provider Instructions: Mr. Recinos, You were admitted to the hospital with atrial fibrillation that stems from the top half of the heart firing too quickly and causing irregular beats. You were started on a medication that helped slow your heart rate down, and you were then cardioverted (shocked) which helped put your heart back into normal rhythm. We are sending you home with medication that is meant to help keep your heart in the normal sinus rhythm. We are also sending you home on a medication called Lasix (or furosemide) that will help get extra fluid off. Please check your weight when you get home. This should be considered your baseline weight. If you notice that you are gaining weight or starting to have swelling in your legs, please take the Lasix. This may correlate with salt intake, and you are planning a trip where your salt consumption may fluctuate. Please take the Lasix with you on the trip and make sure you maintain a steady weight. For now, STOP your metoprolol and your lisinopril. The metoprolol interacts with sotalol and can slow your heart too much. It is very important to stop this. The lisinopril is for blood pressure, and right now, your blood pressure is ok without it. Your PCP or support coordinator may restart this medication for you at a lower dose eventually. Pending Studies at Discharge: No Stand-Alone Forms: My [facility], Smoking Cessation Medications and DC Order Prescriptions: New sotalol 160 mg tablet 160 mg PO BID Qty: 60 RF: 0 furosemide 20 mg Tablet 20 mg PO QAM PRN (Reason: edema) Qty: 30 RF: 0 Continued prednisone 10 mg tablet 10 mg PO DAILY PRN (Reason: gout flare ups) RF: 0 Eliquis 5 mg tablet 5 mg PO BID RF: 0 fenofibrate nanocrystallized 145 mg tablet 145 mg PO DAILY RF: 0 Discontinued lisinopril 40 mg tablet 40 mg PO DAILY RF: 0 metoprolol tartrate 25 mg tablet 25 mg PO TID RF: 0 Discharge Orders: Discharge Order (Routine); Ordered 01/21/21 Ordered By: Baltazar Wolfe Admission Data Admit Date/Time: 01/14/21 18:33 Attending Provider: Baltazar Wolfe Admit Provider: Igor Lazcano Primary Care Provider: PCP,NO Other Providers: Luis Felipe Wu ; Soto Stewart ; Juan J Bustos ; Stu Mclean ; Genaro Landeros ; Jeffery Soto ; Arsen Ramires ; Humberto Shrestha Jr ; Diego Blanchard ; Kimberley Connell ; Cinthia Vega ; Soto Avalos ; Immanuel Carrasquillo ; Juanito Baltazar ; Rosalie Gonzales ; Jaime Hernandez ; Drew Payne ; David Bran ; Baltazar Wolfe Other Interventions: Discharge Summary Assessment (RN) Last Done: 01/21/21 14:50 Coding Level of Care Code D/C DAY MANAGEMENT >30 MINS Diagnoses Atrial fibrillation with rapid ventricular response I48.91 Atrial flutter with rapid ventricular response I48.92 Acute systolic (congestive) heart failure I50.21 Transaminitis R74.01 Hypertension I10 Dyslipidemia E78.5 Cirrhosis K74.60 Elevated troponin R77.8 Hyponatremia E87.1 Mitral regurgitation I34.0 Gout M10.9 Cough R05 DVT prophylaxis Z29.9
== END 2021-01-21 15:55 | disposition home or self-care (01) | DRG 308 ==
LOC: ED 12:41 → SUATTDRO 18:33 → 2S 18:33

== ENCOUNTER 2021-11-06 06:17 | Inpatient (IN) ==
--- NOTE | 2021-10-15 10:05 | PAT Medication Instructions ---
Medication Instructions Date of Service October 15, 2021 Home Medications Medication Instructions Recorded cyanocobalamin (vitamin B-12) 1,000 mcg SUBCUT .COMPLEX #8 ml 09/23/21 1,000 mcg/mL injection solution apixaban 5 mg tablet (Eliquis) 5 mg PO BID amiodarone 200 mg tablet 200 mg PO QAM furosemide 40 mg tablet (Lasix) 40 mg PO QAM potassium chloride 10 mEq capsule,extended release 10 meq PO QAM sildenafil 50 mg tablet 50 mg PO DAILY PRN aspirin 81 mg tablet,delayed release 81 mg PO QPM metoprolol succinate 50 mg tablet,extended release 24 hr 100 mg PO QAM rosuvastatin 10 mg tablet 10 mg PO QAM cyanocobalamin (vitamin B-12) 1,000 mcg/mL injection solution 1,000 mcg SUBCUT .COMPLEX cyanocobalamin (vitamin B-12) 1,000 mcg tablet (Vitamin B-12) 1,000 mcg PO HS sacubitril 97 mg-valsartan 103 mg tablet (Entresto) 1 tab PO BID vitamin E 400 unit tablet 400 mg PO HS ASK your prescriber and surgeon apixaban 5 mg tablet (Eliquis) 5 mg PO BID aspirin 81 mg tablet,delayed release 81 mg PO QPM STOP taking 2 weeks before surgery (or as soon as possible if surgery is within 2 weeks) vitamin E 400 unit tablet 400 mg PO HS DO NOT take the morning of surgery furosemide 40 mg tablet (Lasix) 40 mg PO QAM potassium chloride 10 mEq capsule,extended release 10 meq PO QAM sildenafil 50 mg tablet 50 mg PO DAILY PRN cyanocobalamin (vitamin B-12) 1,000 mcg/mL injection solution 1,000 mcg SUBCUT .COMPLEX sacubitril 97 mg-valsartan 103 mg tablet (Entresto) 1 tab PO BID Take morning of surgery With a small sip of water, OTHERWISE NOTHING TO EAT OR DRINK AFTER MIDNIGHT: amiodarone 200 mg tablet 200 mg PO QAM metoprolol succinate 50 mg tablet,extended release 24 hr 100 mg PO QAM rosuvastatin 10 mg tablet 10 mg PO QAM Take evening before surgery sildenafil 50 mg tablet 50 mg PO DAILY PRN (if needed) aspirin 81 mg tablet,delayed release 81 mg PO QPM cyanocobalamin (vitamin B-12) 1,000 mcg tablet (Vitamin B-12) 1,000 mcg PO HS sacubitril 97 mg-valsartan 103 mg tablet (Entresto) 1 tab PO BID Other Notes If you have any questions please call us at [phone] or [phone] or [phone] or [phone]
--- NOTE | 2021-10-17 11:31 | Anesthesiology Consultation ---
Date of Service October 17, 2021 Assessment & Plan (1) Encounter for pre-operative examination: - Awaiting surgeon-ordered cardiology preop evaluation (Dr. Wu; scheduled 10/18). - COVID screening: Per assessment on 10/17: No known COVID-19 positive contacts or current COVID-19 related symptoms. Travel screen negative. Patient vaccinated. Surgeon arranging preop COVID testing. Awaiting results. - S/P colonoscopy (07/16/21): MAC at [facility] - Eliquis/ASA per surgeon/prescriber Chart Review Chart Review: Patient seen in Pre Admission Testing Teaching & Discussion Pre-Anesthesia Teaching/Discussion Notes: Instructed NPO after midnight before surgery,except medications with 15 cc of water. Medication instructions provided according to the PAT guidelines. History Surgery Operation Date: 11/06/21 10:25 Proposed Procedures p C3-C5 Anterior Cervical Discectomy Fusion, C4 Corpectomy Spinal Cord Monitoring - Jorge Parrish, Height/Weight Height: 6 ft 1 in Weight: 105.3 kg Allergies Allergy/AdvReac Type Severity Reaction Status Date / Time No Known Allergies Allergy Verified 10/14/21 15:05 Medications Home Medications Medication Instructions Recorded Confirmed Last Taken apixaban 5 mg tablet (Eliquis) 5 mg PO BID 01/14/21 10/14/21 07/14/21 amiodarone 200 mg tablet 200 mg PO QAM 01/28/21 10/14/21 07/16/21 furosemide 40 mg tablet (Lasix) 40 mg PO QAM 01/28/21 10/14/21 07/16/21 potassium chloride 10 mEq 10 meq PO QAM 01/28/21 10/14/21 07/16/21 capsule,extended release sildenafil 50 mg tablet 50 mg PO DAILY PRN 03/11/21 10/14/21 Unknown aspirin 81 mg tablet,delayed 81 mg PO QPM 07/10/21 10/14/21 07/15/21 release metoprolol succinate 50 mg 100 mg PO QAM 07/10/21 10/14/21 07/16/21 tablet,extended release 24 hr rosuvastatin 10 mg tablet 10 mg PO QAM 07/10/21 10/14/21 07/16/21 cyanocobalamin (vitamin B-12) 1,000 mcg SUBCUT .COMPLEX #8 ml 09/23/21 10/14/21 Unknown 1,000 mcg/mL injection solution cyanocobalamin (vitamin B-12) 1,000 mcg PO HS 10/14/21 10/14/21 Unknown 1,000 mcg tablet (Vitamin B-12) sacubitril 97 mg-valsartan 103 mg 1 tab PO BID 10/14/21 10/14/21 Unknown tablet (Entresto) vitamin E 400 unit tablet 400 mg PO HS 10/14/21 10/14/21 Unknown Past Medical History Medical History Atrial fibrillation Follows with Dr. Wu, on Eliquis CAD (coronary artery disease) Per 03/2021 cardiac cath, "Recommend medical management of heavily calcified collateralized RCA and diffuse apical LAD, branch vessel disease. Continue GDMT, rhythm control per Dr. Wu." CHF (congestive heart failure) Dyslipidemia History of COVID-19 02/2021 Hx of gout Hypertension Nonischemic cardiomyopathy Osteoarthritis Exercise / Class Metabolic Activity II 4-5 Yardwork/Stairs/Walk up hill (one FS (no CP, no SOB)) Past Family History Family History Other No family history of adverse response to anesthesia Past Surgical History Surgical History History of cardiac cath 03/2021 (no stents) History of cardioversion x2 (most recent 01/2021) History of transesophageal echocardiography (PAWAN) Hx of bilateral cataract extraction Hx of colonoscopy Colonoscopy (07/16/21): MAC at [facility] Hx of esophagogastroduodenoscopy Hx of tonsillectomy Past Anesthesia History No Hx of Anesthesia Complications and No Family Hx of Anesthesia Complications History of PONV No Hx of PONV and No Hx of Motion Sickness Social History Smoking Status: Never smoker Do You Dip or Chew Tobacco: No Hx Alcohol Use: Yes Alcohol type: wine alcohol intake frequency: a few times a week Hx Substance Use: No substance use type: does not use Review of Systems Patient denies chest pain, shortness of breath, dyspnea on exertion, fever, chills, cough, wheezing, palpitations. Physical Exam Vital Signs VITALS BP 120/79 P 69 TEMP 98.9 SP02 97%RA RESP 16 PHYSICAL Full cervical extension range of motion. Full TMJ range of motion. TMD 3 finger breaths Mallampati Score 3 Dentition: intact, + several crowns Lungs: clear throughout to auscultation Cardiac: regular rate and rhythm, no murmurs noted Spine: normal Carotid arteries: negative bruit Extremities: no edema Lab Results Anesthesia Preop Results Results Anesthesia Widget: WBC 6.83 K/uL (4.8-10.8) 10/17/21 Hgb 13.9 g/dL (14.0-18.0) L 10/17/21 Hct 40.6 % (42-52) L 10/17/21 Plt 224 K/uL (130-400) 10/17/21 Na 136 mmol/L (136-145) 09/10/21 K 4.2 mmol/L (3.5-5.1) 09/10/21 Cl 103 mmol/L (98-107) 09/10/21 CO2 26 mmol/L (21-32) 09/10/21 BUN 23 mg/dl (6-23) 09/10/21 Creat 1.27 mg/dl (0.6-1.4) 09/10/21 Glucose Level 83 mg/dl (70-99(Fasting)) 09/10/21 PT 10.6 Seconds (9.0-12.0) 10/17/21 PTT 31.8 Seconds (21.0-31.0) H 10/17/21 INR 1.0 (0.9-1.1) 10/17/21 Urine Color Yellow 10/17/21 Urine Appearance Clear (Clear) 10/17/21 Urine pH 6.5 (4.5-7.5) 10/17/21 Urine Specific [place] 1.018 (1.000-1.030) 10/17/21 Urine Protein Negative (Negative) 10/17/21 Urine Glucose (UA) Negative (Negative) 10/17/21 Urine Ketones Negative (Negative) 10/17/21 Urine Blood Negative (Negative) 10/17/21 Urine Nitrite Negative (Negative) 10/17/21 Urine Bilirubin Negative (Negative) 10/17/21 Urine Urobilinogen Negative (Negative) 10/17/21 Urine Leukocyte Esterase Negative (Negative) 10/17/21 Blood Type O Positive 10/17/21 Antibody Screen NEGATIVE 10/17/21 Testing Electrocardiogram Date: 10/17/21 Normal sinus rhythm with sinus arrhythmia at 63 bpm. LAD. Unconfirmed report. Chest X-Ray Date: 01/14/21 FINDINGS: The cardiac silhouette is mildly enlarged. There is a tortuous thoracic aorta. No focal lung consolidations to suggest pneumonia. No evidence for pulmonary edema. No pleural effusions. No pneumothorax. Right retrocardiac linear density may represent a normal pulmonary vessel or subsegmental atelectasis. IMPRESSION: Mild cardiomegaly. Otherwise, no acute process within the chest. Echocardiogram Date: 01/24/21 EF 30%. Diffuse hypokinesis. Mild LVD. No concentric LVH. No significant valvular disease. Cardiac Catheterization Date: 03/11/21 Severe multivessel coronary artery disease Heavily calcified subtotal mid RCA occlusion with [id number] collaterals 95% diffuse apical LAD disease Small to medium D1 98% ostial 30% proximal ramus, 40% mid circumflex Normal left and right-sided filling pressures Normal pulmonary artery pressures Normal cardiac output Recommendations: LV dysfunction out of proportion to CAD, primarily secondary to nonischemic etiology. Recommend medical management of heavily calcified collateralized RCA and diffuse apical LAD, branch vessel disease. Continue GDMT, rhythm control per Dr. Wu.
[~2021-11-06 06:17] MED LIST: ACETAMINOPHEN 500 MG TAB PO SCH; CeleBREX 200 MG CAP PO SCH; GABAPENTIN 300 MG CAP PO SCH; LR 15ML/HR IV SCH; ceFAZolin 2000MG 2,000 MG/15 ML SYR IV SCH
[2021-11-06] MEDS ORDERED: LIDOCAINE 2% 2 ML VIAL/AMP(20MG/ML) INFIL ONE ×2 (06:55→06:59)
[2021-11-06] MEDS ORDERED: ONDANSETRON INJ 2 MG/ML 2 ML VIAL ONE (06:55)
[2021-11-06] MEDS ORDERED: PROPOFOL IV EMULSION 10 MG/ML 20 ML VIAL IV ONE (06:55)
[2021-11-06] MEDS ORDERED: DEXAMETHASONE SOD INJ 4 MG/ML VIAL ONE (06:55)
[2021-11-06] MEDS ORDERED: fentaNYL citrate 100 MCG/2 ML VIAL ONE (06:55)
[2021-11-06] MEDS ORDERED: SUCCINYLCHOLINE CHLORIDE 20 MG/ML 10 ML VIAL IV ONE (07:00)
[2021-11-06] MEDS ORDERED: ceFAZolin 330 MG/ML 1 GM VIAL ONE (07:05)
--- NOTE | 2021-11-06 07:29 | History & Physical Bridge Note ---
Date of Service November 06, 2021 History & Physical Bridge Note I have examined the patient, reviewed the History & Physical and in the interval since the performance of the History & Physical I have noted the following changes of clinical significance: no changes noted
--- NOTE | 2021-11-06 07:30 | History & Physical Report ---
Date of Service November 06, 2021 Assessment & Plan (1) Cervical radiculopathy: Plan: C3-C5 anterior cervical discectomy and fusion, C4 corpectomy History of Present Illness Chief Complaint: Neck and arm pain Primary Care Provider: Tia Linton DPM This is a 71-year-old male who presents with chronic persistent neck and arm pain after failing course of nonoperative care is here for surgical invention. Allergies Allergy/AdvReac Type Severity Reaction Status Date / Time No Known Allergies Allergy Verified 11/06/21 06:50 Home Medications Medication Instructions Recorded Confirmed Type apixaban 5 mg tablet (Eliquis) 5 mg PO BID 01/14/21 11/06/21 History amiodarone 200 mg tablet 200 mg PO QAM 01/28/21 11/06/21 History furosemide 40 mg tablet (Lasix) 40 mg PO QAM 01/28/21 11/06/21 History potassium chloride 10 mEq 10 meq PO QAM 01/28/21 11/06/21 History capsule,extended release sildenafil 50 mg tablet (Viagra) 50 mg PO DAILY PRN 03/11/21 11/06/21 History aspirin 81 mg tablet,delayed 81 mg PO QPM 07/10/21 11/06/21 History release metoprolol succinate 50 mg 100 mg PO QAM 07/10/21 11/06/21 History tablet,extended release 24 hr rosuvastatin 10 mg tablet 10 mg PO QAM 07/10/21 11/06/21 History cyanocobalamin (vitamin B-12) 1,000 mcg SUBCUT .COMPLEX #8 ml 09/23/21 11/06/21 Rx 1,000 mcg/mL injection solution cyanocobalamin (vitamin B-12) 1,000 mcg PO HS 10/14/21 11/06/21 History 1,000 mcg tablet (Vitamin B-12) sacubitril 97 mg-valsartan 103 mg 1 tab PO BID 10/14/21 11/06/21 History tablet (Entresto) vitamin E 400 unit tablet 400 mg PO HS 10/14/21 11/06/21 History Past Med/Surg History Medical History Atrial fibrillation Follows with Dr. Wu, on Eliquis CAD (coronary artery disease) Per 03/2021 cardiac cath, "Recommend medical management of heavily calcified collateralized RCA and diffuse apical LAD, branch vessel disease. Continue GDMT, rhythm control per Dr. Wu." CHF (congestive heart failure) Dyslipidemia History of COVID-19 02/2021 Hx of gout Hypertension Nonischemic cardiomyopathy Osteoarthritis Surgical History History of cardiac cath 03/2021 (no stents) History of cardioversion x2 (most recent 01/2021) History of transesophageal echocardiography (PAWAN) Hx of bilateral cataract extraction Hx of colonoscopy Colonoscopy (07/16/21): MAC at [facility] Hx of esophagogastroduodenoscopy Hx of tonsillectomy Family History Other No family history of adverse response to anesthesia Social History Smoking Status: Never smoker Second Hand Exposure: No; Do You Dip or Chew Tobacco: No; Tobacco Cessation Education Requested by Patient: No Hx Alcohol Use: Yes Alcohol type: wine Hx Substance Use: No Preferred Language: Icelandic Communication Ability: Effective Geothermal Technician Required: No Beliefs That Will Affect Care: None Current Living Situation: Alone Current Living Situation Comment: girlfriend (long distance) she is not local Other Information That Helps Us Care for You: No Feels Safe at Home: Yes Safety Concerns: Feels Safe At This Time Assistive Devices: Cane Physical Exam Physical Exam: Patient is alert and oriented Heart regular in rhythm Lungs clear Results & Data Results & Data ([facility]) Vital Signs (Past 12 Hours) Vital Signs Temp Pulse Resp BP Pulse Ox 11/06/21 06:54 36.8 C 73 20 144/94 H 96
[2021-11-06] MEDS ORDERED: ePHEDrine sulfate 50 MG/ML AMP IV PRN (07:43)
[2021-11-06] MEDS ORDERED: fentaNYL citrate 100 MCG/2 ML VIAL IV PRN (07:43)
[2021-11-06] MEDS ORDERED: ATROPINE SULFATE 0.1 MG/ML 10ML SYR IV PRN (07:43)
[2021-11-06] MEDS ORDERED: ONDANSETRON INJ 2 MG/ML 2 ML VIAL IV PRN ×2 (07:43→11:34)
[2021-11-06] MEDS ORDERED: PROMETHAZINE HCL 6.25 MG in SODIUM CHLORIDE 0.9% 50 ML IV PRN (07:43)
[2021-11-06] MEDS ORDERED: HYDROmorphone INJ 2 MG/ML SYR/VIAL ONE (08:10)
[2021-11-06] MEDS ORDERED: ROCURONIUM BROMIDE 10 MG/ML 5 ML VIAL IV ONE (08:45)
[2021-11-06] MEDS ORDERED: FLOSEAL HEMOSTATIC MATRIX 10ML TOP ONE (09:40)
[2021-11-06] MEDS ORDERED: NEOSTIGMINE METHYLSULFATE 1 MG/ML 10ML VIAL ONE (09:45)
[2021-11-06] MEDS ORDERED: GLYCOPYRROLATE 0.2 MG/ML VIAL ONE (09:45)
--- NOTE | 2021-11-06 09:53 | Operative Report ---
Post Operative Report Pre & Post Diagnosis Operation Date: 11/06/21 07:45 Pre-Op Diagnosis: Cervical spinal stenosis with myelopathy Post-Op Diagnosis: Same I identified the patient and participated in the time-out.: Yes Procedure Operation Date: 11/06/21 07:45 Actual Procedures #1 anterior cervical corpectomy with bilateral foraminotomies C4. #2 anterior cervical arthrodesis C3-C5. #3 placement of 25 mm peek cage C3-C5. #4 placement of locally harvested morselized autograft about the affected interbody cage. #5 application 5 complete and screws from C3-C5. Surgeon Jorge Parrish, Ballistician Daniela López Estimated Blood Loss 20 Findings Consistent with Post-Op Diagnosis Specimens None Indications This is a 71-year-old male who presents with progressive myelopathy is here for surgical intervention. Description of Procedure Patient was met with identified informed consent obtained. Patient was then taken to the operative suite underwent ablation placed in spine position injectable head [place] librarian head. All bony prominences well-padded eyes inspected to ensure no external pressure placed upon the. This point the anterior cervical spine was prepped and draped in a sterile fashion. The assistance of fluoroscopy identified the C for vertebral body and a transverse incision was placed along the right anterior aspect of the cervical spine overlying his region. Blunt dissection with the assistance of bipolar electrocautery performed down to and exposing anterior cervical spine from C3- C5. Several 10 retractors placed. Then performed a complete discectomy of C3- C4 out to the uncovertebral joints bilaterally followed by C for C5. [place] distraction pins were then placed in C3 and C5 to distract across the C4 vertebral body. I then performed a complete corpectomy of C4 including removal of all posterior annular fibers longitudinal ligament bilateral foraminotomies performed for complete decompression. Endplates then burred to subcortical being bone and a 25 mm peek cage filled with locally harvested morselized autograft and I factor tapped in position. Distracting apparatus was removed and a 5 complete and screws applied with the assistance of fluoroscopy. The incision was then copiously irrigated explored to ensure no damage to surrounding structures remaining bleeding. 10 round MARGUERITE drain inserted. The incision was then closed with 2 Vicryl in a fashion of 4 Monocryl for final skin closure. Steri-Strip sterile dressings placed. Patient waken taken PACU stable condition. Please note spinal cord monitoring visualized at the procedure no changes noted. Lastly Daniela López was present at the entire surgery involved the patient positioning complex portions of the surgery and final skin closure. I attest to the content of the Intraoperative Record and any orders documented therein. Any exceptions are noted below.
--- NOTE | 2021-11-06 10:30 | Fluoroscopy Report ---
FL cervical 2-3V CLINICAL HISTORY: C3-C5 ACDF/C4 CORPECTOMY COMPARISON STUDY: Cervical spine MRI September 20, 2021. FLUOROSCOPY TIME: 9 seconds. FLUOROSCOPIC IMAGES: 2 FINDINGS: Fluoroscopy was provided during C4 corpectomy and C3-C5 anterior discectomy and fusion. Kris dware is intact. Surgical drain is noted. Endotracheal tube is partially imaged. IMPRESSION: Fluoroscopy provided during C4 corpectomy and C3-C5 anterior discectomy and fusion. ACT 112: Negative or not required by law. Electronically signed by: Vin Cortez M.D. 11/06/2021 10:29 AM
--- NOTE | 2021-11-06 11:25 | Anesthesiology Progress Note ---
Date of Service November 06, 2021 Anesthesia Post Procedure Vital Signs Vital Signs: Temp Pulse Resp BP Pulse Ox 11/06/21 11:20 61 23 136/83 96 11/06/21 11:10 36.1 C L 64 22 134/85 97 11/06/21 11:00 70 22 143/89 H 98 11/06/21 10:50 74 21 138/89 98 11/06/21 10:40 36.3 C L 66 19 140/84 97 11/06/21 10:30 67 20 140/87 98 11/06/21 10:20 66 18 140/90 100 11/06/21 10:10 72 18 134/86 100 11/06/21 10:02 36.3 C L 69 20 137/84 99 11/06/21 06:54 36.8 C 73 20 144/94 H 96 Transfer of Care Handoff Completed per policy Notes Mental Status: alert / awake / arousable Patient Amnestic to Procedure: Yes Nausea / Vomiting: adequately controlled Pain: adequately controlled Airway Patency, RR, SpO2: stable & adequate BP & HR: stable & adequate Hydration State: stable & adequate Anesthetic Complications: no major complications apparent
[2021-11-06] MEDS ORDERED: diphenhydrAMINE Capsule 25 MG CAP PO PRN (11:34)
[2021-11-06] MEDS ORDERED: bisacodyL 10 MG SUPP PR PRN (11:34)
[2021-11-06] MEDS ORDERED: DO NOT ADMINISTER FLU VACCINE PRN (11:34)
[2021-11-06] MEDS ORDERED: RACEPINEPHRINE 2.25% NEBU SOLN 0.5 ML VIAL INH PRN (11:34)
[2021-11-06] MEDS ORDERED: LORazepam 2 MG/1 ML VIAL IV PRN (11:34)
[2021-11-06] MEDS ORDERED: SOD PHOSPHATE/SOD BIPHOSPHATE ENEMA 132 ML BTL PR PRN (11:34)
[2021-11-06] MEDS ORDERED: DO NOT ADMINISTER PNEUMOCOCCAL VACCINE PRN (11:34)
[2021-11-06] MEDS ORDERED: ALUMINUM/MAGNESIUM SUSP 30 ML UDC PO PRN (11:34)
[2021-11-06] MEDS ORDERED: LORazepam 0.5 MG TAB PO PRN (11:34)
[2021-11-06] MEDS ORDERED: dexAMETHasone 8 MG in SYRINGE 0 ML IV PRN (11:34)
[2021-11-06] MEDS ORDERED: PROMETHAZINE HCL 12.5 MG in SODIUM CHLORIDE 0.9% 50 ML IV PRN (11:34)
[2021-11-06] MEDS ORDERED: HYDROmorphone INJ 0.5 MG/0.5 ML SYR IV PRN (11:34)
[2021-11-06] MEDS ORDERED: ACETAMINOPHEN 500 MG TAB PO PRN (11:34)
[2021-11-06] MEDS ORDERED: FAMOTIDINE 20 MG TAB PO PRN (11:34)
[2021-11-06] MEDS ORDERED: MAGNESIUM HYDROXIDE SUSP 30 ML UDC PO PRN (11:34)
[2021-11-06] MEDS ORDERED: NALOXONE HCL 0.4 MG/1 ML VIAL/CARP IV PRN (11:34)
[2021-11-06] MEDS ORDERED: ONDANSETRON 4 MG OD TAB PO PRN (11:34)
[2021-11-06] MEDS ORDERED: ACETAMINOPHEN 1,000 MG/100 ML VIAL IV PRN (11:34)
[2021-11-06] MEDS ORDERED: hydrOXYzine HCl 25 MG TAB PO PRN (11:34)
[2021-11-06] MEDS ORDERED: traMADol HCL 50 MG TABLET PO PRN (11:34)
[2021-11-06] MEDS ORDERED: HYDROmorphone INJ 1 MG/ML SYRINGE IV PRN (11:34)
[2021-11-06] MEDS ORDERED: METOCLOPRAMIDE HCL INJ 5 MG/ML 2 ML VIAL IV PRN (11:34)
[2021-11-06] MEDS: oxyCODONE HCL IR 5 MG TAB (IMMEDIATE RELEASE) PO PRN (12:47)
[2021-11-06] MEDS: LACTATED RINGER'S 1,000 ML IV SCH ×2 (16:10→21:06)
--- NOTE | 2021-11-06 17:51 | Hospitalist Progress Note ---
Date of Service November 06, 2021 Assessment & Plan (1) Atrial fibrillation with rapid ventricular response: Plan: rate now controlled, anticoagulation on hold until OK w ortho (2) Cardiomyopathy: Plan: continue entresto. appears euvolemic (3) B12 deficiency: Plan: on IM replacement. (4) Cervical radiculopathy: Plan: post op - per orthopedics (5) DVT prophylaxis: Plan: per orthopedics Admission and Anticipated Discharge Date Admission Date: November 06, 2021 Subjective feeling good post op. notes that he's really pretty much never had heart symptoms that he's aware of - that everything came up with his cardiac hx because of a vital sign check showing fast heart. notes that he saw dr cain preop and all was OK to proceed w surgery. no significant post op pain. no cp no sob Review of Systems Review of Systems: All systems reviewed & are unremarkable except as noted in HPI & below Physical Exam Physical Exam: gen aaox3 pleasant nad heent nc at mmm cardio sounds reg definitely rate controlled, lungs cta b/l no r/r/w unlabored no accessory muscles good effort skin no rashes no pallor or icterus neck w incision dressed, drain w serosanguanous fluid Results & Data Results & Data ([facility]) Vital Signs (Past 12 Hours) Vital Signs Temp Pulse Pulse Resp BP BP Pulse Ox 11/06/21 15:45 97.7 F 70 18 133/68 96 11/06/21 15:40 68 16 97 11/06/21 15:05 76 20 112/76 97 11/06/21 14:05 97.5 F L 70 12 126/70 96 11/06/21 13:05 79 19 118/79 97 11/06/21 12:35 86 20 113/70 97 11/06/21 12:05 97.2 F L 74 21 141/79 H 96 11/06/21 11:50 74 16 142/91 H 97 11/06/21 11:35 66 20 126/83 97 11/06/21 11:20 61 23 136/83 96 11/06/21 11:10 97.0 F L 64 22 134/85 97 11/06/21 11:00 70 22 143/89 H 98 11/06/21 10:50 74 21 138/89 98 11/06/21 10:40 97.3 F L 66 19 140/84 97 06/01/22 10:30 67 20 140/87 98 11/06/21 10:20 66 18 140/90 100 11/06/21 10:10 72 18 134/86 100 11/06/21 10:02 97.3 F L 69 20 137/84 99 11/06/21 06:54 98.2 F 73 20 144/94 H 96 PG Care Time/CCT Total # of Minutes Spent Total Time Spent with Patient: Total time spent is greater than 50% in coordination of care (as documented) at patient's floor/unit and/or counseling patient: Coding Level of Care Code 04137 Subseq Hosp Care Lvl 2 Diagnoses Atrial fibrillation with rapid ventricular response I48.91 Cardiomyopathy I42.9 B12 deficiency E53.8 Cervical radiculopathy M54.12 DVT prophylaxis Z29.9
[2021-11-06] MEDS: ceFAZolin 2000MG 2,000 MG/15 ML SYR IV SCH (17:52)
[2021-11-06] MEDS: dexAMETHasone 6 MG in SYRINGE 0 ML IV SCH (17:52)
[2021-11-06] MEDS ORDERED: ASPIRIN 81 MG ECTAB PO SCH (21:00)
[2021-11-06] MEDS ORDERED: CYANOCOBALAMIN (B-12) 500 MCG TABLET PO SCH (21:00)
[2021-11-06] MEDS ORDERED: DOCUSATE SODIUM/SENNA 50/8.6MG TAB PO SCH (21:00)
[2021-11-06] MEDS: VALSARTAN/SACUBITRIL 103/97MG TAB PO SCH (21:14)
[2021-11-07] MEDS: dexAMETHasone 6 MG in SYRINGE 0 ML IV SCH ×2 (01:23→08:19)
[2021-11-07] MEDS: ceFAZolin 2000MG 2,000 MG/15 ML SYR IV SCH (01:23)
[2021-11-07] MEDS: LACTATED RINGER'S 1,000 ML IV SCH ×2 (04:23→08:18)
[2021-11-07] MEDS: POLYETHYLENE (MIRALAX) 17 GM PACK PO SCH ×2 (05:06→11:44)
[2021-11-07] MEDS: VALSARTAN/SACUBITRIL 103/97MG TAB PO SCH (08:12)
--- NOTE | 2021-11-07 08:12 | Discharge Summary ---
Date of Service November 07, 2021 Admission HPI Per Admitting Provider This is a 71-year-old male who presents with chronic persistent neck and arm pain after failing course of nonoperative care is here for surgical invention. Principal Diagnosis Cervical myelopathy Discharge Data Allergies Allergy/AdvReac Type Severity Reaction Status Date / Time No Known Allergies Allergy Verified 11/06/21 06:50 Consultations 11/06/21 11:34 Consult Hospitalist Routine Procedures Performed Operation Date: 11/06/21 07:45 Actual Procedures p C3-C5 Anterior Cervical Discectomy Fusion, C4 Corpectomy, Spinal Cord Monitoring(Not Applicable) - Jorge Parrish DO Ordered Studies 11/06/21 07:45 FL cervical 2-3V Routine Hospital Course (1) Cervical myelopathy: Patient underwent anterior cervical corpectomy and fusion tolerated this well was taken orthopedic for postoperative. Postop day 1 he was swallowing well. No hoarseness. Good strength testing. MARGUERITE drain decreasing probably. Separately discharged home. Discharge orders and instructions found in chart for further review. Total Time Total Time Spent Total Time Spent (In Minutes): 20 minutes Discharge Plan Discharge Items Patient Disposition: Home - Self-Care Reason For Visit: Spinal Stenosis, Cervical Region Discharge Diagnosis: Cervical spinal stenosis with myelopathy Activity: As commented below Non-emergency contact: Primary Care Provider Call non-emergency contact if: you have any medication questions Follow-up/Referrals: Unknown,Unknown [Primary Care Provider] - Diet: Regular Addtl Attending Provider Instructions: ACTIVITY RECOMMENDATIONS: SELF CARE INSTRUCTIONS AFTER CERVICAL FUSIONS 1. No smoking. Smoking drastically decreases the chance of a solid fusion. 2. No bending, lifting more than 5 pounds, or twisting (roll like a log when turning in bed). 3. You may shower 3 days after surgery. Thoroughly dry wound. Do not soak in the tub. 4. Cervical collar: Must be worn at all times including sleeping. You may remove the brace only to bath, eat and if you are sitting in a recliner. 5. Please walk as much as you can for exercise. Gradually increase the distance that you walk as your endurance increases. SPECIAL CARE INSTRUCTIONS: VERY IMPORTANT TO READ AND REVIEW A. Do not take any anti-inflammatory medications (i.e. Indocin, Advil, Aspirin, Naprosyn, Aleve, Motrin, etc.) as these may inhibit the chance of a solid fusion. Tylenol is okay to take. B. Your surgical incision has been closed with a cosmetic suture under the skin that will dissolve in about 6 weeks. In 14 days, you can use a pair of clean scissors and cut the suture that is left outside of the skin at the ends of your incision. C. Complications are uncommon, but please contact us if you have any signs or symptoms of: 1. wound infection (fever higher than 102.5 degrees F, redness, separation of wound, drainage, or increasing pain from the incision) 2. blood clots in legs (pain, swelling, redness and warmth in legs) 3. urinary tract infection (fever higher than 102.5 degrees, burning upon urination or increased frequency of urination) 4. nerve problems (inability to walk on your toes or heels, numbness, loss of bowel or bladder control) 5. any other symptoms that concern you. D. Please call the office at if you have any concerns or questions about your operation or recovery. MANAGING PAIN AFTER SPINAL SURGERY 1. Narcotic medication is intended for short-term use and will be provided for surgical pain. Surgical pain usually lasts for a period of 4-6 weeks. Narcotic medication includes Percocet, Vicodin, Darvocet, Tylenol #3 or Lortab. 2. Longer-term pain is more appropriately treated with non-narcotic medication such as Tylenol ES. 3. Muscle spasm is not appropriately treated with narcotics. Muscle relaxers such as Soma, Flexeril or Skelaxin can be used along with Tylenol ES. 4. Remember that we all live with some "aches and pains". This is not unusual or uncommon after an injury or as we get older. 5. We will provide appropriate medication within the normal guidelines of their prescribed use. We will also be very cautious and aware of potential abuse and extended duration of patients' medication needs. 6. Please allow 2-3 days to process refills. Prescriptions will not be mailed but must be picked up at the office. FOLLOW UP VISIT: Keep your scheduled follow-up appointment. Any questions, please call the office at . Pending Studies at Discharge: No Stand-Alone Forms: My [employer], Smoking Cessation Medications and DC Order Prescriptions: New tramadol 50 mg tablet 50 mg PO Q6H PRN (Reason: pain, moderate) Qty: 20 RF: 0 oxycodone 5 mg tablet 5 mg PO Q6H PRN (Reason: pain, severe) Qty: 20 RF: 0 Continued cyanocobalamin (vitamin B-12) 1,000 mcg/mL solution 1,000 mcg subcut .COMPLEX Qty: 8 RF: 0 furosemide [Lasix] 40 mg Tablet 40 mg PO QAM RF: 0 potassium chloride 10 mEq Capsule, Extended Release 10 meq PO QAM RF: 0 amiodarone 200 mg Tablet 200 mg PO QAM RF: 0 sildenafil [Viagra] 50 mg Tablet 50 mg PO DAILY PRN (Reason: Erectile Dysfunction) RF: 0 metoprolol succinate 50 mg Tablet Extended Release 24 Hr 100 mg PO QAM RF: 0 aspirin 81 mg Tablet,Delayed Release (Dr/Ec) 81 mg PO QPM RF: 0 rosuvastatin 10 mg Tablet 10 mg PO QAM RF: 0 cyanocobalamin (vitamin B-12) [Vitamin B-12] 1,000 mcg Tablet 1,000 mcg PO HS RF: 0 vitamin E 400 unit Tablet 400 mg PO HS RF: 0 Entresto 97-103 mg Tablet 1 tab PO BID RF: 0 Discontinued Eliquis 5 mg tablet 5 mg PO BID RF: 0 Discharge Orders: Discharge Order (Routine); Ordered 11/07/21 Ordered By: Jorge Parrish Admission Data Admit Date/Time: 11/06/21 09:56 Attending Provider: Jorge Parrish Admit Provider: Jorge Parrish Primary Care Provider: Unknown,Unknown Other Providers: Baltazar Wolfe
[2021-11-07] MEDS ORDERED: POTASSIUM CHLORIDE 10 MEQ TABCR PO SCH (09:00)
[2021-11-07] MEDS ORDERED: FUROSEMIDE 40 MG TAB PO SCH (09:00)
[2021-11-07] MEDS ORDERED: AMIODARONE 200 MG TAB PO SCH (09:00)
[2021-11-07] MEDS ORDERED: ROSUVASTATIN CALCIUM 10 MG TAB PO SCH (09:00)
[2021-11-07] MEDS ORDERED: METOPROLOL SUCC 50MG EXT REL TAB PO SCH (09:00)
[2021-11-07 09:28] LABS: BUN Creatinine Ratio 15.2 (10-20); Calcium 9.4 mg/dl (8.5-10.1); Creatinine Clr Calc Pharmacy 112.1 ml/min; Est GFR (African American) 106.2 ml/min; Est GFR (Non-African American) 91.6 ml/min; Potassium 4.3 mmol/L (3.5-5.1)
[2021-11-07 09:32] LABS: Hematocrit (blood only) 40.5 % (42-52); Hemoglobin 13.4 g/dL (14.0-18.0); Immature Granulocytes # (auto) 0.03 K/uL (0.00-0.02); Immature Granulocytes % (auto) 0.3 %; Lymphocytes # (auto) 1.31 K/uL (1.2-3.4); Lymphocytes % (auto) 13.6 %; Mean Corpuscular Hemoglobin 34.1 pg (25-34); Mean Corpuscular Hgb Conc 33.1 g/dL (32-36); Mean Corpuscular Volume 103.1 fL (80-100); Mean Platelet Volume 11.1 fL (7.4-10.4); Monocytes # (auto) 0.69 K/uL (0.11-0.59); Monocytes % (auto) 7.1 %; Neutrophils # (auto) 7.63 K/uL (1.4-6.5); Platelet Count 227 K/uL (130-400); RDW Coefficient of Variation 12.6 % (11.5-14.5); Red Blood Count 3.93 M/uL (4.7-6.1); White Blood Count 9.66 K/uL (4.8-10.8)
[2021-11-07] MEDS: oxyCODONE HCL IR 5 MG TAB (IMMEDIATE RELEASE) PO PRN (11:44)
--- NOTE | 2021-11-07 14:35 | Communication Note ---
Date of Service: November 07, 2021 Ok for discharge from our standpoint. Will hold Eliquis until Thursday at Dr. Parrish's request which is very low risk from CVA standpoint.
== END 2021-11-07 14:30 | disposition home or self-care (01) | DRG 472 ==
LOC: ASU 06:17 → PACUINP 09:56 → 3E 16:05

== ENCOUNTER 2021-11-18 14:18 | Inpatient (IN) ==
[2021-11-18] MEDS ORDERED: SODIUM CHLORIDE 0.9% 500 ML IV SCH (15:15)
--- NOTE | 2021-11-18 15:17 | Emergency Department Note ---
Impression & Plan Weakness, Leukocytosis, Rhabdomyolysis, Acute hyponatremia, Dehydration, H/O cervical spine surgery ED Provider Note NAME: RITU PEÑA AGE: 71 SEX: M : 1950 ARRIVES VIA: Ambulance INFORMANT: [Patient] ED PROVIDER(S): [Wil Farrell MD] CHIEF COMPLAINT: Fall HISTORY OF PRESENT ILLNESS: The patient is a 71-year-old male who presents to the ER after being found on the floor. He has been down for about 12 hours lying face first. His legs gave out. He has felt weak for a few days and then, his legs gave out last evening. The patient complains of mild neck pain although, the pain has been present ever since his surgery about a week and a half ago. The patient has not had fever, no cough or congestion or shortness of breath. No vomiting or diarrhea. He denies any injury from his fall last evening. The patient has noticed that he has been more weak for a few days, he noticed some coordination issues as well, even with his arms. He thinks this is why he fell last evening Of note, he is on Eliquis for A. fib. REVIEW OF SYSTEMS: See HPI for pertinent positives and negatives. A total of ten systems were reviewed and were otherwise negative. PMHx/PSHx: See Below SOCIAL HISTORY: See Below. PHYSICAL EXAM: GENERAL: Patient is in no acute distress. HEENT: There are some abrasions to the patient's lips, no lacerations requiring repair. There is some generalized facial edema present. Mucous membranes are dry. NECK: No stridor, no adenopathy, stiff collar in place. LUNGS: Clear to auscultation bilaterally, no wheeze, no rhonchi, breath sounds equal. HEART: Without murmurs gallops or rubs, regular rate and rhythm. ABDOMEN: Soft, nontender, bowel sounds positive, no peritonitis. EXTREMITIES: No cyanosis or edema, full range of motion of all the joints without pain or difficulty. Extremity abrasions noted, no lacerations requiring repair. NEUROLOGIC: Oriented x 3, no acute motor or sensory deficits, no focal weakness. SKIN: No rash, no jaundice, no diaphoresis. DIFFERENTIAL DIAGNOSIS: Infection, dehydration, metabolic abnormality, hypo/hyperglycemia, electrolyte disturbance, anemia, hypoxia, cardiac sources, intracerebral event, toxicologic issues, stroke, TIA, cervical cord compression, epidural hematoma, as well as other pathologies. EMERGENCY DEPARTMENT COURSE/PROCEDURES: ECG: Indication was weakness. The ECG shows a normal sinus rhythm with a rate of 95. There is an incomplete right bundle branch block. There is some nonspecific ST change. There is no ST elevation. QTc is 462. Continuous Cardiac Monitoring: An order was placed for continuous cardiac monitoring. The monitor shows a rate of 87 with normal sinus rhythm. Critical Care Note: I have personally spent 45 minutes of critical care time in the direct management of this patient. This includes bedside care, interpretation of diagnostic studies, and testing, discussion with consultants, patient, and family members, and other required patient management activities. This 45 minutes is in excess of all separately billable procedures. MEDICAL DECISION MAKING: There is a significant leukocytosis at 22,000, this could be consistent with infection or the stress of his fall and current situation. No anemia. There was a normal platelet count. No worrisome coagulopathy. Sodium was low at 130. No renal failure. No concerning liver enzyme elevation. Lactic acid level was somewhat elevated, this could be consistent with dehydration or infection. Total CK was elevated at around 800, this is consistent with some mild rhabdomyolysis. ECG showed a normal sinus rhythm, no ischemia. Cardiac enzyme testing x1 is not not consistent with acute cardiac injury. The patient appeared to be in a euthyroid state. Urinalysis did not show obvious infection. COVID test returned negative. Chest x-ray did not show pneumonia or CHF. MRI of the cervical spine showed recent surgery, there was some stenosis which had been noted before. There was no hematoma compressing the cervical cord. I did speak with Dr. Parrish of spinal surgery. He did review the patient's MRI results. The patient does not need emergent surgical intervention. The patient should be hospitalized for his weakness and other issues and can be seen tomorrow by the spinal surgical team. The patient received IV saline, 1.5 L. He was given IV labetalol for his higher blood pressure. He received IV cefepime as antibiotic coverage. The patient is aware of his findings and results. He knows the need to stay in the hospital. I did speak with the patient at length over his findings, I spoke with case management. The on-call hospitalist was consulted. Past Med/Surg History Medical History Atrial fibrillation Follows with Dr. Wu, on Eliquis CAD (coronary artery disease) Per 03/2021 cardiac cath, "Recommend medical management of heavily calcified collateralized RCA and diffuse apical LAD, branch vessel disease. Continue GDMT, rhythm control per Dr. Wu." CHF (congestive heart failure) Dyslipidemia History of COVID-19 02/2021 Hx of gout Hypertension Nonischemic cardiomyopathy Osteoarthritis Surgical History (Updated 11/18/21 @ 22:16 by Wil Farrell MD) History of cardiac cath 03/2021 (no stents) History of cardioversion x2 (most recent 01/2021) History of transesophageal echocardiography (PAWAN) Hx of bilateral cataract extraction Hx of colonoscopy Colonoscopy (07/16/21): MAC at [facility] Hx of esophagogastroduodenoscopy Hx of tonsillectomy Family History Other No family history of adverse response to anesthesia Social History Smoking Status: Never smoker Second Hand Exposure: No; Hx Alcohol Use: Yes Alcohol type: wine Hx Substance Use: No Preferred Language: Russian Communication Ability: Effective Textile Examiner Required: No Beliefs That Will Affect Care: None Current Living Situation: Alone Current Living Situation Comment: girlfriend (long distance) she is not local Feels Safe at Home: Yes Assistive Devices: Cane Allergies Allergies Allergy/AdvReac Type Severity Reaction Status Date / Time No Known Allergies Allergy Verified 11/18/21 17:43 Home Meds Home Medications Medication Instructions Recorded Confirmed amiodarone 200 mg tablet 200 mg PO QAM 01/28/21 11/18/21 furosemide 40 mg tablet (Lasix) 40 mg PO QAM 01/28/21 11/18/21 potassium chloride 10 mEq 10 meq PO QAM 01/28/21 11/18/21 capsule,extended release sildenafil 50 mg tablet (Viagra) 50 mg PO DAILY PRN 03/11/21 11/18/21 aspirin 81 mg tablet,delayed 81 mg PO QPM 07/10/21 11/18/21 release metoprolol succinate 50 mg 100 mg PO QAM 07/10/21 11/18/21 tablet,extended release 24 hr rosuvastatin 10 mg tablet 10 mg PO QAM 07/10/21 11/18/21 cyanocobalamin (vitamin B-12) 1,000 mcg PO HS 10/14/21 11/18/21 1,000 mcg tablet (Vitamin B-12) sacubitril 97 mg-valsartan 103 mg 1 tab PO BID 10/14/21 11/18/21 tablet (Entresto) vitamin E 400 unit capsule 400 unit PO HS 11/18/21 11/18/21 Previous Rx's Medication Instructions Recorded cyanocobalamin (vitamin B-12) 1,000 mcg SUBCUT .COMPLEX #8 ml 09/23/21 1,000 mcg/mL injection solution oxycodone 5 mg tablet 5 mg PO Q6H PRN #20 tab 11/06/21 tramadol 50 mg tablet 50 mg PO Q6H PRN #20 tab 11/06/21 Results & Data (ED) Vital Signs Vital Signs - 24 hr 11/18/21 14:27 11/18/21 14:30 11/18/21 15:00 Temperature 37.3 C Temperature Source Oral Pulse Rate 89 87 96 H Pulse Rate [Left] Pulse Rate from SpO2 Sensor 89 87 98 H Respiratory Rate 22 19 23 Blood Pressure 146/99 H 144/107 H Blood Pressure [Left Arm] Blood Pressure Mean 114 119 Blood Pressure Mean [Left Arm] Blood Pressure Position Lying Blood Pressure Position [Left Arm] Pulse Oximetry 100 99 98 Oxygen Delivery Method Sepsis Recent Fever Within 48 Hours No Sepsis New/Unexplained Change in Mental Status No Sepsis Action Taken by Nursing No Action Required 11/18/21 15:30 11/18/21 16:00 11/18/21 16:30 Temperature Temperature Source Pulse Rate 93 H 95 H 99 H Pulse Rate [Left] Pulse Rate from SpO2 Sensor 90 Respiratory Rate 21 23 24 Blood Pressure 156/98 H Blood Pressure [Left Arm] Blood Pressure Mean 117 Blood Pressure Mean [Left Arm] Blood Pressure Position Blood Pressure Position [Left Arm] Pulse Oximetry 97 Oxygen Delivery Method Sepsis Recent Fever Within 48 Hours Sepsis New/Unexplained Change in Mental Status Sepsis Action Taken by Nursing 11/18/21 17:00 11/18/21 18:21 11/18/21 18:30 Temperature Temperature Source Pulse Rate 99 H 101 H 101 H Pulse Rate [Left] Pulse Rate from SpO2 Sensor 99 H 101 H Respiratory Rate 20 22 Blood Pressure 169/112 H 173/105 H Blood Pressure [Left Arm] Blood Pressure Mean 131 127 Blood Pressure Mean [Left Arm] Blood Pressure Position Blood Pressure Position [Left Arm] Pulse Oximetry 99 98 Oxygen Delivery Method Sepsis Recent Fever Within 48 Hours Sepsis New/Unexplained Change in Mental Status Sepsis Action Taken by Nursing 11/18/21 19:08 Temperature Temperature Source Pulse Rate Pulse Rate [Left] 86 Pulse Rate from SpO2 Sensor Respiratory Rate 20 Blood Pressure Blood Pressure [Left Arm] 140/95 Blood Pressure Mean Blood Pressure Mean [Left Arm] 110 Blood Pressure Position Blood Pressure Position [Left Arm] Sitting Pulse Oximetry 97 Oxygen Delivery Method Room Air Sepsis Recent Fever Within 48 Hours Sepsis New/Unexplained Change in Mental Status Sepsis Action Taken by Usp Medications Current Medication List: was personally reviewed by me Laboratory Data Attestation: I reviewed the patient's lab results. Result diagrams: 11/18/21 15:10 11/18/21 16:15 Lab Results 11/18/21 11/18/21 11/18/21 Range/Units 15:10 15:10 15:10 WBC 22.40 H (4.8-10.8) K/uL RBC 4.27 L (4.7-6.1) M/uL Hgb 14.3 (14.0-18.0) g/dL Hct 41.6 L (42-52) % MCV 97.4 (80-100) fL MCH 33.5 (25-34) pg MCHC 34.4 (32-36) g/dL RDW Std Deviation 43.7 (36.4-46.3) fL RDW Coeff of Racheal 12.4 (11.5-14.5) % Plt Count 286 (130-400) K/uL MPV 10.7 H (7.4-10.4) fL Neutrophils % (Manual) 89.7 % Lymphocytes % (Manual) 4.3 % Monocytes % (Manual) 6.0 % Neutrophils # (Manual) 20.09 H (1.4-6.5) K/uL Total Absolute Neuts 20.09 H (1.4-6.5) K/uL Lymphocytes # (Manual) 0.96 L (1.2-3.4) K/uL Total Abs Lymphocytes 0.96 L (1.2-3.4) K/uL Monocytes # (Manual) 1.34 H (0.11-0.59) K/uL RBC Morphology Unremarkable PT 10.8 (9.0-12.0) Seconds INR 1.0 (0.9-1.1) APTT 32.0 H (21.0-31.0) Seconds PTT Ratio 1.2 Sodium 130 L (136-145) mmol/L Potassium (3.5-5.1) mmol/L Chloride 94 L (98-107) mmol/L Carbon Dioxide 26 (21-32) mmol/L Anion Gap 10 (3-11) BUN 15 (6-23) mg/dl Creatinine 0.75 (0.6-1.4) mg/dl Est Cr Clr Drug Dosing 119.2 ml/min Est GFR ( Amer) 108.5 ml/min Est GFR (Non-Af Amer) 93.6 ml/min BUN/Creatinine Ratio 20.0 (10-20) Glucose 102 H (70-99(Fasting)) mg/dl Lactate (0.4-2.0) mmol/L Calcium 9.2 (8.5-10.1) mg/dl Magnesium 1.8 (1.7-2.4) mg/dl Total Bilirubin 1.2 H (0.2-1.0) mg/dl AST (13-39) U/L ALT 17 (7-52) U/L Alkaline Phosphatase 68 (34-104) U/L Total Creatine Kinase 791 H (30-223) U/L Troponin I High Sens 12.8 (0-20) pg/ml Total Protein 6.9 (6.0-8.3) gm/dl Albumin 4.1 (3.4-5.0) gm/dl Globulin 2.8 (2.5-4.0) gm/dl Albumin/Globulin Ratio 1.5 (0.9-2) TSH (0.300-4.500) uIu/ml Urine Color Urine Appearance (Clear) Urine pH (4.5-7.5) Ur Specific [place] (1.000-1.030) Urine Protein (Negative) Urine Glucose (UA) (Negative) Urine Ketones (Negative) Urine Blood (Negative) Urine Nitrite (Negative) Urine Bilirubin (Negative) Urine Urobilinogen (Negative) Ur Leukocyte Esterase (Negative) Urine WBC (Auto) (0-5) /hpf Urine RBC (Auto) (0-4) /hpf U Hyaline Cast (Auto) (0-5) /lpf U Epithel Cells (Auto) (0-5) /lpf Urine Bacteria (Auto) (Negative) SARS-CoV-2, RNA, NAAT (NEGATIVE) 11/18/21 11/18/21 11/18/21 Range/Units 15:10 16:10 16:11 WBC (4.8-10.8) K/uL RBC (4.7-6.1) M/uL Hgb (14.0-18.0) g/dL Hct (42-52) % MCV (80-100) fL MCH (25-34) pg MCHC (32-36) g/dL RDW Std Deviation (36.4-46.3) fL RDW Coeff of Racheal (11.5-14.5) % Plt Count (130-400) K/uL MPV (7.4-10.4) fL Neutrophils % (Manual) % Lymphocytes % (Manual) % Monocytes % (Manual) % Neutrophils # (Manual) (1.4-6.5) K/uL Total Absolute Neuts (1.4-6.5) K/uL Lymphocytes # (Manual) (1.2-3.4) K/uL Total Abs Lymphocytes (1.2-3.4) K/uL Monocytes # (Manual) (0.11-0.59) K/uL RBC Morphology PT (9.0-12.0) Seconds INR (0.9-1.1) APTT (21.0-31.0) Seconds PTT Ratio Sodium (136-145) mmol/L Potassium (3.5-5.1) mmol/L Chloride (98-107) mmol/L Carbon Dioxide (21-32) mmol/L Anion Gap (3-11) BUN (6-23) mg/dl Creatinine (0.6-1.4) mg/dl Est Cr Clr Drug Dosing ml/min Est GFR ( Amer) ml/min Est GFR (Non-Af Amer) ml/min BUN/Creatinine Ratio (10-20) Glucose (70-99(Fasting)) mg/dl Lactate 2.2 H* (0.4-2.0) mmol/L Calcium (8.5-10.1) mg/dl Magnesium (1.7-2.4) mg/dl Total Bilirubin (0.2-1.0) mg/dl AST (13-39) U/L ALT (7-52) U/L Alkaline Phosphatase (34-104) U/L Total Creatine Kinase (30-223) U/L Troponin I High Sens (0-20) pg/ml Total Protein (6.0-8.3) gm/dl Albumin (3.4-5.0) gm/dl Globulin (2.5-4.0) gm/dl Albumin/Globulin Ratio (0.9-2) TSH 1.587 (0.300-4.500) uIu/ml Urine Color Urine Appearance (Clear) Urine pH (4.5-7.5) Ur Specific [place] (1.000-1.030) Urine Protein (Negative) Urine Glucose (UA) (Negative) Urine Ketones (Negative) Urine Blood (Negative) Urine Nitrite (Negative) Urine Bilirubin (Negative) Urine Urobilinogen (Negative) Ur Leukocyte Esterase (Negative) Urine WBC (Auto) (0-5) /hpf Urine RBC (Auto) (0-4) /hpf U Hyaline Cast (Auto) (0-5) /lpf U Epithel Cells (Auto) (0-5) /lpf Urine Bacteria (Auto) (Negative) SARS-CoV-2, RNA, NAAT NEGATIVE (NEGATIVE) 11/18/21 11/18/21 11/18/21 Range/Units 16:15 16:50 18:20 WBC (4.8-10.8) K/uL RBC (4.7-6.1) M/uL Hgb (14.0-18.0) g/dL Hct (42-52) % MCV (80-100) fL MCH (25-34) pg MCHC (32-36) g/dL RDW Std Deviation (36.4-46.3) fL RDW Coeff of Racheal (11.5-14.5) % Plt Count (130-400) K/uL MPV (7.4-10.4) fL Neutrophils % (Manual) % Lymphocytes % (Manual) % Monocytes % (Manual) % Neutrophils # (Manual) (1.4-6.5) K/uL Total Absolute Neuts (1.4-6.5) K/uL Lymphocytes # (Manual) (1.2-3.4) K/uL Total Abs Lymphocytes (1.2-3.4) K/uL Monocytes # (Manual) (0.11-0.59) K/uL RBC Morphology PT (9.0-12.0) Seconds INR (0.9-1.1) APTT (21.0-31.0) Seconds PTT Ratio Sodium (136-145) mmol/L Potassium 4.2 (3.5-5.1) mmol/L Chloride (98-107) mmol/L Carbon Dioxide (21-32) mmol/L Anion Gap (3-11) BUN (6-23) mg/dl Creatinine (0.6-1.4) mg/dl Est Cr Clr Drug Dosing ml/min Est GFR ( Amer) ml/min Est GFR (Non-Af Amer) ml/min BUN/Creatinine Ratio (10-20) Glucose (70-99(Fasting)) mg/dl Lactate 1.7 (0.4-2.0) mmol/L Calcium (8.5-10.1) mg/dl Magnesium (1.7-2.4) mg/dl Total Bilirubin (0.2-1.0) mg/dl AST 32 (13-39) U/L ALT (7-52) U/L Alkaline Phosphatase (34-104) U/L Total Creatine Kinase (30-223) U/L Troponin I High Sens (0-20) pg/ml Total Protein (6.0-8.3) gm/dl Albumin (3.4-5.0) gm/dl Globulin (2.5-4.0) gm/dl Albumin/Globulin Ratio (0.9-2) TSH (0.300-4.500) uIu/ml Urine Color Dark Yellow Urine Appearance Clear (Clear) Urine pH 6.0 (4.5-7.5) Ur Specific [place] 1.029 (1.000-1.030) Urine Protein 1+ H (Negative) Urine Glucose (UA) Negative (Negative) Urine Ketones Trace H (Negative) Urine Blood Negative (Negative) Urine Nitrite Negative (Negative) Urine Bilirubin 1+ H (Negative) Urine Urobilinogen Negative (Negative) Ur Leukocyte Esterase Negative (Negative) Urine WBC (Auto) 1-5 (0-5) /hpf Urine RBC (Auto) 5-10 H (0-4) /hpf U Hyaline Cast (Auto) 10-30 H (0-5) /lpf U Epithel Cells (Auto) 20-30 H (0-5) /lpf Urine Bacteria (Auto) Negative (Negative) SARS-CoV-2, RNA, NAAT (NEGATIVE) Administered Medications Discontinued Medications Sodium Chloride (Nss) 500 mls @ 999 mls/hr IV .Q31M TERRY Stop: 11/18/21 15:45 Last Infusion: 11/18/21 18:15 Dose: 0 mls/hr Documented by: [id number] Admin: 11/18/21 16:37 Dose: 999 mls/hr Documented by: [id number] Cefepime HCl (Maxipime) 2,000 mg in 20 mls @ 5 mls/min IV NOW STA; Protocol Stop: 11/18/21 15:49 Last Admin: 11/18/21 16:37 Dose: 5 mls/min Documented by: [id number] Sodium Chloride (Nss 1000ml) 500 mls @ 999 mls/hr IV .Q31M ONE Stop: 11/18/21 17:29 Last Infusion: 11/18/21 19:02 Dose: 0 mls/hr Documented by: [id number] Admin: 11/18/21 18:30 Dose: 999 mls/hr Documented by: [id number] Sodium Chloride (Nss 1000ml) 500 mls @ 999 mls/hr IV .Q31M ONE Stop: 11/18/21 19:19 Last Infusion: 11/18/21 19:59 Dose: 0 mls/hr Documented by: [id number] Admin: 11/18/21 19:02 Dose: 999 mls/hr Documented by: [id number] Labetalol HCl (Labetalol Hcl Iv 5 Mg/Ml 20ml) 10 mg IV NOW STA Stop: 11/18/21 18:49 Last Admin: 11/18/21 18:56 Dose: 10 mg Documented by: [id number] Cosigned by: [id number] Imaging Data Radiologist's Impression: Cervical Spine MRI 11/18/21 15:04 MRI OF THE CERVICAL SPINE WITHOUT IV CONTRAST CLINICAL HISTORY: Upper and lower extremity weakness. Recent neck surgery. COMPARISON STUDY: MRI of the cervical spine dated 09/20/2021. TECHNIQUE: MRI of the cervical spine is performed utilizing various T1 and T2- weighted images in the axial and sagittal planes. IV contrast was not administered for this examination. The examination is significantly compromised by motion artifact. FINDINGS: Cervical spine: Vertebral body height and alignment are maintained throughout the cervical spine. There is straightening of the cervical lordosis. The atlantodental articulation is maintained, noting productive degenerative change. There has been corpectomy of C4 with anterior fusion at C3-C5. Nonspecific edema is noted at the corpectomy site. Susceptibility artifact from orthopedic hardware degrades evaluation at these levels. The spinous processes appear intact. Anterior osteophytes are seen throughout. Intervertebral discs: There has likely been discectomy at C3-C4 and C4-C5. Disc desiccation and loss of height are seen at the remaining lumbar levels. Loss of height is moderate at all levels. Cervical cord: Again seen is thinning of the spinal cord at the C3-C4 level. A focus of T2 signal abnormality within the cervical cord at C4 was also seen preoperatively. C2-C3: A posterior disc osteophyte complex eccentric to the left effaces the ventral cord. Uncovertebral and facet arthropathy contribute to moderate left and mild right neural foraminal stenosis. C3-C4: This level is not well evaluated due to postoperative change. Corpectomy change is noted and there is severe central canal stenosis at this level with a minimum AP diameter of 4 mm. Facet arthropathy is seen bilaterally. The neural foramina are not well assessed. C4-C5: Not well evaluated due to postoperative change and severe motion. There is at least moderate central canal stenosis at this level with a minimum AP diameter of 7 mm. Uncovertebral and facet arthropathy are seen bilaterally and likely contribute to neural foraminal narrowing. C5-C6: A posterior disc osteophyte complex abuts the ventral cord. Uncovertebral and facet arthropathy contribute to bilateral neural foraminal stenosis. C6-C7: The central canal appears clear. Uncovertebral and facet arthropathy contribute to severe bilateral neural foraminal narrowing. C7-T1: Unremarkable. Soft tissues: There is significant prevertebral soft tissue edema which is nonspecific given recent surgery. A complex fluid collection anteriorly seen from C3 to C6 measures 4.7 cm in length, as seen on sagittal image #5 and likely represents a postoperative hematoma. The posterior soft tissues are normal as visualized. Brain parenchyma: Imaged brain parenchyma at the skull base is normal in appearance. IMPRESSION: 1. Severely motion compromised examination. This degrades diagnostic utility. 2. There is postoperative change from anterior spinal fusion seen at C3-C5. 3. There is severe central canal stenosis at the C3 and C4 levels with thinning of the cervical cord. Increased signal within the cervical cord at this level was also seen on the preoperative examination and likely represents myelomalacia. 4. There is no clear evidence of epidural fluid collection on this examination. This is not well evaluated. 5. Prevertebral soft tissue edema is nonspecific and likely related to recent surgery. A hematoma is suggested in the prevertebral soft tissues. Dictated: 11/18/2021 6:06 PM Transcribed: 11/18/2021 6:29 PM Marsha [id number] [facility] Electronically signed by: Wil Donnelly M.D. 11/18/2021 6:37 PM Chest X-Ray 11/18/21 15:04 XR chest 1V portable CLINICAL HISTORY: weakness. Evaluate cardiopulmonary status COMPARISON STUDY: 01/14/2021 TECHNIQUE: 1 view of the chest FINDINGS: Single frontal view of the chest demonstrates the cardiomediastinal silhouette to be within normal limits. The aorta is atherosclerotic and ectatic. There is a decreased inspiratory effort with elevation of the hemidiaphragms and crowding of the bronchovascular markings at the lung bases and centrally. The lungs are clear of alveolar opacities. There is no evidence for pleural effusion. There is no evidence for vascular congestion. There is no acute osseous pathology. IMPRESSION: 1. . There is a decreased inspiratory effort with otherwise no acute chest disease. ACT 112: Negative or not required by law. Electronically signed by: Ike Gallegos M.D. 11/18/2021 4:05 PM Discharge Plan Visit Data Chief Complaint: Fall Stated Complaint: WEAKNESS ED Provider: Wil Farrell Discharge Problem: Weakness, Leukocytosis, Rhabdomyolysis, Acute hyponatremia, Dehydration, H/O cervical spine surgery Patient Disposition: Admitted As Inpatient Condition: Fair Forms Stand Alone Forms: My [employer] Prescriptions Prescriptions: No Action cyanocobalamin (vitamin B-12) 1,000 mcg/mL solution 1,000 mcg subcut .COMPLEX Qty: 8 RF: 0 furosemide [Lasix] 40 mg Tablet 40 mg PO QAM RF: 0 potassium chloride 10 mEq Capsule, Extended Release 10 meq PO QAM RF: 0 amiodarone 200 mg Tablet 200 mg PO QAM RF: 0 vitamin E 400 unit Capsule 400 unit PO HS RF: 0 sildenafil [Viagra] 50 mg Tablet 50 mg PO DAILY PRN (Reason: Erectile Dysfunction) RF: 0 metoprolol succinate 50 mg Tablet Extended Release 24 Hr 100 mg PO QAM RF: 0 aspirin 81 mg Tablet,Delayed Release (Dr/Ec) 81 mg PO QPM RF: 0 rosuvastatin 10 mg Tablet 10 mg PO QAM RF: 0 cyanocobalamin (vitamin B-12) [Vitamin B-12] 1,000 mcg Tablet 1,000 mcg PO HS RF: 0 Entresto 97-103 mg Tablet 1 tab PO BID RF: 0 tramadol 50 mg tablet 50 mg PO Q6H PRN (Reason: pain, moderate) Qty: 20 RF: 0 oxycodone 5 mg tablet 5 mg PO Q6H PRN (Reason: pain, severe) Qty: 20 RF: 0 Referrals Referrals: Adithya Jeffers [Primary Care Provider] -
[2021-11-18 15:25] LABS: Hematocrit (blood only) 41.6 % (42-52); Hemoglobin 14.3 g/dL (14.0-18.0); Mean Corpuscular Hemoglobin 33.5 pg (25-34); Mean Corpuscular Hgb Conc 34.4 g/dL (32-36); Mean Corpuscular Volume 97.4 fL (80-100); Mean Platelet Volume 10.7 fL (7.4-10.4); Platelet Count 286 K/uL (130-400); RDW Coefficient of Variation 12.4 % (11.5-14.5); RDW Standard Deviation 43.7 fL (36.4-46.3); Red Blood Count 4.27 M/uL (4.7-6.1)
[2021-11-18] MEDS ORDERED: CEFEPIME 2,000 MG/20 ML VIAL IV STA (15:46)
[2021-11-18 15:50] LABS: Partial Thromboplastin Ratio 1.2; Prothrombin Time 10.8 Seconds (9.0-12.0)
[2021-11-18 16:04] LABS: ALC (manual) 0.96 K/uL (1.2-3.4); ANC (manual) 20.09 K/uL (1.4-6.5); Lymphocytes # (manual) 0.96 K/uL (1.2-3.4); Lymphocytes % (manual) 4.3 %; Monocytes # (manual) 1.34 K/uL (0.11-0.59); Neutrophils # (manual) 20.09 K/uL (1.4-6.5); Neutrophils % (manual) 89.7 %; RBC Morphology Unremarkable
--- NOTE | 2021-11-18 16:07 | XRay Report ---
XR chest 1V portable CLINICAL HISTORY: weakness. Evaluate cardiopulmonary status COMPARISON STUDY: 01/14/2021 TECHNIQUE: 1 view of the chest FINDINGS: Single frontal view of the chest demonstrates the cardiomediastinal silhouette to be within normal li mits. The aorta is atherosclerotic and ectatic. There is a decreased inspiratory effort with elevatio n of the hemidiaphragms and crowding of the bronchovascular markings at the lung bases and centrally. The lungs are clear of alveolar opacities. There is no evidence for pleural effusion. There is no ev idence for vascular congestion. There is no acute osseous pathology. IMPRESSION: 1. . There is a decreased inspiratory effort with otherwise no acute chest disease. ACT 112: Negative or not required by law. Electronically signed by: Ike Gallegos M.D. 11/18/2021 4:05 PM
[2021-11-18 16:12] LABS: Troponin I High Sensitivity 12.8 pg/ml (0-20)
[2021-11-18 16:15] LABS: Albumin Globulin Ratio 1.5 (0.9-2); Albumin Level 4.1 gm/dl (3.4-5.0); Bilirubin,Total 1.2 mg/dl (0.2-1.0); Calcium 9.2 mg/dl (8.5-10.1); Creatinine Clr Calc Pharmacy 119.2 ml/min; Est GFR (African American) 108.5 ml/min; Est GFR (Non-African American) 93.6 ml/min; Globulin 2.8 gm/dl (2.5-4.0); Magnesium 1.8 mg/dl (1.7-2.4); Total Protein 6.9 gm/dl (6.0-8.3)
[2021-11-18] MEDS ORDERED: SODIUM CHLORIDE 0.9% 1000ML 500 ML IV ONE ×2 (16:59→18:49)
[2021-11-18 17:17] LABS: Appearance Urine Clear (Clear); Bacteria Urine Automated Negative (Negative); Blood Urine Negative (Negative); Color Urine Dark Yellow; Epithelial Cell Urine Auto 20-30 /lpf (0-5); Glucose Urine UA Negative (Negative); Ketones Urine Trace (Negative); Leukocyte Esterase Urine Negative (Negative); Nitrite Urine Negative (Negative); Protein Urine 1+ (Negative); Specific Gravity Urine 1.029 (1.000-1.030); Urobilinogen Urine Negative (Negative)
[2021-11-18 17:20] LABS: Bilirubin Urine 1+ (Negative)
[2021-11-18 17:31] LABS: Potassium 4.2 mmol/L (3.5-5.1)
--- NOTE | 2021-11-18 18:38 | Magnetic Resonance Report ---
MRI OF THE CERVICAL SPINE WITHOUT IV CONTRAST CLINICAL HISTORY: Upper and lower extremity weakness. Recent neck surgery. COMPARISON STUDY: MRI of the cervical spine dated 09/20/2021. TECHNIQUE: MRI of the cervical spine is performed utilizing various T1 and T2-weighted images in the axial and sagittal planes. IV contrast was not administered for this examination. The examination is significantly compromised by motion artifact. FINDINGS: Cervical spine: Vertebral body height and alignment are maintained throughout the cervical spine. The re is straightening of the cervical lordosis. The atlantodental articulation is maintained, noting pr oductive degenerative change. There has been corpectomy of C4 with anterior fusion at C3-C5. Nonspeci fic edema is noted at the corpectomy site. Susceptibility artifact from orthopedic hardware degrades evaluation at these levels. The spinous processes appear intact. Anterior osteophytes are seen throug hout. Intervertebral discs: There has likely been discectomy at C3-C4 and C4-C5. Disc desiccation and loss of height are seen at the remaining lumbar levels. Loss of height is moderate at all levels. Cervical cord: Again seen is thinning of the spinal cord at the C3-C4 level. A focus of T2 signal abn ormality within the cervical cord at C4 was also seen preoperatively. C2-C3: A posterior disc osteophyte complex eccentric to the left effaces the ventral cord. Uncoverteb ral and facet arthropathy contribute to moderate left and mild right neural foraminal stenosis. C3-C4: This level is not well evaluated due to postoperative change. Corpectomy change is noted and t here is severe central canal stenosis at this level with a minimum AP diameter of 4 mm. Facet arthrop athy is seen bilaterally. The neural foramina are not well assessed. C4-C5: Not well evaluated due to postoperative change and severe motion. There is at least moderate c entral canal stenosis at this level with a minimum AP diameter of 7 mm. Uncovertebral and facet arthr opathy are seen bilaterally and likely contribute to neural foraminal narrowing. C5-C6: A posterior disc osteophyte complex abuts the ventral cord. Uncovertebral and facet arthropath y contribute to bilateral neural foraminal stenosis. C6-C7: The central canal appears clear. Uncovertebral and facet arthropathy contribute to severe bila teral neural foraminal narrowing. C7-T1: Unremarkable. Soft tissues: There is significant prevertebral soft tissue edema which is nonspecific given recent s urgery. A complex fluid collection anteriorly seen from C3 to C6 measures 4.7 cm in length, as seen o n sagittal image #5 and likely represents a postoperative hematoma. The posterior soft tissues are no rmal as visualized. Brain parenchyma: Imaged brain parenchyma at the skull base is normal in appearance. IMPRESSION: 1. Severely motion compromised examination. This degrades diagnostic utility. 2. There is postoperative change from anterior spinal fusion seen at C3-C5. 3. There is severe central canal stenosis at the C3 and C4 levels with thinning of the cervical cord. Increased signal within the cervical cord at this level was also seen on the preoperative examinatio n and likely represents myelomalacia. 4. There is no clear evidence of epidural fluid collection on this examination. This is not well eval uated. 5. Prevertebral soft tissue edema is nonspecific and likely related to recent surgery. A hematoma is suggested in the prevertebral soft tissues. Dictated: 11/18/2021 6:06 PM Transcribed: 11/18/2021 6:29 PM Marsha [id number] TRINI_Micaela Electronically signed by: Wil Donnelly M.D. 11/18/2021 6:37 PM
--- NOTE | 2021-11-18 18:43 | Electrocardiogram Report ---
Test Reason : Blood Pressure : / mmHG Vent. Rate : 095 BPM Atrial Rate : 095 BPM P-R Int : 152 ms QRS Dur : 094 ms QT Int : 368 ms P-R-T Axes : -08 -34 062 degrees QTc Int : 462 ms Poor data quality, interpretation may be adversely affected Normal sinus rhythm Left axis deviation Incomplete right bundle branch block Abnormal ECG When compared with ECG of 17-OCT-2021 12:06, Vent. rate has increased BY 32 BPM Incomplete right bundle branch block is now Present Confirmed by Feliciano Stewart ([id number]) on 11/18/2021 6:42:39 PM Referred By: REFERRED SELF Confirmed By:Enrrique Stewart
[2021-11-18] MEDS ORDERED: LABETALOL HCL IV 5 MG/ML 20ML IV STA (18:48)
--- NOTE | 2021-11-18 19:43 | History & Physical Report ---
Date of Service November 18, 2021 Assessment & Plan (1) Fall: Plan: 71yo male with history of HTN, HLP, AF, cervical spinal stenosis s/p C3-C5 ACDF performed by Dr. Parrish on 11/06/21 - POD #12 presenting with progressive upper extremity weakness, poor coordination. Patient with a ground level fall at home after his legs gave out - down on his floor for 12-15 hours. Presently with some bilateral UE weakness. MRI with small anterior hematoma - reviewed by ER physician as well as Dr. Parrish. Patient with leukocytosis - most likely reactive secondary to fall and prolonged down time. No obvious source of infection. Patient with mild elevation in CK most likely secondary to prolonged down time. -Admit to medical with telemetry -Neuro checks q 2 hours -Orthopedic consultation appreciated -Maintain cervical collar -LR at 100mL/hr x 2 liters -Repeat CK in AM -Montior UOP -Repeat CBC in AM - consider infectious workup if elevated WBC persists (?surgical site?) (2) Cervical radiculopathy: Plan: Some concern for hematoma, new bilateral UE weakness and poor coordination -Neuro checks -Ortho consultation -Consider steroid use (3) Hypertension: Plan: Blood pressure stable -Continue Entresto, metoprolol -Continue to monitor (4) Dyslipidemia: Plan: Chronic -Hold Crestor for now (5) CAD (coronary artery disease): Plan: Patient denies chest pain -Hold ASA in setting of hematoma -Hold Crestor in setting of mildly elevated CK -Continue Metoprolol -Continue Entresto (6) Atrial fibrillation: Plan: Rate controlled -Hold Eliquis -Continue metoprolol -Continue Amiodarone Plan: F/E/N - LR at 100mL/hr x 2, electrolytes WNL, CC diet as tolerated Ppx - SCDs Code - Full Dispo - Admit to medical with telemetry History of Present Illness Chief Complaint: weakness, fall, prolonged down time Primary Care Provider: Adithya Jeffers Jorge A Recinos is a 71yo male with history of atrial fibrillation on Eliquis anticoagulation, CAD, CHF, HTN, HLP and NICM presenting with weakness, fall at home with 12-15 hour down time. Patient was recently admitted to [facility] with cervical spinal stenosis. He had an ACDF of C3-C5 performed on 11/06/[address] Parrish. He was discharged home on 11/07/21. Patient states he had been doing fairly well since returning home. He has stable discomfort in his cervical spi ne appx 3 in severity. He has not required any of his prescribed Oxycodone. He reports some increased weakness and poor coordination of his bilateral upper extremities. He reports difficulty lifting his arms as well as grasping items. Last evening he was in the bathroom around 21:00 when his legs felt weak. He tried to get to his bed but ultimately collapsed on the floor. He was unable to get up. He tried to crawl around causing some abrasions on his knees, feet and toes. He denies chest pain, palpitations, cough, SOB, dizziness preceding or following the fall. He denies head or neck trauma, no LOC. He was wearing his C-collar at the time of the fall. He was ultimately found by family approximately 12-15 hours after the initial fall. He was laying on his stomach. In the ER patient afebrile, HD stable, NAD. Son is at bedside ER Course: Cefepime, Labetalol, NSS x 1500mL Allergies Allergy/AdvReac Type Severity Reaction Status Date / Time No Known Allergies Allergy Verified 11/18/21 17:43 Home Medications Medication Instructions Recorded Confirmed Type amiodarone 200 mg tablet 200 mg PO QAM 01/28/21 11/18/21 History furosemide 40 mg tablet (Lasix) 40 mg PO QAM 01/28/21 11/18/21 History potassium chloride 10 mEq 10 meq PO QAM 01/28/21 11/18/21 History capsule,extended release sildenafil 50 mg tablet (Viagra) 50 mg PO DAILY PRN 03/11/21 11/18/21 History aspirin 81 mg tablet,delayed 81 mg PO QPM 07/10/21 11/18/21 History release metoprolol succinate 50 mg 100 mg PO QAM 07/10/21 11/18/21 History tablet,extended release 24 hr rosuvastatin 10 mg tablet 10 mg PO QAM 07/10/21 11/18/21 History cyanocobalamin (vitamin B-12) 1,000 mcg SUBCUT .COMPLEX #8 ml 09/23/21 11/18/21 Rx 1,000 mcg/mL injection solution cyanocobalamin (vitamin B-12) 1,000 mcg PO HS 10/14/21 11/18/21 History 1,000 mcg tablet (Vitamin B-12) sacubitril 97 mg-valsartan 103 mg 1 tab PO BID 10/14/21 11/18/21 History tablet (Entresto) oxycodone 5 mg tablet 5 mg PO Q6H PRN #20 tab 11/06/21 11/18/21 Rx tramadol 50 mg tablet 50 mg PO Q6H PRN #20 tab 11/06/21 11/18/21 Rx vitamin E 400 unit capsule 400 unit PO HS 11/18/21 11/18/21 History Past Med/Surg History Medical History (Updated 11/18/21 @ 21:29 by Ruth Russell DO) Atrial fibrillation Follows with Dr. Wu, on Eliquis CAD (coronary artery disease) Per 03/2021 cardiac cath, "Recommend medical management of heavily calcified collateralized RCA and diffuse apical LAD, branch vessel disease. Continue GDMT, rhythm control per Dr. Wu." CHF (congestive heart failure) Dyslipidemia History of COVID-19 02/2021 Hx of gout Hypertension Nonischemic cardiomyopathy Osteoarthritis Surgical History History of cardiac cath 03/2021 (no stents) History of cardioversion x2 (most recent 01/2021) History of transesophageal echocardiography ([facility]) Hx of bilateral cataract extraction Hx of colonoscopy Colonoscopy (07/16/21): MAC at [facility] Hx of esophagogastroduodenoscopy Hx of tonsillectomy Family History Other No family history of adverse response to anesthesia Social History Smoking Status: Never smoker Second Hand Exposure: No; Hx Alcohol Use: Yes Alcohol type: wine Hx Substance Use: No Preferred Language: Maori Communication Ability: Effective Fitter Placer Required: No Beliefs That Will Affect Care: None Current Living Situation: Alone Current Living Situation Comment: girlfriend (long distance) she is not local Feels Safe at Home: Yes Assistive Devices: Cane Review of Systems Review of Systems: All systems reviewed & are unremarkable except as noted in HPI & below Physical Exam Physical Exam: General: patient resting comfortably, NAD, non-toxic in appearance, AA&O x 4, +facial edema, +lip swelling mostly on right lower lip, cervical collar in place Skin: warm, dry, intact, abrasions present on bilateral feet, large blister on left foot, abrasion on right toes, abrasions on face HEENT: Facial bones stable, nontender, scattered abrasions on face, swelling of face and lips, PERRL, EOMI, anicteric sclera, conjunctiva without injection, external ear normal to inspection and nontender, nares patent, moist mucus membranes, dentition intact, no oropharyngeal lesions, cervical collar in place, dressings from ACDF clean/dry/intact Heart: +S1/S2, regular, no m/r/g Lungs: equal air entry bilaterally, no rales/rhonchi/wheezes Abd: +BS, soft, NT/ND, no masses/organomegaly/ascites Ext: warm, 2+ pulses in UE/LE bilaterally, no clubbing/cyanosis or edema Neuro: AA&O x 4, speech intact, weakness of bilateral upper extremities strength 3/5, 5/5 in bilateral LE Results & Data Results & Data ([facility]) Vital Signs (Past 12 Hours) Vital Signs Temp Pulse Pulse Resp BP BP Pulse Ox 11/18/21 19:08 86 20 140/95 97 11/18/21 18:30 101 H 22 173/105 H 98 11/18/21 18:21 101 H 11/18/21 17:00 99 H 20 169/112 H 99 11/18/21 16:30 99 H 24 11/18/21 16:00 95 H 23 11/18/21 15:30 93 H 21 156/98 H 97 11/18/21 15:00 96 H 23 144/107 H 98 11/18/21 14:30 37.3 C 87 19 146/99 H 99 11/18/21 14:27 89 22 100 Laboratory Results Laboratory Results WBC 22.40 K/uL (4.8-10.8) H 11/18/21 15:10 RBC 4.27 M/uL (4.7-6.1) L 11/18/21 15:10 Hgb 14.3 g/dL (14.0-18.0) 11/18/21 15:10 Hct 41.6 % (42-52) L 11/18/21 15:10 MCV 97.4 fL (80-100) 11/18/21 15:10 MCH 33.5 pg (25-34) 11/18/21 15:10 MCHC 34.4 g/dL (32-36) 11/18/21 15:10 RDW Std Deviation 43.7 fL (36.4-46.3) 11/18/21 15:10 RDW Coeff of Racheal 12.4 % (11.5-14.5) 11/18/21 15:10 Plt Count 286 K/uL (130-400) 11/18/21 15:10 MPV 10.7 fL (7.4-10.4) H 11/18/21 15:10 Neutrophils % (Manual) 89.7 % 11/18/21 15:10 Lymphocytes % (Manual) 4.3 % 11/18/21 15:10 Monocytes % (Manual) 6.0 % 11/18/21 15:10 Neutrophils # (Manual) 20.09 K/uL (1.4-6.5) H 11/18/21 15:10 Total Absolute Neuts 20.09 K/uL (1.4-6.5) H 11/18/21 15:10 Lymphocytes # (Manual) 0.96 K/uL (1.2-3.4) L 11/18/21 15:10 Total Abs Lymphocytes 0.96 K/uL (1.2-3.4) L 11/18/21 15:10 Monocytes # (Manual) 1.34 K/uL (0.11-0.59) H 11/18/21 15:10 RBC Morphology Unremarkable 11/18/21 15:10 PT 10.8 Seconds (9.0-12.0) 11/18/21 15:10 INR 1.0 (0.9-1.1) 11/18/21 15:10 APTT 32.0 Seconds (21.0-31.0) H 11/18/21 15:10 PTT Ratio 1.2 11/18/21 15:10 Sodium 130 mmol/L (136-145) L 11/18/21 15:10 Potassium 4.2 mmol/L (3.5-5.1) 11/18/21 16:15 Chloride 94 mmol/L (98-107) L 11/18/21 15:10 Carbon Dioxide 26 mmol/L (21-32) 11/18/21 15:10 Anion Gap 10 (3-11) 11/18/21 15:10 BUN 15 mg/dl (6-23) 11/18/21 15:10 Creatinine 0.75 mg/dl (0.6-1.4) 11/18/21 15:10 Est Cr Clr Drug Dosing 119.2 ml/min 11/18/21 15:10 Est GFR ( Amer) 108.5 ml/min 11/18/21 15:10 Est GFR (Non-Af Amer) 93.6 ml/min 11/18/21 15:10 BUN/Creatinine Ratio 20.0 (10-20) 11/18/21 15:10 Glucose 102 mg/dl (70-99(Fasting)) H 11/18/21 15:10 Lactate 1.7 mmol/L (0.4-2.0) 11/18/21 18:20 Calcium 9.2 mg/dl (8.5-10.1) 11/18/21 15:10 Magnesium 1.8 mg/dl (1.7-2.4) 11/18/21 15:10 Total Bilirubin 1.2 mg/dl (0.2-1.0) H 11/18/21 15:10 AST 32 U/L (13-39) 11/18/21 16:15 ALT 17 U/L (7-52) 11/18/21 15:10 Alkaline Phosphatase 68 U/L (34-104) 11/18/21 15:10 Total Creatine Kinase 791 U/L (30-223) H 11/18/21 15:10 Troponin I High Sens 12.8 pg/ml (0-20) 11/18/21 15:10 Total Protein 6.9 gm/dl (6.0-8.3) 11/18/21 15:10 Albumin 4.1 gm/dl (3.4-5.0) 11/18/21 15:10 Globulin 2.8 gm/dl (2.5-4.0) 11/18/21 15:10 Albumin/Globulin Ratio 1.5 (0.9-2) 11/18/21 15:10 TSH 1.587 uIu/ml (0.300-4.500) 11/18/21 15:10 Urine Color Dark Yellow 11/18/21 16:50 Urine Appearance Clear (Clear) 11/18/21 16:50 Urine pH 6.0 (4.5-7.5) 11/18/21 16:50 Ur Specific [place] 1.029 (1.000-1.030) 11/18/21 16:50 Urine Protein 1+ (Negative) H 11/18/21 16:50 Urine Glucose (UA) Negative (Negative) 11/18/21 16:50 Urine Ketones Trace (Negative) H 11/18/21 16:50 Urine Blood Negative (Negative) 11/18/21 16:50 Urine Nitrite Negative (Negative) 11/18/21 16:50 Urine Bilirubin 1+ (Negative) H 11/18/21 16:50 Urine Urobilinogen Negative (Negative) 11/18/21 16:50 Ur Leukocyte Esterase Negative (Negative) 11/18/21 16:50 Urine WBC (Auto) 1-5 /hpf (0-5) 11/18/21 16:50 Urine RBC (Auto) 5-10 /hpf (0-4) H 11/18/21 16:50 U Hyaline Cast (Auto) 10-30 /lpf (0-5) H 11/18/21 16:50 U Epithel Cells (Auto) 20-30 /lpf (0-5) H 11/18/21 16:50 Urine Bacteria (Auto) Negative (Negative) 11/18/21 16:50 SARS-CoV-2, RNA, NAAT NEGATIVE (NEGATIVE) 11/18/21 16:10 Impressions Cervical Spine MRI 11/18/21 15:04 MRI OF THE CERVICAL SPINE WITHOUT IV CONTRAST CLINICAL HISTORY: Upper and lower extremity weakness. Recent neck surgery. COMPARISON STUDY: MRI of the cervical spine dated 09/20/2021. TECHNIQUE: MRI of the cervical spine is performed utilizing various T1 and T2- weighted images in the axial and sagittal planes. IV contrast was not administered for this examination. The examination is significantly compromised by motion artifact. FINDINGS: Cervical spine: Vertebral body height and alignment are maintained throughout the cervical spine. There is straightening of the cervical lordosis. The atlantodental articulation is maintained, noting productive degenerative change. There has been corpectomy of C4 with anterior fusion at C3-C5. Nonspecific edema is noted at the corpectomy site. Susceptibility artifact from orthopedic hardware degrades evaluation at these levels. The spinous processes appear intact. Anterior osteophytes are seen throughout. Intervertebral discs: There has likely been discectomy at C3-C4 and C4-C5. Disc desiccation and loss of height are seen at the remaining lumbar levels. Loss of height is moderate at all levels. Cervical cord: Again seen is thinning of the spinal cord at the C3-C4 level. A focus of T2 signal abnormality within the cervical cord at C4 was also seen preoperatively. C2-C3: A posterior disc osteophyte complex eccentric to the left effaces the ventral cord. Uncovertebral and facet arthropathy contribute to moderate left and mild right neural foraminal stenosis. C3-C4: This level is not well evaluated due to postoperative change. Corpectomy change is noted and there is severe central canal stenosis at this level with a minimum AP diameter of 4 mm. Facet arthropathy is seen bilaterally. The neural foramina are not well assessed. C4-C5: Not well evaluated due to postoperative change and severe motion. There is at least moderate central canal stenosis at this level with a minimum AP diameter of 7 mm. Uncovertebral and facet arthropathy are seen bilaterally and likely contribute to neural foraminal narrowing. C5-C6: A posterior disc osteophyte complex abuts the ventral cord. Uncovertebral and facet arthropathy contribute to bilateral neural foraminal stenosis. C6-C7: The central canal appears clear. Uncovertebral and facet arthropathy contribute to severe bilateral neural foraminal narrowing. C7-T1: Unremarkable. Soft tissues: There is significant prevertebral soft tissue edema which is nonspecific given recent surgery. A complex fluid collection anteriorly seen from C3 to C6 measures 4.7 cm in length, as seen on sagittal image #5 and likely represents a postoperative hematoma. The posterior soft tissues are normal as visualized. Brain parenchyma: Imaged brain parenchyma at the skull base is normal in appearance. IMPRESSION: 1. Severely motion compromised examination. This degrades diagnostic utility. 2. There is postoperative change from anterior spinal fusion seen at C3-C5. 3. There is severe central canal stenosis at the C3 and C4 levels with thinning of the cervical cord. Increased signal within the cervical cord at this level was also seen on the preoperative examination and likely represents myelomalacia . 4. There is no clear evidence of epidural fluid collection on this examination. This is not well evaluated. 5. Prevertebral soft tissue edema is nonspecific and likely related to recent surgery. A hematoma is suggested in the prevertebral soft tissues. Dictated: 11/18/2021 6:06 PM Transcribed: 11/18/2021 6:29 PM Marsha [id number] [email or web address] Electronically signed by: Wil Donnelly M.D. 11/18/2021 6:37 PM Chest X-Ray 11/18/21 15:04 XR chest 1V portable CLINICAL HISTORY: weakness. Evaluate cardiopulmonary status COMPARISON STUDY: 01/14/2021 TECHNIQUE: 1 view of the chest FINDINGS: Single frontal view of the chest demonstrates the cardiomediastinal silhouette to be within normal limits. The aorta is atherosclerotic and ectatic. There is a decreased inspiratory effort with elevation of the hemidiaphragms and crowding of the bronchovascular markings at the lung bases and centrally. The lungs are clear of alveolar opacities. There is no evidence for pleural effusion. There is no evidence for vascular congestion. There is no acute osseous pathology. IMPRESSION: 1. . There is a decreased inspiratory effort with otherwise no acute chest disease. ACT 112: Negative or not required by law. Electronically signed by: Ike Gallegos M.D. 11/18/2021 4:05 PM Code Status & VTE Plan VTE Prophylaxis Plan VTE Prophylaxis will be ordered: Yes PG Care Time/CCT Total # of Minutes Spent Total Time Spent with Patient: Total time spent is greater than 50% in coordination of care (as documented) at patient's floor/unit and/or counseling patient: Coding Level of Care Code 36097 Initial Inpt Care Lvl 3 Diagnoses Cervical radiculopathy M54.12 Hypertension I10 Dyslipidemia E78.5 CAD (coronary artery disease) I25.10 Atrial fibrillation I48.91 Fall W19.XXXA
[2021-11-18] MEDS ORDERED: POLYETHYLENE (MIRALAX) 17 GM PACK PO PRN (22:48)
[2021-11-18] MEDS ORDERED: ONDANSETRON INJ 2 MG/ML 2 ML VIAL IV PRN (22:48)
[2021-11-18] MEDS ORDERED: DOCUSATE SODIUM 100 MG CAP PO PRN (22:48)
[2021-11-18] MEDS ORDERED: traMADol HCL 50 MG TABLET PO PRN (22:48)
[2021-11-18] MEDS ORDERED: ACETAMINOPHEN 325 MG TAB PO PRN (22:48)
[2021-11-19] MEDS: VALSARTAN/SACUBITRIL 103/97MG TAB PO SCH ×2 (00:41→08:16)
[2021-11-19] MEDS: LACTATED RINGER'S 1,000 ML IV SCH ×2 (00:42→10:27)
[2021-11-19 06:12] LABS: Basophils # (auto) 0.01 K/uL (0-0.2); Basophils % (auto) 0.1 %; Eosinophils # (auto) 0.02 K/uL (0-0.5); Eosinophils % (auto) 0.1 %; Hematocrit (blood only) 37.2 % (42-52); Hemoglobin 12.6 g/dL (14.0-18.0); Immature Granulocytes # (auto) 0.06 K/uL (0.00-0.02); Immature Granulocytes % (auto) 0.4 %; Lymphocytes # (auto) 1.68 K/uL (1.2-3.4); Lymphocytes % (auto) 12.3 %; Mean Corpuscular Hemoglobin 33.2 pg (25-34); Mean Corpuscular Hgb Conc 33.9 g/dL (32-36); Mean Corpuscular Volume 98.2 fL (80-100); Mean Platelet Volume 10.7 fL (7.4-10.4); Monocytes # (auto) 1.38 K/uL (0.11-0.59); Monocytes % (auto) 10.1 %; Neutrophils # (auto) 10.54 K/uL (1.4-6.5); Platelet Count 260 K/uL (130-400); RDW Coefficient of Variation 12.7 % (11.5-14.5); RDW Standard Deviation 45.6 fL (36.4-46.3); Red Blood Count 3.79 M/uL (4.7-6.1); White Blood Count 13.69 K/uL (4.8-10.8)
[2021-11-19 06:37] LABS: Albumin Level 3.5 gm/dl (3.4-5.0); BUN Creatinine Ratio 22.5 (10-20); Bilirubin Direct 0.2 mg/dl (0-0.2); Bilirubin,Total 1.3 mg/dl (0.2-1.0); Calcium 8.6 mg/dl (8.5-10.1); Creatinine Clr Calc Pharmacy 125.9 ml/min; Est GFR (Non-African American) 95.7 ml/min; Potassium 4.2 mmol/L (3.5-5.1); Total Protein 5.8 gm/dl (6.0-8.3)
[2021-11-19] MEDS ORDERED: METOPROLOL SUCC 50MG EXT REL TAB PO SCH (09:00)
[2021-11-19] MEDS ORDERED: AMIODARONE 200 MG TAB PO SCH (09:00)
--- NOTE | 2021-11-19 13:31 | Discharge Summary ---
Date of Service November 19, 2021 Admission HPI Per Admitting Provider Jorge A Recinos is a 71yo male with history of atrial fibrillation on Eliquis anticoagulation, CAD, CHF, HTN, HLP and NICM presenting with weakness, fall at home with 12-15 hour down time. Patient was recently admitted to [facility] with cervical spinal stenosis. He had an ACDF of C3-C5 performed on 11/06/[address] Parrish. He was discharged home on 11/07/21. Patient states he had been doing fairly well since returning home. He has stable discomfort in his cervical spine appx 3/10 in severity. He has not required any of his prescribed Oxycodone. He reports some increased weakness and poor coordination of his bilateral upper extremities. He reports difficulty lifting his arms as well as grasping items. Last evening he was in the bathroom around 21:00 when his legs felt weak. He tried to get to his bed but ultimately collapsed on the floor. He was unable to get up. He tried to crawl around causing some abrasions on his knees, feet and toes. He denies chest pain, palpitations, cough, SOB, dizziness preceding or following the fall. He denies head or neck trauma, no LOC. He was wearing his C-collar at the time of the fall. He was ultimately found by family approximately 12-15 hours after the initial fall. He was laying on his stomach. In the ER patient afebrile, HD stable, NAD. Son is at bedside ER Course: Cefepime, Labetalol, NSS x 1500mL Principal Diagnosis cervical cord compression, quadriplegia, rhabdomyolysis Discharge Exam Constitutional WD/WN, vitals as above Eyes + anicteric sclerae ENMT external ear and nose normal, oropharynx normal right lower lip with hematoma and edema on right side Neck trachea midline, no thyromegaly Respiratory normal respiratory effort, lungs clear to auscultation + cough Cardiovascular RRR, no murmur, no edema Chest (Breasts) Chest: normal inspection of chest Gastrointestinal (Abdomen) normal bowel sounds, soft, nontender, no hepatosplenomegaly Musculoskeletal Extremities: extremities normal to inspection; no cyanosis and no clubbing Skin no rashes, warm and dry Neurologic awake Only able to move second and third fingers of right hand, otherwise 0/5 strength in upper and lower extremities bilaterally with significant spasticity especially in right leg with flexion at the knee Psychiatric A+Ox3, euthymic affect Lymphatic no lymphedema Discharge Data Allergies Allergy/AdvReac Type Severity Reaction Status Date / Time No Known Allergies Allergy Verified 11/18/21 17:43 Consultations 11/18/21 18:52 ED Decision to Admit Stat 11/18/21 22:48 Consult Orthopedic Surgery Routine Ordered Studies 11/18/21 15:04 MR cervical spine wo con Stat Hospital Course (1) Fall: 71yo male with history of HTN, HLP, AF, cervical spinal stenosis s/p C3-C5 ACDF performed by Dr. Parrish on 11/06/21 - now presenting with progressive upper and lower extremity weakness that started on 11/16 with tinging in hands and feet and then had weakness in arms and legs causing him to fall and lay on ground for a day until found and came to hospital. Patient with a ground level fall at home after his legs gave out - down on his floor for 12-15 hours. Presently with some bilateral UE weakness. MRI with small anterior hematoma - reviewed by ER physician as well as Dr. Parrish. Patient with leukocytosis - most likely reactive secondary to fall and prolonged down time. No obvious source of infection. Leukocytosis improving now Patient with mild elevation in CK most likely secondary to prolonged down time. CK now improving, treating with IVFs With severe upper and lower extremity weakness and spasticity currently Discussed care with Daniela Dunbar of [facility]-recommends transfer out for urgent surgical decompression as Dr. Parrish unavailable today -Maintain cervical collar -bedrest place Solo (2) Cervical myelopathy: as above (3) Hypertension: Blood pressure stable -Continue Entresto, metoprolol -Continue to monitor (4) Dyslipidemia: Chronic -continue Crestor (5) CAD (coronary artery disease): Patient denies chest pain -Hold ASA in setting of hematoma -Hold Crestor in setting of mildly elevated CK -Continue Metoprolol -Continue Entresto (6) Atrial fibrillation: Rate controlled, in sinus currently -Hold Eliquis -Continue metoprolol -Continue Amiodarone Ppx - SCDs Code - Full Dispo - transfer urgently to [facility] for NS eval Total Time Total Time Spent Total Time Spent (In Minutes): 45 min Total Time Includes: Examination of the Patient, Discharge Planning, Medication Reconciliation and Communication With Other Providers (Dr. Zuniga accepting physician at [facility]) Discharge Plan Discharge Items Patient Disposition: Transfer Acute Care Hospital Reason For Visit: WEAKNESS, S/P FALL Discharge Diagnosis: Cervical cord compression, post-operative hematoma,quadriplegia,mild rhabdomyolysis Condition on Discharge: Serious Activity: As commented below Lifting: None Exercise/Sports: Rest today Non-emergency contact: Primary Care Provider and Surgeon Call non-emergency contact if: you have any medication questions and your symptoms worsen Follow-up/Referrals: Adithya Jeffers [Primary Care Provider] - Diet: Nothing by Mouth Addtl Attending Provider Instructions: Transferred to [facility] Pending Studies at Discharge: No Stand-Alone Forms: [facility] Skilled Items Patient informed of condition?: Yes Discharge Level of Care: Other Communicable Disease: No Discharge Prognosis: Deteriorating Lines: Peripheral IV Urinary Catheter: Yes Medications and DC Order Prescriptions: Continued cyanocobalamin (vitamin B-12) 1,000 mcg/mL solution 1,000 mcg subcut .COMPLEX Qty: 8 RF: 0 furosemide [Lasix] 40 mg Tablet 40 mg PO QAM RF: 0 potassium chloride 10 mEq Capsule, Extended Release 10 meq PO QAM RF: 0 amiodarone 200 mg Tablet 200 mg PO QAM RF: 0 vitamin E 400 unit Capsule 400 unit PO HS RF: 0 sildenafil [Viagra] 50 mg Tablet 50 mg PO DAILY PRN (Reason: Erectile Dysfunction) RF: 0 metoprolol succinate 50 mg Tablet Extended Release 24 Hr 100 mg PO QAM RF: 0 aspirin 81 mg Tablet,Delayed Release (Dr/Ec) 81 mg PO QPM RF: 0 rosuvastatin 10 mg Tablet 10 mg PO QAM RF: 0 cyanocobalamin (vitamin B-12) [Vitamin B-12] 1,000 mcg Tablet 1,000 mcg PO HS RF: 0 Entresto 97-103 mg Tablet 1 tab PO BID RF: 0 tramadol 50 mg tablet 50 mg PO Q6H PRN (Reason: pain, moderate) Qty: 20 RF: 0 oxycodone 5 mg tablet 5 mg PO Q6H PRN (Reason: pain, severe) Qty: 20 RF: 0 Discharge Orders: Discharge Order (Routine); Ordered 11/19/21 Ordered By: Joy Cowan Admission Data Admit Date/Time: 11/18/21 19:39 Attending Provider: Joy Cowan Admit Provider: Ruth Russell Primary Care Provider: Adithya Jeffers Other Providers: Saulo Swift ; Jorge Parrish Coding Level of Care Code D/C DAY MANAGEMENT >30 MINS Diagnoses Fall W19.XXXA Hypertension I10 Dyslipidemia E78.5 CAD (coronary artery disease) I25.10 Atrial fibrillation I48.91 Cervical myelopathy G95.9
--- NOTE | 2021-11-22 08:33 | Coding Query ---
CODING QUERY To promote full compliance with coding requirements relating to patient care, provider participation is requested in all cases of hcc coders uncertainty. Please assist us with the question(s) below: Coding Question(s): Pt prior 11/06 cervical fusion adm after fall, down 12 plus hours .. cervical myelopathy . Rad tests C3-C4 level narrowing. Pt was transferred out to [place] for surgical intervention. The DS mentioned patient was only able to move his 2nd and 3rd fingers of the right hand. Seeking to clarify the type of quadriplegia. Please check below . Thanks for your help. Chad Palma [facility] Physician's Response(s): Please check below the type of Quadriplegia : C1-C4 Complete C1-C4 Incomplete C5-C7 Complete ___x___ C5-C7 Incomplete Cannot clinically correlate the degree of Quadriplegia Principal Diagnosis: "that condition established after study, to be chiefly responsible for occasioning the admission of the patient to the hospital for care." Co-Existing Principal Diagnosis: "when two or more diagnoses equally meet the criteria for principal diagnosis as determined by the circumstances of admission, diagnostic work up, and/or therapy provided, and the Alphabetic Index, Tabular List, or another coding guideline does not provide sequencing direction, any one of the diagnoses may be sequenced first." "When the physician has documented what appears to be a current diagnosis in the body of the record, but has not included the diagnosis in the final diagnostic statement, the physician should be asked whether the diagnosis should be added." (Source Coding Clinic 2 QTR90. p3-4) GONZALO
== END 2021-11-19 14:47 | disposition short-term general hospital (02) | DRG 919 ==
LOC: ED 14:18 → SUATTDRO 19:39 → EDINP 19:39